=== PATIENT | male | born 1955 | race African-American/Black ===

== ENCOUNTER 2017-02-03 02:05 | Inpatient (IN) | payer MEDICAID ==
--- NOTE | 2017-02-03 02:19 | ER Document Report ---
ED General - General Chief Complaint: General Weakness Stated Complaint: GENEREAL WEAKNESS Time Seen by Provider: 02/03/17 02:09 Notes: Patient is a 61-year-old male presents with complaint of diarrhea and slurred speech. He says his symptoms been ongoing for several days. He said on Wednesday his friend came back from [place] and they drink some [place] and run. Since then he has been having issues with diarrhea. He started having slurring of speech. He denies any weakness or numbness in any of his extremities. He does have history of high blood pressure and does take high blood pressure medications. He denies any pain. He denies headache. No abdominal pain. No chest pain. He denies fevers. Past Medical History - Social History Smoking Status: Unknown if Ever Smoked Frequency of alcohol use: None Drug Abuse: None Family History: Reviewed & Not Pertinent Review of Systems - Review of Systems Notes: My Normal Review Basic REVIEW OF SYSTEMS: CONSTITUTIONAL : Denies fever, chills, or sweats. Denies recent illness. EENT: Denies eye, ear, throat, or mouth pain or symptoms. Denies nasal or sinus congestion. CARDIOVASCULAR: Denies chest pain. RESPIRATORY: Denies cough, cold, or chest congestion. Denies shortness of breath, difficulty breathing, or wheezing. GASTROINTESTINAL: Denies abdominal pain. Diarrhea. Denies constipation. Last BM: MUSCULOSKELETAL: Denies neck or back pain or joint pain or swelling. SKIN: Denies rash or skin lesions. NEUROLOGICAL: Denies altered mental status or loss of consciousness. Denies headache. Denies weakness or paralysis or loss of use of either side. Slurred speech. Denies sensory or motor loss. ALL OTHER SYSTEMS REVIEWED AND NEGATIVE. Physical Exam - Vital signs Vitals: Resp BP 34 H 157/116 H 02/03/17 02:12 02/03/17 02:12 - Notes Notes: General Appearance: Well nourished, alert, cooperative, no acute distress, no obvious discomfort. Vitals: reviewed, See vital signs table. Head: no swelling or tenderness to the head Eyes: PERRL, EOMI, Conjuctiva clear Mouth: No decreasd moisture Throat: No tonsillar inflammation, No airway obstruction Neck: Supple, no neck tenderness Lungs: No wheezing, No rales, No rhonci, No accessory muscle use, good air exchange bilaterally. Heart: Normal rate, Regular rythm, Abdomen: Normal BS, soft, No rigidity, No abdominal tenderness, No guarding, no rebound, no abdominal masses, Extremities: strength 5/5 in all extremities, good pulses in all extremities, no swelling or tenderness in the extremities, no edema. Skin: warm, dry, appropriate color, no rash Neuro: speech is slurred, oriented x 3, normal affect, responds appropriately to questions. Cranial nerves II through XII are intact with exception of slurred speech. Patient has good strength in all 4 extremities. Distal sensation intact. Gait not tested. Course - Re-evaluation Re-evalutation: 02/03/17 05:25 I attempted lumbar punctures patient initially had some slurring of speech. Lumbar puncture was unsuccessful in 2 attempts. After a fluid bolus patient is now talking normally. He is he has any questions appropriately and his speech is not slurred. Less concerned with meningitis or encephalitis this time being the patient's speech is completely normalized. We are still awaiting his urinalysis. He is been able to urinate. I suspect that he is very dehydrated. Patient will require admission. It is unclear if the patient does have some some form of infection or if this is all metabolic. 02/03/17 05:35 I did speak with Dr. Renee who agrees to admit the patient. At this time the exact cause of his condition is unclear. He has improved greatly since being here after receiving IV fluids. His heart rate has improved. His slurred speech has resolved. I initially did attempt a lumbar puncture because of the slurred speech and being unclear if this was infection. Being the patient's neurologic status is completely back to normal think it is unlikely that he has encephalitis or meningitis. At this time I feel the patient stable for admission. We are still awaiting a urinalysis. We will continue give the patient some IV fluids. I suspect he is very dehydrated and that is why is given a urine. Patient continues to deny any pain. Dictation of this chart was performed using voice recognition software; therefore, there may be some unintended grammatical errors. - Vital Signs Vital signs: Temp Pulse Resp BP Pulse Ox 27 H 156/105 H 93 02/03/17 05:20 02/03/17 05:20 02/03/17 05:20 - Laboratory Result Diagrams: 02/03/17 02:12 02/03/17 03:00 Laboratory results interpreted by me: 02/03/17 02/03/17 02/03/17 02:12 03:00 03:00 WBC 14.4 H RDW 14.4 H Seg Neutrophils % 87.3 H Lymphocytes % 7.3 L Absolute Neutrophils 12.5 H Sodium 134.3 L Potassium 3.2 L Carbon Dioxide 14 L BUN 48 H Creatinine 2.94 H Est GFR ( Amer) 27 L Est GFR (Non-Af Amer) 22 L Glucose 137 H Direct Bilirubin 0.6 H AST 143 H ALT 84 H Creatine Kinase 2208 H CK-MB (CK-2) 8.81 H - EKG Interpretation by Me Additional EKG results interpreted by me: 02/03/17 02:23 EKG is reviewed and interpreted by me. EKG shows sinus tachycardia with a rate of [address] segment elevation or depression. No ischemic T-wave inversions. NC interval, QRS duration, QTc intervals are within normal range. No old EKG available for comparison. Discharge - Discharge Clinical Impression: Metabolic acidosis, Slurred speech, Dehydration Leukocytosis Qualifiers: Leukocytosis type: unspecified Qualified Code(s): D72.829 - Elevated white blood cell count, unspecified Condition: Stable Disposition: ADMITTED INPATIENT Admitting Provider: Nicholas Unit Admitted: IMCU Referrals: MERRILL RENEE MD [Primary Care Provider] - Follow up as needed
[2017-02-03 02:42] LABS: ABSOLUTE BASOPHILS # (AUTO) 0.1 10^3/uL (0.0-0.2); ABSOLUTE LYMPHOCYTES (AUTO) 1.1 10^3/uL (0.5-4.7); ABSOLUTE MONOCYTES (AUTO) 0.7 10^3/uL (0.1-1.4); ABSOLUTE NEUT (AUTO) 12.5 10^3/uL (1.7-8.2); BASOPHILS % (AUTO) 0.5 % (0-2); HEMATOCRIT 46.9 % (37.9-51.0); HEMOGLOBIN 16.1 g/dL (13.5-17.0); HGB HCT DIFFERENCE 1.4; LYMPHOCYTES % (AUTO) 7.3 % (13-45); MEAN CORPUSCULAR HEMOGLOBIN 33.1 pg (27.0-33.4); MEAN CORPUSCULAR HGB CONC 34.4 g/dL (32.0-36.0); MEAN CORPUSCULAR VOLUME 96 fl (80-97); MONOCYTES % (AUTO) 4.9 % (3-13); RED BLOOD COUNT 4.88 10^6/uL (4.35-5.55); RED CELL DISTRIBUTION WIDTH 14.4 % (11.5-14.0); SEGMENTED NEUTROPHILS % (AUTO) 87.3 % (42-78); WHITE BLOOD COUNT 14.4 10^3/uL (4.0-10.5)
--- NOTE | 2017-02-03 03:08 | RADIOLOGY REPORT (SQ) ---
EXAM DESCRIPTION: CT HEAD WITHOUT COMPLETED DATE/TIME: 02/03/2017 2:31 am REASON FOR STUDY: confusion COMPARISON: None. TECHNIQUE: Axial images acquired through the brain without intravenous contrast. Images reviewed wi th bone, brain and subdural windows. Images stored on PACS. All CT scanners at this facility use dose modulation, iterative reconstruction, and/or weight based d osing when appropriate to reduce radiation dose to as low as reasonably achievable (ALARA). [facility]: Dose Right [facility]: CareDose [facility]: Dose Right [facility]: Teradose 4D [facility]: Smart Particle RADIATION DOSE: Up-to-date CT equipment and radiation dose reduction techniques were employed. CTDIv ol: 55.3 mGy. DLP: 996 mGy-cm. mGy. LIMITATIONS: None. FINDINGS: VENTRICLES: Normal size and contour. CEREBRUM: No mass effect. No hemorrhage. No midline shift. Normal matamoros/white matter differentiatio n. No evidence for acute territorial infarction. CEREBELLUM: No mass effect. No hemorrhage. No alteration of density. No evidence for acute infarct ion. EXTRAAXIAL SPACES: No fluid collections. ORBITS AND GLOBE: Symmetrical contour of the globes. CALVARIUM: No depressed skull fracture. PARANASAL SINUSES: No air-fluid level. SOFT TISSUES: No hematoma. IMPRESSION: No acute intracranial hemorrhage or acute territorial infarct. COMMENT: Quality ID # 436: Final reports with documentation of one or more dose reduction techniques (e.g., Automated exposure control, adjustment of the mA and/or kV according to patient size, use of iterative reconstruction technique) TECHNICAL DOCUMENTATION: JOB ID: [id number]- All Rights Reserved
--- NOTE | 2017-02-03 03:19 | RADIOLOGY REPORT (SQ) ---
EXAM DESCRIPTION: CHEST SINGLE VIEW COMPLETED DATE/TIME: 02/03/2017 2:35 am REASON FOR STUDY: confusion COMPARISON: None. EXAM PARAMETERS: NUMBER OF VIEWS: One view. TECHNIQUE: Single frontal radiographic view of the chest acquired. RADIATION DOSE: NA LIMITATIONS: None. FINDINGS: LUNGS AND PLEURA: Ground-glass opacity in the left upper lobe. No pleural effusion or pne umothorax. MEDIASTINUM AND HILAR STRUCTURES: No masses. Contour normal. HEART AND VASCULAR STRUCTURES: Heart normal in size. Normal vasculature. BONES: No acute findings. HARDWARE: None in the chest. IMPRESSION: Ground-glass opacity in the left upper lobe, may represent pneumonia. Radiographic foll owup recommended to ensure complete resolution and exclude a different etiology. TECHNICAL DOCUMENTATION: JOB ID: [id number]
[2017-02-03 03:28] LABS: ALANINE AMINOTRANSFERASE 84 U/L (21-72); ALBUMIN 3.6 g/dL (3.5-5.0); ALKALINE PHOSPHATASE 53 U/L (38-126); ANION GAP 17 (5-19); ASPARTATE AMINO TRANSFERASE 143 U/L (17-59); BILIRUBIN,DIRECT 0.6 mg/dL (0.0-0.4); BILIRUBIN,TOTAL 0.6 mg/dL (0.2-1.3); BLOOD UREA NITROGEN 48 mg/dL (7-20); CALCIUM 8.9 mg/dL (8.4-10.2); CARBON DIOXIDE 14 mmol/L (22-30); CHLORIDE 103 mmol/L (98-107); CREATININE RESULT 2.94 mg/dL (0.52-1.25); GLUCOSE 137 mg/dL (75-110); POTASSIUM 3.2 mmol/L (3.6-5.0); SODIUM 134.3 mmol/L (137-145); TOTAL PROTEIN 6.7 g/dL (6.3-8.2)
[2017-02-03 03:36] LABS: ALCOHOL < 10 mg/dL (NONE DETECTED); CREATINE KINASE 2208 U/L (55-170)
[2017-02-03 03:40] LABS: CREATINE KINASE MB 8.81 ng/mL (<4.55)
[2017-02-03 03:49] LABS: TROPONIN I 0.039 ng/mL
[2017-02-03] MEDS ORDERED: NORMAL SALINE 1000 ML 1,000 ML IV ONE ×2 (03:59→04:22)
[2017-02-03] MEDS ORDERED: CEFTRIAXONE INJ 1000 MG VIAL IV ONE (04:21)
[2017-02-03] MEDS ORDERED: LIDOCAINE 1% INJ-PF (10 MG/ML) 30 ML SDV INJ ONE (04:22)
--- NOTE | 2017-02-03 07:52 | EKG REPORT ---
SEVERITY:- ABNORMAL ECG - SINUS TACHYCARDIA LEFT AXIS DEVIATION OLD INFERIOR [facility] : Confirmed by: Jacobo Macias MD 03-Feb-2017 07:52:15
[2017-02-03 08:32] LABS: ARTERIAL BLOOD BASE EXCESS -7.3 mmol/L; ARTERIAL BLOOD O2 SATURATION 97.1 % (94-98)
--- NOTE | 2017-02-03 09:08 | RADIOLOGY REPORT (SQ) ---
EXAM DESCRIPTION: CHEST PA/LAT COMPLETED DATE/TIME: 02/03/2017 8:41 am REASON FOR STUDY: acute kidney injury COMPARISON: AP chest 02/03/2017 EXAM PARAMETERS: NUMBER OF VIEWS: two views TECHNIQUE: Digital Frontal and Lateral radiographic views of the chest acquired. RADIATION DOSE: NA LIMITATIONS: none FINDINGS: LUNGS AND PLEURA: Persistent airspace disease in the left upper lobe worrisome for pneumon ia. Remainder of the lungs are well inflated and clear. No pleural effusion. No pneumothorax. MEDIASTINUM AND HILAR STRUCTURES: No masses or contour abnormalities. HEART AND VASCULAR STRUCTURES: Heart normal size. No evidence for failure. BONES: No acute findings. HARDWARE: None in the chest. OTHER: No other significant finding. IMPRESSION: Persistent airspace disease left upper lobe. TECHNICAL DOCUMENTATION: JOB ID: [id number] [employer]- All Rights Reserved
--- NOTE | 2017-02-03 09:13 | RADIOLOGY REPORT (SQ) ---
EXAM DESCRIPTION: U/S RETROPERITON (RENAL/AORTA) COMPLETED DATE/TIME: 02/03/2017 8:57 am REASON FOR STUDY: acute kidney injury COMPARISON: None. TECHNIQUE: Dynamic and static grayscale images acquired of the kidneys and bladder and recorded on P ACS. Additional selected color Doppler and spectral images recorded. LIMITATIONS: None. FINDINGS: RIGHT KIDNEY: 9.5 cm in length with normal cortical thickness but mild increased cortical echogenicity. No solid or suspicious masses. No hydronephrosis. No calcifications. LEFT KIDNEY: 9.7 cm in length with normal cortical thickness with mild increased cortical echogenici ty. No solid or suspicious masses. No hydronephrosis. No calcifications. BLADDER: No masses. Distended with urine. There is debris in the dependent portion of the bladder OTHER FINDINGS: No other significant finding. IMPRESSION: Mild increased renal parenchymal echogenicity from medical renal disease. No hydronephr osis, cysts, stones, or masses. TECHNICAL DOCUMENTATION: JOB ID: [id number] [employer]- All Rights Reserved
[2017-02-03 10:09] LABS: ABSOLUTE LYMPHOCYTES (AUTO) 1.3 10^3/uL (0.5-4.7); ABSOLUTE MONOCYTES (AUTO) 0.7 10^3/uL (0.1-1.4); ABSOLUTE NEUT (AUTO) 9.5 10^3/uL (1.7-8.2); BASOPHILS % (AUTO) 0.3 % (0-2); HEMATOCRIT 47.1 % (37.9-51.0); HEMOGLOBIN 16.1 g/dL (13.5-17.0); HGB HCT DIFFERENCE 1.2; LYMPHOCYTES % (AUTO) 11.6 % (13-45); MEAN CORPUSCULAR HEMOGLOBIN 33.1 pg (27.0-33.4); MEAN CORPUSCULAR HGB CONC 34.2 g/dL (32.0-36.0); MEAN CORPUSCULAR VOLUME 97 fl (80-97); MONOCYTES % (AUTO) 6.2 % (3-13); RED BLOOD COUNT 4.86 10^6/uL (4.35-5.55); RED CELL DISTRIBUTION WIDTH 14.7 % (11.5-14.0); SEGMENTED NEUTROPHILS % (AUTO) 81.9 % (42-78); WHITE BLOOD COUNT 11.6 10^3/uL (4.0-10.5)
[2017-02-03 10:18] LABS: PROTHROMBIN TIME 14.4 SEC (11.4-15.4)
[2017-02-03 10:19] LABS: PARTIAL THROMBOPLASTIN TIME 36.9 SEC (23.5-35.8)
[2017-02-03 10:38] LABS: ALANINE AMINOTRANSFERASE 103 U/L (21-72); ALBUMIN 3.6 g/dL (3.5-5.0); ALKALINE PHOSPHATASE 56 U/L (38-126); AMYLASE 81 U/L (30-110); ANION GAP 17 (5-19); ASPARTATE AMINO TRANSFERASE 187 U/L (17-59); BILIRUBIN,DIRECT 0.5 mg/dL (0.0-0.4); BILIRUBIN,TOTAL 0.5 mg/dL (0.2-1.3); BLOOD UREA NITROGEN 47 mg/dL (7-20); CARBON DIOXIDE 16 mmol/L (22-30); CHLORIDE 103 mmol/L (98-107); CREATININE RESULT 2.91 mg/dL (0.52-1.25); GLUCOSE 125 mg/dL (75-110); LIPASE 230.9 U/L (23-300); MAGNESIUM 2.5 mg/dL (1.6-2.3); POTASSIUM 3.2 mmol/L (3.6-5.0); SODIUM 136.3 mmol/L (137-145); TOTAL PROTEIN 6.8 g/dL (6.3-8.2)
[2017-02-03 10:51] LABS: TROPONIN I 0.046 ng/mL
[2017-02-03 11:09] LABS: THYROID STIMULATING HORMONE 1.21 uIU/mL (0.47-4.68)
[2017-02-03] MEDS ORDERED: ACETAMINOPHEN 325 MG TABLET ONE (12:21)
[2017-02-03] MEDS: HEPARIN SOD (PORCINE) 5,000 UNIT/ML 1 ML SYRINGE SUBCUT SCH ×2 (13:50→21:37)
[2017-02-03] MEDS: METRONIDAZOLE 500 MG/NS RTU 100 ML IV SCH ×2 (13:50→21:41)
[2017-02-03] MEDS ORDERED: LEVOFLOXACIN 500 MG/D5W RTU 500 MG/100 ML RTUPB IV ONE (14:00)
[2017-02-03 14:33] LABS: CREATINE KINASE MB 15.7 ng/mL (<4.55); TROPONIN I 0.046 ng/mL
[2017-02-03] MEDS ORDERED: CEFEPIME HCL 1.5 GM in DEXTROSE 5%-WATER 50 ML IV ONE (15:00)
--- NOTE | 2017-02-03 15:05 | RADIOLOGY REPORT (SQ) ---
EXAM DESCRIPTION: CT CHEST WITHOUT COMPLETED DATE/TIME: 02/03/2017 2:54 pm REASON FOR STUDY: PNEUMONIA COMPARISON: Chest films 02/03/2017 TECHNIQUE: CT scan performed of the chest without intravenous contrast. Images reviewed with lung, soft tissue and bone windows. Reconstructed coronal and sagittal MPR images reviewed. All images st ored on PACS. All CT scanners at this facility use dose modulation, iterative reconstruction, and/or weight based d osing when appropriate to reduce radiation dose to as low as reasonably achievable (ALARA). [facility]: Dose Right [facility]: CareDose [facility]: Dose Right [facility]: Teradose 4D [facility]: Smart [employer] RADIATION DOSE: Up-to-date CT equipment and radiation dose reduction techniques were employed. CTDIv ol: 9.4 mGy. DLP: 344 mGy-cm. mGy. LIMITATIONS: No technical limitations. FINDINGS: LUNGS AND PLEURA: There is dense consolidation in the left upper lobe worrisome for acute pneumonia. There is minimal atelectasis in both posterior costophrenic sulci. No significant pleural effusion. No pneumothorax. HILAR AND MEDIASTINAL STRUCTURES: No identified masses or abnormal nodes. No obvious aneurysm. HEART AND VASCULAR STRUCTURES: No aneurysm. No pericardial effusion. 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 Very heavy coronary artery calcifications. UPPER ABDOMEN: No significant findings. Limited exam. THYROID AND OTHER SOFT TISSUES: No masses. No adenopathy. BONES: No significant finding. HARDWARE: None in the chest. OTHER: No other significant findings. IMPRESSION: Left upper lobe pneumonia. TECHNICAL DOCUMENTATION: JOB ID: [id number] Quality ID # [id number]: Final reports with documentation of one or more dose reduction techniques (e.g., Au tomated exposure control, adjustment of the mA and/or kV according to patient size, use of iterative reconstruction technique) 2010 [employer]- All Rights Reserved
[2017-02-03] MEDS ORDERED: POTASSIUM CHLORIDE 10 MEQ TABLET.SA PO ONE (15:30)
[2017-02-03 16:47] LABS: AMORPHOUS SEDIMENT,URINE TRACE /HPF; APPEARANCE,URINE CLOUDY; BILIRUBIN,URINE NEGATIVE (NEGATIVE); GLUCOSE, URINE NEGATIVE (NEGATIVE); KETONES,URINE NEGATIVE (NEGATIVE); LEUKOCYTE ESTERASE,URINE NEGATIVE (NEGATIVE); NITRITE,URINE NEGATIVE (NEGATIVE); PROTEIN,URINE 100 mg/dL (NEGATIVE); URINE SPECIFIC GRAVITY 1.013; UROBILINOGEN,URINE NEGATIVE mg/dL (<2.0)
[2017-02-03 16:55] LABS: URINE BARBITURATES SCREEN NEGATIVE; URINE METHADONE SCREEN NEGATIVE; URINE OPIATES LOW NEGATIVE; URINE PHENCYCLIDINE SCREEN NEGATIVE
--- NOTE | 2017-02-03 16:56 | PDOC H&P ---
History of Present Illness Admission Date/PCP: 02/03/17 07:48 MERRILL RENEE MD History of Present Illness: BUTCH BIRD is a 61 year old male, he has a history of hypertension he came to the emergency room last night for evaluation of generalized weakness he apparently had alcohol, rum on Wednesday with a friend that came back from [place]. Since he had the alcohol he has been having symptoms of diarrhea and recently his speech was slurred. There is no focal weakness. He was evaluated in the emergency room, lumbar puncture was attempted without success. A CAT scan of the head was done in the emergency room, it was negative for any acute pathology the initial blood work that was done in the emergency room showed WBC 14.4, BUN 48, serum creatinine 2.94, CPK 2208, AST 143, ALT 84 EKG showed sinus tachycardia with the rate of 1 22 bpm. He was also acidotic. When I saw patient on the floor, he was awake, the speech was slurred to some degree.. CT chest was done without contrast, it showed a dense consolidation in the left upper lobe worrisome for acute pneumonia, because of the acute kidney injury kidney ultrasound was done it showed mild increased renal parenchyma echogenicity for medical renal disease there was no hydronephrosis no cyst no masses or stones. Patient stated that after he took the alcohol he felt intoxicated very quickly. Past Medical History Cardiac Medical History: Reports: Hypertension Psychiatric Medical History: Reports: Depression Social History Smoking Status: Current Some Day Smoker Cigarettes Packs Per Day: 10 Frequency of Alcohol Use: Occasional Hx Recreational Drug Use: No Hx Prescription Drug Abuse: No - Advance Directive Resuscitation Status: Full Code Family History Family History: Reviewed & Not Pertinent Parental Family History Reviewed: Yes Children Family History Reviewed: Yes Sibling(s) Family History Reviewed.: Yes Medication/Allergy Home Medications: Amlodipine Besylate [Norvasc 10 mg Tablet] 10 mg PO DAILY 02/03/17 Hydrochlorothiazide [Hydrodiuril 12.5 mg Capsule] 12.5 mg PO DAILY 02/03/17 Metoprolol Succinate [Toprol Xl 25 mg Tab.sr] 25 mg PO Q12 02/03/17 Allergies/Adverse Reactions: lisinopril Allergy (Verified 02/03/17 08:12) Angioedema Review of Systems Constitutional: PRESENT: fever(s) Eyes: ABSENT: visual disturbances Ears: ABSENT: hearing changes Cardiovascular: ABSENT: as per HPI, chest pain, dyspnea on exertion, edema, orthropnea, palpitations, other Respiratory: PRESENT: cough, dyspnea Gastrointestinal: PRESENT: diarrhea Genitourinary: ABSENT: as per HPI, difficulty urinating, dysuria, hematuria, nocturia, other Musculoskeletal: ABSENT: joint swelling Integumentary: ABSENT: rash, wounds Neurological: PRESENT: abnormal speech Psychiatric: ABSENT: anxiety, depression, homidical ideation, suicidal ideation Endocrine: ABSENT: cold intolerance, heat intolerance, menstrual abnormalities, polydipsia, polyuria Hematologic/Lymphatic: ABSENT: easy bleeding, easy bruising, lymphadenopathy Physical Exam Vital Signs: Temp Pulse Resp BP Pulse Ox 98.2 F 86 16 143/92 H 99 02/03/17 15:10 02/03/17 15:10 02/03/17 15:10 02/03/17 15:10 02/03/17 15:10 Intake & Output 02/02/17 02/03/17 02/04/17 06:59 06:59 06:59 Intake Total 710 Balance 710 Weight 87.9 kg General appearance: PRESENT: no acute distress, well-developed, well-nourished Head exam: PRESENT: atraumatic, normocephalic Eye exam: PRESENT: conjunctiva pink, EOMI, PERRLA Ear exam: PRESENT: normal external ear exam Mouth exam: PRESENT: dry mucosa Neck exam: PRESENT: full ROM Respiratory exam: PRESENT: rales Cardiovascular exam: PRESENT: RRR, +S1, +S2 Pulses: PRESENT: normal dorsalis pedis pul, +2 pedal pulses bilateral Vascular exam: PRESENT: normal capillary refill GI/Abdominal exam: PRESENT: distended, normal bowel sounds, soft Rectal exam: PRESENT: deferred Neurological exam: PRESENT: alert, CN II-XII grossly intact Skin exam: PRESENT: dry, intact, warm Results Laboratory Results: 02/03/17 09:48 02/03/17 09:48 02/03/17 02/03/17 02/03/17 08:20 09:48 09:48 WBC 11.6 H RBC 4.86 Hgb 16.1 Hct 47.1 MCV 97 MCH 33.1 MCHC 34.2 RDW 14.7 H Plt Count 195 Seg Neutrophils % 81.9 H Lymphocytes % 11.6 L Monocytes % 6.2 Eosinophils % 0.0 Basophils % 0.3 Absolute Neutrophils 9.5 H Absolute Lymphocytes 1.3 Absolute Monocytes 0.7 Absolute Eosinophils 0.0 Absolute Basophils 0.0 Carbonic Acid 0.67 L HCO3/H2CO3 Ratio 21:1 ABG pH 7.43 ABG pCO2 22.4 L ABG pO2 87.6 ABG HCO3 14.6 L ABG O2 Saturation 97.1 ABG Base Excess -7.3 FiO2 21 Sodium Potassium Chloride Carbon Dioxide Anion Gap BUN Creatinine Est GFR ( Amer) Est GFR (Non-Af Amer) Glucose Lactic Acid 1.8 Calcium Phosphorus Magnesium Total Bilirubin AST ALT Alkaline Phosphatase Ammonia Total Protein Albumin Amylase Lipase TSH Free T4 02/03/17 02/03/17 02/03/17 09:48 09:48 09:48 WBC RBC Hgb Hct MCV MCH MCHC RDW Plt Count Seg Neutrophils % Lymphocytes % Monocytes % Eosinophils % Basophils % Absolute Neutrophils Absolute Lymphocytes Absolute Monocytes Absolute Eosinophils Absolute Basophils Carbonic Acid HCO3/H2CO3 Ratio ABG pH ABG pCO2 ABG pO2 ABG HCO3 ABG O2 Saturation ABG Base Excess FiO2 Sodium 136.3 L Potassium 3.2 L Chloride 103 Carbon Dioxide 16 L Anion Gap 17 BUN 47 H Creatinine 2.91 H Est GFR ( Amer) 27 L Est GFR (Non-Af Amer) 22 L Glucose 125 H Lactic Acid Calcium 9.0 Phosphorus 4.0 Magnesium 2.5 H Total Bilirubin 0.5 AST 187 H ALT 103 H Alkaline Phosphatase 56 Ammonia < 8.7 L Total Protein 6.8 Albumin 3.6 Amylase 81 Lipase 230.9 TSH 1.21 Free T4 1.25 02/03/17 02/03/17 02/03/17 09:48 09:48 09:48 Creatine Kinase 2837 H CK-MB (CK-2) 16.00 H Troponin I 0.046 NT-Pro-B Natriuret Pep 184 02/03/17 02/03/17 13:52 13:52 Creatine Kinase 2747 H CK-MB (CK-2) 15.70 H Troponin I 0.046 NT-Pro-B Natriuret Pep Impressions: Chest CT 02/03/17 00:00 IMPRESSION: Left upper lobe pneumonia. Renal Ultrasound 02/03/17 00:00 IMPRESSION: Mild increased renal parenchymal echogenicity from medical renal disease. No hydronephrosis, cysts, stones, or masses. Head CT 02/03/17 02:14 IMPRESSION: No acute intracranial hemorrhage or acute territorial infarct. Chest X-Ray 02/03/17 07:51 IMPRESSION: Persistent airspace disease left upper lobe. Assessment & Plan - Diagnosis (1) Aspiration pneumonia of left upper lobe Qualifiers: Aspiration pneumonia type: unspecified Qualified Code(s): J69.0 - Pneumonitis due to inhalation of food and vomit Is this a current diagnosis for this admission?: Yes (2) Left upper lobe pneumonia Qualifiers: Pneumonia type: aspiration pneumonia Aspiration pneumonia type: unspecified Qualified Code(s): J69.0 - Pneumonitis due to inhalation of food and vomit Plan: Patient presented with left upper lobe pneumonia probably due to aspiration after he was intoxicated with alcohol, he will empirically be treated with IV antibiotic to cover community-acquired organisms including gram-negative pathogens and gram-positive organisms. (3) Acute kidney injury Is this a current diagnosis for this admission?: Yes Plan: The urinalysis was positive for protein, blood on dipstick, microscopic showed red blood cell cast, suggesting acute glomerulonephritis. The kidney ultrasound that was done suggest medical renal disease the acute glomerulonephritis is probably infection related. (4) Rhabdomyolysis Qualifiers: Rhabdomyolysis type: non-traumatic Qualified Code(s): M62.82 - Rhabdomyolysis Is this a current diagnosis for this admission?: Yes Plan: The CPK is elevated, there is associated acute kidney injury, urine myoglobin is ordered. He be treated with IV fluid isotonic saline at 120 cc/h (5) Slurred speech Is this a current diagnosis for this admission?: Yes Plan: This slow speech could be due to a metabolic encephalopathy, CT scan of the head was negative for any acute pathology, MRI of the head is ordered.
--- NOTE | 2017-02-03 17:50 | RADIOLOGY REPORT (SQ) ---
EXAM DESCRIPTION: MRI HEAD WITHOUT COMPLETED DATE/TIME: 02/03/2017 5:36 pm REASON FOR STUDY: slurred speech,suspect stroke COMPARISON: CT brain 02/03/2017 TECHNIQUE: Multiplanar imaging includes non-contrasted T1, T2, FLAIR, and diffusion with ADC map seq uences. Images stored on PACS. LIMITATIONS: Motion artifact FINDINGS: ANATOMY: No anomalies. Normal vascular flow voids. Pituitary fossa normal. CSF SPACES: Normal in size and contour. No hemorrhage. CEREBRUM: Sulci and gyri normal in size and contour. Minimal spotty increased bifrontal and bipariet al white matter signal on FLAIR imaging from small vessel ischemic change. 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 No evidence of hemorrhage, mass, or extraaxial fluid collection. POSTERIOR FOSSA: No signal alteration. No hemorrhage. No edema, masses or mass effect. Internal antionette tory canals, cerebello-pontine angles, mastoids normal. DIFFUSION IMAGING: Negative for acute or sub-acute infarction. ORBITS: No masses. Globes normal. PARANASAL SINUSES: No fluid levels. Mucosa normal. OTHER: No other significant finding. IMPRESSION: Minimal chronic white matter disease. 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 No acute find ings. EVIDENCE OF ACUTE STROKE: NO. TECHNICAL DOCUMENTATION: JOB ID: [id number] [employer]- All Rights Reserved
[2017-02-03 21:21] LABS: CREATINE KINASE MB 14.5 ng/mL (<4.55); TROPONIN I 0.032 ng/mL
[2017-02-03] MEDS: CEFEPIME HCL 1.5 GM in DEXTROSE 5%-WATER 50 ML IV SCH (22:44)
[2017-02-03] MEDS: NORMAL SALINE 1000 ML 1,000 ML IV PRN (22:46)
[2017-02-04] MEDS: ACETAMINOPHEN 325 MG TABLET PO PRN ×2 (00:12→14:32)
[2017-02-04] MEDS: METRONIDAZOLE 500 MG/NS RTU 100 ML IV SCH ×3 (05:48→21:21)
[2017-02-04] MEDS: HEPARIN SOD (PORCINE) 5,000 UNIT/ML 1 ML SYRINGE SUBCUT SCH ×3 (05:48→21:24)
[2017-02-04 06:42] LABS: ABSOLUTE MONOCYTES (AUTO) 0.6 10^3/uL (0.1-1.4); ABSOLUTE NEUT (AUTO) 6.6 10^3/uL (1.7-8.2); BASOPHILS % (AUTO) 0.4 % (0-2); EOSINOPHILS % (AUTO) 0.1 % (0-6); HEMATOCRIT 40.6 % (37.9-51.0); HGB HCT DIFFERENCE 1.1; LYMPHOCYTES % (AUTO) 12.1 % (13-45); MEAN CORPUSCULAR HGB CONC 34.1 g/dL (32.0-36.0); MEAN CORPUSCULAR VOLUME 97 fl (80-97); MONOCYTES % (AUTO) 7.1 % (3-13); RED CELL DISTRIBUTION WIDTH 14.8 % (11.5-14.0); SEGMENTED NEUTROPHILS % (AUTO) 80.3 % (42-78); WHITE BLOOD COUNT 8.2 10^3/uL (4.0-10.5)
[2017-02-04 06:43] LABS: HEMOGLOBIN 13.9 g/dL (13.5-17.0)
[2017-02-04 07:06] LABS: ALANINE AMINOTRANSFERASE 112 U/L (21-72); ALKALINE PHOSPHATASE 53 U/L (38-126); ANION GAP 12 (5-19); ASPARTATE AMINO TRANSFERASE 173 U/L (17-59); BILIRUBIN,DIRECT 0.5 mg/dL (0.0-0.4); BILIRUBIN,TOTAL 0.6 mg/dL (0.2-1.3); BLOOD UREA NITROGEN 32 mg/dL (7-20); CALCIUM 8.8 mg/dL (8.4-10.2); CARBON DIOXIDE 14 mmol/L (22-30); CHLORIDE 109 mmol/L (98-107); CHOLESTEROL 119.71 mg/dL (0-200); CREATININE RESULT 1.85 mg/dL (0.52-1.25); Direct HDL 14 mg/dL (>40); GLUCOSE 101 mg/dL (75-110); POTASSIUM 3.2 mmol/L (3.6-5.0); SODIUM 135.4 mmol/L (137-145); TRIGLYCERIDES 243 mg/dL (<150)
[2017-02-04 07:18] LABS: DIRECT LDL 40 mg/dL (<100)
[2017-02-04 07:26] LABS: VLDL CHOLESTEROL 48.6 mg/dL (10-31)
[2017-02-04] MEDS: LEVOFLOXACIN 250 MG/D5W RTU 250 MG/50 ML RTUPB IV SCH (09:20)
[2017-02-04] MEDS: CEFEPIME HCL 1.5 GM in DEXTROSE 5%-WATER 50 ML IV SCH ×2 (10:28→22:04)
[2017-02-04] MEDS: NORMAL SALINE 1000 ML 1,000 ML IV PRN (10:29)
[2017-02-04] MEDS ORDERED: POTASSIUM CHLORIDE 10 MEQ TABLET.SA PO ONE (19:30)
--- NOTE | 2017-02-04 21:03 | PDOC PROGRESS REPORT ---
Subjective Progress Note for:: 02/04/17 Subjective:: Patient was admitted yesterday when he presented with severe pneumonia, acute kidney injury with sepsis. The blood culture is growing gram positive cocci in clusters. The urine drug screen was positive for cocaine and marijuana. I discussed the urine drug screen results with the patient today, he seems to be ignorant of the fact that he does cocaine. Physical Exam Vital Signs: Temp Pulse Resp BP Pulse Ox 98.8 F 67 19 134/85 H 100 02/04/17 15:25 02/04/17 19:00 02/04/17 15:25 02/04/17 15:25 02/04/17 15:25 Intake & Output 02/03/17 02/04/17 02/05/17 06:59 06:59 06:59 Intake Total 2910 2190 Output Total 1600 2295 Balance 1310 -105 Weight 89.4 kg General appearance: PRESENT: mild distress Eye exam: PRESENT: PERRLA Respiratory exam: PRESENT: clear to auscultation shiv Cardiovascular exam: PRESENT: +S1, +S2 Extremities exam: PRESENT: other - The feet is very crusty dry with severe onychomycosis of the nails of the feet Neurological exam: PRESENT: alert Results Laboratory Results: 02/04/17 05:34 02/04/17 05:34 02/04/17 02/04/17 05:34 05:34 WBC 8.2 RBC 4.20 L Hgb 13.9 D Hct 40.6 MCV 97 MCH 33.0 MCHC 34.1 RDW 14.8 H Plt Count 151 Seg Neutrophils % 80.3 H Lymphocytes % 12.1 L Monocytes % 7.1 Eosinophils % 0.1 Basophils % 0.4 Absolute Neutrophils 6.6 Absolute Lymphocytes 1.0 Absolute Monocytes 0.6 Absolute Eosinophils 0.0 Absolute Basophils 0.0 Sodium 135.4 L Potassium 3.2 L Chloride 109 H Carbon Dioxide 14 L Anion Gap 12 BUN 32 H Creatinine 1.85 H Est GFR ( Amer) 45 L Est GFR (Non-Af Amer) 37 L Glucose 101 Calcium 8.8 Total Bilirubin 0.6 AST 173 H ALT 112 H Alkaline Phosphatase 53 Total Protein 6.0 L Albumin 3.0 L Triglycerides 243 H Cholesterol 119.71 LDL Cholesterol Direct 40 VLDL Cholesterol 48.6 H HDL Cholesterol 14 L 02/03/17 02/03/17 02/03/17 09:48 09:48 09:48 Creatine Kinase 2837 H CK-MB (CK-2) 16.00 H Troponin I 0.046 NT-Pro-B Natriuret Pep 184 02/03/17 02/03/17 02/03/17 13:52 13:52 20:46 Creatine Kinase 2747 H 2757 H CK-MB (CK-2) 15.70 H Troponin I 0.046 NT-Pro-B Natriuret Pep 02/03/17 20:46 Creatine Kinase CK-MB (CK-2) 14.50 H Troponin I 0.032 NT-Pro-B Natriuret Pep Impressions: Chest CT 02/03/17 00:00 IMPRESSION: Left upper lobe pneumonia. Head MRI 02/03/17 00:00 IMPRESSION: Minimal chronic white matter disease. 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 No acute findings. EVIDENCE OF ACUTE STROKE: NO. Renal Ultrasound 02/03/17 00:00 IMPRESSION: Mild increased renal parenchymal echogenicity from medical renal disease. No hydronephrosis, cysts, stones, or masses. Head CT 02/03/17 02:14 IMPRESSION: No acute intracranial hemorrhage or acute territorial infarct. Chest X-Ray 02/03/17 07:51 IMPRESSION: Persistent airspace disease left upper lobe. Assessment & Plan - Diagnosis (1) Aspiration pneumonia of left upper lobe Qualifiers: Aspiration pneumonia type: unspecified Qualified Code(s): J69.0 - Pneumonitis due to inhalation of food and vomit Is this a current diagnosis for this admission?: Yes (2) Left upper lobe pneumonia Qualifiers: Pneumonia type: aspiration pneumonia Aspiration pneumonia type: unspecified Qualified Code(s): J69.0 - Pneumonitis due to inhalation of food and vomit (3) Acute kidney injury Is this a current diagnosis for this admission?: Yes (4) Rhabdomyolysis Qualifiers: Rhabdomyolysis type: non-traumatic Qualified Code(s): M62.82 - Rhabdomyolysis Is this a current diagnosis for this admission?: Yes (5) Slurred speech Is this a current diagnosis for this admission?: Yes - Plan Summary Plan Summary: He will continue present antibiotic coverage including cefepime, Levaquin, vancomycin will be added to drug regimen arterial Doppler of the lower extremities will be ordered, the kidney function is improving with hydration patient condition remains critical, is a full code
[2017-02-04] MEDS ORDERED: VANCOMYCIN HCL 0 MG in DEXTROSE 5%-WATER 250 ML IV NR (21:15)
[2017-02-04 22:10] LABS: ALANINE AMINOTRANSFERASE 97 U/L (21-72); ALBUMIN 2.7 g/dL (3.5-5.0); ALKALINE PHOSPHATASE 49 U/L (38-126); ANION GAP 9 (5-19); ASPARTATE AMINO TRANSFERASE 127 U/L (17-59); BILIRUBIN,DIRECT 0.4 mg/dL (0.0-0.4); BILIRUBIN,TOTAL 0.5 mg/dL (0.2-1.3); BLOOD UREA NITROGEN 21 mg/dL (7-20); CALCIUM 8.7 mg/dL (8.4-10.2); CARBON DIOXIDE 16 mmol/L (22-30); CHLORIDE 110 mmol/L (98-107); CREATININE RESULT 1.36 mg/dL (0.52-1.25); GLUCOSE 105 mg/dL (75-110); POTASSIUM 3.1 mmol/L (3.6-5.0); SODIUM 135.1 mmol/L (137-145); TOTAL PROTEIN 5.6 g/dL (6.3-8.2)
[2017-02-04] MEDS: VANCOMYCIN HCL 750 MG in DEXTROSE 5%-WATER 250 ML IV SCH (22:52)
[2017-02-05] MEDS: METRONIDAZOLE 500 MG/NS RTU 100 ML IV SCH ×3 (05:03→21:57)
[2017-02-05] MEDS: NORMAL SALINE 1000 ML 1,000 ML IV PRN (05:05)
[2017-02-05] MEDS: HEPARIN SOD (PORCINE) 5,000 UNIT/ML 1 ML SYRINGE SUBCUT SCH ×3 (05:05→22:48)
[2017-02-05 06:09] LABS: ABSOLUTE BASOPHILS # (AUTO) 0.1 10^3/uL (0.0-0.2); ABSOLUTE EOSINOPHILS # (AUTO) 0.1 10^3/uL (0.0-0.6); ABSOLUTE MONOCYTES (AUTO) 0.6 10^3/uL (0.1-1.4); ABSOLUTE NEUT (AUTO) 4.9 10^3/uL (1.7-8.2); EOSINOPHILS % (AUTO) 1.4 % (0-6); HEMATOCRIT 36.8 % (37.9-51.0); HEMOGLOBIN 13.2 g/dL (13.5-17.0); HGB HCT DIFFERENCE 2.8; LYMPHOCYTES % (AUTO) 15.5 % (13-45); MEAN CORPUSCULAR HEMOGLOBIN 33.8 pg (27.0-33.4); MEAN CORPUSCULAR HGB CONC 35.8 g/dL (32.0-36.0); MEAN CORPUSCULAR VOLUME 94 fl (80-97); MONOCYTES % (AUTO) 9.2 % (3-13); RED CELL DISTRIBUTION WIDTH 15.1 % (11.5-14.0); SEGMENTED NEUTROPHILS % (AUTO) 72.9 % (42-78); WHITE BLOOD COUNT 6.6 10^3/uL (4.0-10.5)
[2017-02-05 06:31] LABS: ALANINE AMINOTRANSFERASE 89 U/L (21-72); ALBUMIN 2.6 g/dL (3.5-5.0); ALKALINE PHOSPHATASE 48 U/L (38-126); ANION GAP 10 (5-19); ASPARTATE AMINO TRANSFERASE 102 U/L (17-59); BILIRUBIN,DIRECT 0.4 mg/dL (0.0-0.4); BILIRUBIN,TOTAL 0.5 mg/dL (0.2-1.3); BLOOD UREA NITROGEN 18 mg/dL (7-20); CALCIUM 8.6 mg/dL (8.4-10.2); CARBON DIOXIDE 16 mmol/L (22-30); CHLORIDE 109 mmol/L (98-107); CREATININE RESULT 1.33 mg/dL (0.52-1.25); GLUCOSE 101 mg/dL (75-110); POTASSIUM 3.2 mmol/L (3.6-5.0); SODIUM 134.9 mmol/L (137-145); TOTAL PROTEIN 5.4 g/dL (6.3-8.2)
[2017-02-05] MEDS: POTASSI CL 20 MEQ/50 ML RIDER 20 MEQ/50 ML RTUPB IV SCH ×3 (08:58→14:41)
[2017-02-05] MEDS: CEFEPIME HCL 1.5 GM in DEXTROSE 5%-WATER 50 ML IV SCH ×2 (12:10→22:43)
[2017-02-05] MEDS: LEVOFLOXACIN 250 MG/D5W RTU 250 MG/50 ML RTUPB IV SCH (13:13)
--- NOTE | 2017-02-05 13:15 | EKG REPORT ---
SEVERITY:- ABNORMAL ECG - TACHYCARDIA ? JUNCTIONAL. PROBABLE INFERIOR INFARCT, AGE INDETERMINATE PROLONGED QT INTERVAL : Confirmed by: Jacobo Macias MD 05-Feb-2017 13:14:59
[2017-02-05] MEDS: VANCOMYCIN HCL 750 MG in DEXTROSE 5%-WATER 250 ML IV SCH ×2 (14:40→22:42)
[2017-02-05 19:07] LABS: ABSOLUTE EOSINOPHILS # (AUTO) 0.2 10^3/uL (0.0-0.6); ABSOLUTE LYMPHOCYTES (AUTO) 1.2 10^3/uL (0.5-4.7); ABSOLUTE MONOCYTES (AUTO) 0.7 10^3/uL (0.1-1.4); ABSOLUTE NEUT (AUTO) 4.5 10^3/uL (1.7-8.2); BASOPHILS % (AUTO) 0.7 % (0-2); EOSINOPHILS % (AUTO) 2.3 % (0-6); HEMATOCRIT 37.4 % (37.9-51.0); HEMOGLOBIN 13.3 g/dL (13.5-17.0); HGB HCT DIFFERENCE 2.5; LYMPHOCYTES % (AUTO) 18.7 % (13-45); MEAN CORPUSCULAR HEMOGLOBIN 33.6 pg (27.0-33.4); MEAN CORPUSCULAR HGB CONC 35.6 g/dL (32.0-36.0); MEAN CORPUSCULAR VOLUME 94 fl (80-97); MONOCYTES % (AUTO) 10.2 % (3-13); RED BLOOD COUNT 3.97 10^6/uL (4.35-5.55); RED CELL DISTRIBUTION WIDTH 14.9 % (11.5-14.0); SEGMENTED NEUTROPHILS % (AUTO) 68.1 % (42-78); WHITE BLOOD COUNT 6.6 10^3/uL (4.0-10.5)
[2017-02-05 19:26] LABS: ALANINE AMINOTRANSFERASE 72 U/L (21-72); ALBUMIN 2.5 g/dL (3.5-5.0); ALKALINE PHOSPHATASE 45 U/L (38-126); ANION GAP 9 (5-19); ASPARTATE AMINO TRANSFERASE 73 U/L (17-59); BILIRUBIN,DIRECT 0.3 mg/dL (0.0-0.4); BILIRUBIN,TOTAL 0.4 mg/dL (0.2-1.3); BLOOD UREA NITROGEN 15 mg/dL (7-20); CALCIUM 8.2 mg/dL (8.4-10.2); CARBON DIOXIDE 17 mmol/L (22-30); CHLORIDE 109 mmol/L (98-107); CREATININE RESULT 1.15 mg/dL (0.52-1.25); GLUCOSE 106 mg/dL (75-110); POTASSIUM 3.3 mmol/L (3.6-5.0); SODIUM 135.1 mmol/L (137-145); TOTAL PROTEIN 5.1 g/dL (6.3-8.2)
--- NOTE | 2017-02-05 19:55 | PDOC PROGRESS REPORT ---
Subjective Progress Note for:: 02/05/17 Subjective:: Patient was seen by the bedside, he was admitted because of sepsis syndrome due to pneumonia, the urine drug screen was positive for cocaine and marijuana. He developed hypokalemia from today's lab work most likely due to transcellular shift of potassium and increase sodium delivery to the distal nephrons the kidney function is improved and now have normal serum creatinine. Physical Exam Vital Signs: Temp Pulse Resp BP Pulse Ox 98.1 F 69 18 148/94 H 100 02/05/17 17:17 02/05/17 17:17 02/05/17 17:17 02/05/17 17:17 02/05/17 17:17 Intake & Output 02/04/17 02/05/17 02/06/17 06:59 06:59 06:59 Intake Total 2910 4580 2531 Output Total 1600 3095 1300 Balance 1310 1485 1231 Weight 89.4 kg 89.5 kg Results Laboratory Results: 02/05/17 18:40 02/05/17 18:40 02/04/17 02/05/17 02/05/17 21:45 05:29 05:29 WBC 6.6 RBC 3.90 L Hgb 13.2 L Hct 36.8 L MCV 94 MCH 33.8 H MCHC 35.8 RDW 15.1 H Plt Count 169 Seg Neutrophils % 72.9 Lymphocytes % 15.5 Monocytes % 9.2 Eosinophils % 1.4 Basophils % 1.0 Absolute Neutrophils 4.9 Absolute Lymphocytes 1.0 Absolute Monocytes 0.6 Absolute Eosinophils 0.1 Absolute Basophils 0.1 Sodium 135.1 L 134.9 L Potassium 3.1 L 3.2 L Chloride 110 H 109 H Carbon Dioxide 16 L 16 L Anion Gap 9 10 BUN 21 H 18 Creatinine 1.36 H 1.33 H Est GFR ( Amer) > 60 > 60 Est GFR (Non-Af Amer) 53 L 55 L Glucose 105 101 Calcium 8.7 8.6 Total Bilirubin 0.5 0.5 AST 127 H 102 H ALT 97 H 89 H Alkaline Phosphatase 49 48 Total Protein 5.6 L 5.4 L Albumin 2.7 L 2.6 L 02/05/17 02/05/17 18:40 18:40 WBC 6.6 RBC 3.97 L Hgb 13.3 L Hct 37.4 L MCV 94 MCH 33.6 H MCHC 35.6 RDW 14.9 H Plt Count 165 Seg Neutrophils % 68.1 Lymphocytes % 18.7 Monocytes % 10.2 Eosinophils % 2.3 Basophils % 0.7 Absolute Neutrophils 4.5 Absolute Lymphocytes 1.2 Absolute Monocytes 0.7 Absolute Eosinophils 0.2 Absolute Basophils 0.0 Sodium 135.1 L Potassium 3.3 L Chloride 109 H Carbon Dioxide 17 L Anion Gap 9 BUN 15 Creatinine 1.15 Est GFR ( Amer) > 60 Est GFR (Non-Af Amer) > 60 Glucose 106 Calcium 8.2 L Total Bilirubin 0.4 AST 73 H ALT 72 Alkaline Phosphatase 45 Total Protein 5.1 L Albumin 2.5 L 02/03/17 02/03/17 02/03/17 09:48 09:48 09:48 Creatine Kinase 2837 H CK-MB (CK-2) 16.00 H Troponin I 0.046 NT-Pro-B Natriuret Pep 184 02/03/17 02/03/17 02/03/17 13:52 13:52 20:46 Creatine Kinase 2747 H 2757 H CK-MB (CK-2) 15.70 H Troponin I 0.046 NT-Pro-B Natriuret Pep 02/03/17 20:46 Creatine Kinase CK-MB (CK-2) 14.50 H Troponin I 0.032 NT-Pro-B Natriuret Pep Impressions: Chest CT 02/03/17 00:00 IMPRESSION: Left upper lobe pneumonia. Head MRI 02/03/17 00:00 IMPRESSION: Minimal chronic white matter disease. 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 No acute findings. EVIDENCE OF ACUTE STROKE: NO. Renal Ultrasound 02/03/17 00:00 IMPRESSION: Mild increased renal parenchymal echogenicity from medical renal disease. No hydronephrosis, cysts, stones, or masses. Head CT 02/03/17 02:14 IMPRESSION: No acute intracranial hemorrhage or acute territorial infarct. Chest X-Ray 02/03/17 07:51 IMPRESSION: Persistent airspace disease left upper lobe. Assessment & Plan - Diagnosis (1) Aspiration pneumonia of left upper lobe Qualifiers: Aspiration pneumonia type: unspecified Qualified Code(s): J69.0 - Pneumonitis due to inhalation of food and vomit Is this a current diagnosis for this admission?: Yes (2) Left upper lobe pneumonia Qualifiers: Pneumonia type: aspiration pneumonia Aspiration pneumonia type: unspecified Qualified Code(s): J69.0 - Pneumonitis due to inhalation of food and vomit (3) Acute kidney injury Is this a current diagnosis for this admission?: Yes (4) Rhabdomyolysis Qualifiers: Rhabdomyolysis type: non-traumatic Qualified Code(s): M62.82 - Rhabdomyolysis Is this a current diagnosis for this admission?: Yes (5) Slurred speech Is this a current diagnosis for this admission?: Yes (6) Polysubstance abuse Is this a current diagnosis for this admission?: Yes (7) Metabolic encephalopathy Is this a current diagnosis for this admission?: Yes (8) Hypokalemia Is this a current diagnosis for this admission?: Yes (9) Sepsis Qualifiers: Sepsis type: sepsis due to unspecified organism Qualified Code(s): A41.9 - Sepsis, unspecified organism Is this a current diagnosis for this admission?: Yes - Plan Summary Plan Summary: Potassium replacement with potassium chloride riders intravenously, he was empirically started on vancomycin yesterday because the blood culture is growing gram-positive cocci in clusters. Patient is showing signs of improvement ,the metabolic encephalopathy is also improving the speech is getting clear he had episode of sinus bradycardia today
[2017-02-05 20:59] LABS: CREATINE KINASE MB 3.38 ng/mL (<4.55)
[2017-02-05 21:00] LABS: TROPONIN I < 0.012 ng/mL
[2017-02-05] MEDS: METOPROLOL SUCCINATE 25 MG TAB.SR.24H PO SCH (22:44)
[2017-02-06 04:27] LABS: ABSOLUTE BASOPHILS # (AUTO) 0.1 10^3/uL (0.0-0.2); ABSOLUTE EOSINOPHILS # (AUTO) 0.2 10^3/uL (0.0-0.6); ABSOLUTE LYMPHOCYTES (AUTO) 1.5 10^3/uL (0.5-4.7); ABSOLUTE MONOCYTES (AUTO) 0.7 10^3/uL (0.1-1.4); ABSOLUTE NEUT (AUTO) 3.8 10^3/uL (1.7-8.2); BASOPHILS % (AUTO) 0.9 % (0-2); EOSINOPHILS % (AUTO) 3.4 % (0-6); HEMATOCRIT 37.9 % (37.9-51.0); HEMOGLOBIN 13.2 g/dL (13.5-17.0); HGB HCT DIFFERENCE 1.7; LYMPHOCYTES % (AUTO) 23.6 % (13-45); MEAN CORPUSCULAR HGB CONC 34.9 g/dL (32.0-36.0); MEAN CORPUSCULAR VOLUME 95 fl (80-97); MONOCYTES % (AUTO) 11.7 % (3-13); RED BLOOD COUNT 4.01 10^6/uL (4.35-5.55); RED CELL DISTRIBUTION WIDTH 14.7 % (11.5-14.0); SEGMENTED NEUTROPHILS % (AUTO) 60.4 % (42-78); WHITE BLOOD COUNT 6.4 10^3/uL (4.0-10.5)
[2017-02-06 04:52] LABS: ALANINE AMINOTRANSFERASE 75 U/L (21-72); ALBUMIN 2.4 g/dL (3.5-5.0); ALKALINE PHOSPHATASE 44 U/L (38-126); ANION GAP 9 (5-19); ASPARTATE AMINO TRANSFERASE 76 U/L (17-59); BILIRUBIN,DIRECT 0.3 mg/dL (0.0-0.4); BILIRUBIN,TOTAL 0.5 mg/dL (0.2-1.3); BLOOD UREA NITROGEN 12 mg/dL (7-20); CALCIUM 8.1 mg/dL (8.4-10.2); CARBON DIOXIDE 17 mmol/L (22-30); CHLORIDE 109 mmol/L (98-107); CREATINE KINASE 420 U/L (55-170); CREATININE RESULT 1.02 mg/dL (0.52-1.25); GLUCOSE 106 mg/dL (75-110); POTASSIUM 3.1 mmol/L (3.6-5.0); SODIUM 134.9 mmol/L (137-145)
[2017-02-06 05:04] LABS: CREATINE KINASE MB 2.99 ng/mL (<4.55)
[2017-02-06 05:09] LABS: TROPONIN I < 0.012 ng/mL
[2017-02-06] MEDS: HEPARIN SOD (PORCINE) 5,000 UNIT/ML 1 ML SYRINGE SUBCUT SCH ×3 (06:21→21:17)
[2017-02-06] MEDS: POTASSI CL 40 MEQ/D5-1/2NS 1L 40 MEQ/1,000 ML RTUINJ IV PRN ×2 (06:22→18:48)
[2017-02-06] MEDS: METOPROLOL SUCCINATE 25 MG TAB.SR.24H PO SCH ×2 (11:46→21:17)
[2017-02-06] MEDS: VANCOMYCIN HCL 750 MG in DEXTROSE 5%-WATER 250 ML IV SCH (11:47)
[2017-02-06] MEDS: LEVOFLOXACIN 250 MG/D5W RTU 250 MG/50 ML RTUPB IV SCH (11:48)
[2017-02-06] MEDS: CEFEPIME HCL 1.5 GM in DEXTROSE 5%-WATER 50 ML IV SCH ×2 (11:57→21:17)
[2017-02-06 12:17] LABS: CREATINE KINASE MB 2.08 ng/mL (<4.55)
[2017-02-06 12:19] LABS: TROPONIN I < 0.012 ng/mL
[2017-02-06] MEDS ORDERED: BISACODYL 5 MG TABEC PO ONE (12:30)
[2017-02-06] MEDS ORDERED: POTASSIUM CHLORIDE 10 MEQ TABLET.SA PO ONE (13:00)
[2017-02-06] MEDS: VANCOMYCIN HCL 1,500 MG in DEXTROSE 5%-WATER 250 ML IV SCH (13:56)
--- NOTE | 2017-02-06 15:12 | PDOC PROGRESS REPORT ---
Subjective Progress Note for:: 02/06/17 Subjective:: He has no new complaints there is no chest pain or shortness of breath. Physical Exam Vital Signs: Temp Pulse Resp BP Pulse Ox 97.9 F 64 16 144/95 H 100 02/06/17 11:44 02/06/17 11:44 02/06/17 11:44 02/06/17 11:44 02/06/17 11:44 Intake & Output 02/05/17 02/06/17 02/07/17 06:59 06:59 06:59 Intake Total 4580 4956 0 Output Total 3095 1700 600 Balance 1485 3256 -600 Weight 89.5 kg 90 kg General appearance: PRESENT: no acute distress Eye exam: PRESENT: PERRLA Respiratory exam: PRESENT: clear to auscultation shiv Cardiovascular exam: PRESENT: +S1, +S2 GI/Abdominal exam: PRESENT: soft Neurological exam: PRESENT: alert, CN II-XII grossly intact Results Laboratory Results: 02/06/17 04:17 02/06/17 04:17 02/05/17 02/05/17 02/06/17 18:40 18:40 04:17 WBC 6.6 RBC 3.97 L Hgb 13.3 L Hct 37.4 L MCV 94 MCH 33.6 H MCHC 35.6 RDW 14.9 H Plt Count 165 Seg Neutrophils % 68.1 Lymphocytes % 18.7 Monocytes % 10.2 Eosinophils % 2.3 Basophils % 0.7 Absolute Neutrophils 4.5 Absolute Lymphocytes 1.2 Absolute Monocytes 0.7 Absolute Eosinophils 0.2 Absolute Basophils 0.0 Sodium 135.1 L 134.9 L Potassium 3.3 L 3.1 L Chloride 109 H 109 H Carbon Dioxide 17 L 17 L Anion Gap 9 9 BUN 15 12 Creatinine 1.15 1.02 Est GFR ( Amer) > 60 > 60 Est GFR (Non-Af Amer) > 60 > 60 Glucose 106 106 Calcium 8.2 L 8.1 L Total Bilirubin 0.4 0.5 AST 73 H 76 H ALT 72 75 H Alkaline Phosphatase 45 44 Total Protein 5.1 L 5.0 L Albumin 2.5 L 2.4 L 02/06/17 04:17 WBC 6.4 RBC 4.01 L Hgb 13.2 L Hct 37.9 MCV 95 MCH 33.0 MCHC 34.9 RDW 14.7 H Plt Count 180 Seg Neutrophils % 60.4 Lymphocytes % 23.6 Monocytes % 11.7 Eosinophils % 3.4 Basophils % 0.9 Absolute Neutrophils 3.8 Absolute Lymphocytes 1.5 Absolute Monocytes 0.7 Absolute Eosinophils 0.2 Absolute Basophils 0.1 Sodium Potassium Chloride Carbon Dioxide Anion Gap BUN Creatinine Est GFR ( Amer) Est GFR (Non-Af Amer) Glucose Calcium Total Bilirubin AST ALT Alkaline Phosphatase Total Protein Albumin 02/03/17 02/03/17 02/03/17 09:48 09:48 09:48 Creatine Kinase 2837 H CK-MB (CK-2) 16.00 H Troponin I 0.046 NT-Pro-B Natriuret Pep 184 02/03/17 02/03/17 02/03/17 13:52 13:52 20:46 Creatine Kinase 2747 H 2757 H CK-MB (CK-2) 15.70 H Troponin I 0.046 NT-Pro-B Natriuret Pep 02/03/17 02/05/17 02/05/17 20:46 20:23 20:23 Creatine Kinase 501 H CK-MB (CK-2) 14.50 H 3.38 Troponin I 0.032 < 0.012 NT-Pro-B Natriuret Pep 02/06/17 02/06/17 02/06/17 04:17 04:17 11:40 Creatine Kinase 420 H 320 H CK-MB (CK-2) 2.99 Troponin I < 0.012 NT-Pro-B Natriuret Pep 02/06/17 11:40 Creatine Kinase CK-MB (CK-2) 2.08 Troponin I < 0.012 NT-Pro-B Natriuret Pep Impressions: Chest CT 02/03/17 00:00 IMPRESSION: Left upper lobe pneumonia. Head MRI 02/03/17 00:00 IMPRESSION: Minimal chronic white matter disease. 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 No acute findings. EVIDENCE OF ACUTE STROKE: NO. Renal Ultrasound 02/03/17 00:00 IMPRESSION: Mild increased renal parenchymal echogenicity from medical renal disease. No hydronephrosis, cysts, stones, or masses. Head CT 02/03/17 02:14 IMPRESSION: No acute intracranial hemorrhage or acute territorial infarct. Chest X-Ray 02/03/17 07:51 IMPRESSION: Persistent airspace disease left upper lobe. Assessment & Plan - Diagnosis (1) Aspiration pneumonia of left upper lobe Qualifiers: Aspiration pneumonia type: unspecified Qualified Code(s): J69.0 - Pneumonitis due to inhalation of food and vomit Is this a current diagnosis for this admission?: Yes (2) Left upper lobe pneumonia Qualifiers: Pneumonia type: aspiration pneumonia Aspiration pneumonia type: unspecified Qualified Code(s): J69.0 - Pneumonitis due to inhalation of food and vomit (3) Acute kidney injury Is this a current diagnosis for this admission?: Yes (4) Rhabdomyolysis Qualifiers: Rhabdomyolysis type: non-traumatic Qualified Code(s): M62.82 - Rhabdomyolysis Is this a current diagnosis for this admission?: Yes (5) Slurred speech Is this a current diagnosis for this admission?: Yes (6) Polysubstance abuse Is this a current diagnosis for this admission?: Yes (7) Metabolic encephalopathy Is this a current diagnosis for this admission?: Yes (8) Hypokalemia Is this a current diagnosis for this admission?: Yes Plan: Change IV fluid to 5% dextrose normal saline with potassium 40 M EQ (9) Sepsis Qualifiers: Sepsis type: sepsis due to unspecified organism Qualified Code(s): A41.9 - Sepsis, unspecified organism Is this a current diagnosis for this admission?: Yes
[2017-02-07] MEDS: VANCOMYCIN HCL 1,500 MG in DEXTROSE 5%-WATER 250 ML IV SCH (00:46)
[2017-02-07] MEDS: HEPARIN SOD (PORCINE) 5,000 UNIT/ML 1 ML SYRINGE SUBCUT SCH ×3 (05:16→21:16)
[2017-02-07 07:14] LABS: ABSOLUTE EOSINOPHILS # (AUTO) 0.2 10^3/uL (0.0-0.6); ABSOLUTE LYMPHOCYTES (AUTO) 1.5 10^3/uL (0.5-4.7); ABSOLUTE MONOCYTES (AUTO) 0.7 10^3/uL (0.1-1.4); ABSOLUTE NEUT (AUTO) 3.6 10^3/uL (1.7-8.2); BASOPHILS % (AUTO) 0.7 % (0-2); HEMATOCRIT 37.6 % (37.9-51.0); HEMOGLOBIN 13.6 g/dL (13.5-17.0); HGB HCT DIFFERENCE 3.2; LYMPHOCYTES % (AUTO) 24.8 % (13-45); MEAN CORPUSCULAR HGB CONC 36.3 g/dL (32.0-36.0); MEAN CORPUSCULAR VOLUME 94 fl (80-97); MONOCYTES % (AUTO) 11.6 % (3-13); RED BLOOD COUNT 4.01 10^6/uL (4.35-5.55); RED CELL DISTRIBUTION WIDTH 15.1 % (11.5-14.0); SEGMENTED NEUTROPHILS % (AUTO) 59.9 % (42-78)
[2017-02-07 07:24] LABS: ALANINE AMINOTRANSFERASE 94 U/L (21-72); ALBUMIN 2.6 g/dL (3.5-5.0); ALKALINE PHOSPHATASE 48 U/L (38-126); ANION GAP 8 (5-19); ASPARTATE AMINO TRANSFERASE 126 U/L (17-59); BILIRUBIN,DIRECT 0.3 mg/dL (0.0-0.4); BILIRUBIN,TOTAL 0.6 mg/dL (0.2-1.3); BLOOD UREA NITROGEN 8 mg/dL (7-20); CALCIUM 8.2 mg/dL (8.4-10.2); CARBON DIOXIDE 22 mmol/L (22-30); CHLORIDE 105 mmol/L (98-107); GLUCOSE 119 mg/dL (75-110); POTASSIUM 3.5 mmol/L (3.6-5.0); SODIUM 134.9 mmol/L (137-145); TOTAL PROTEIN 5.1 g/dL (6.3-8.2)
[2017-02-07] MEDS: POTASSI CL 40 MEQ/D5-1/2NS 1L 40 MEQ/1,000 ML RTUINJ IV PRN ×2 (11:08→23:55)
[2017-02-07] MEDS: METOPROLOL SUCCINATE 25 MG TAB.SR.24H PO SCH ×2 (11:08→21:16)
[2017-02-07] MEDS: CEFEPIME HCL 1.5 GM in DEXTROSE 5%-WATER 50 ML IV SCH ×2 (11:08→21:16)
[2017-02-07] MEDS: LEVOFLOXACIN 250 MG/D5W RTU 250 MG/50 ML RTUPB IV SCH (12:06)
--- NOTE | 2017-02-07 15:15 | PDOC PROGRESS REPORT ---
Subjective Progress Note for:: 02/07/17 Subjective:: The blood culture grew Staphylococcus epi most likely contamination, the vancomycin will be discontinued. Patient continues to improve slowly but surely Physical Exam Vital Signs: Temp Pulse Resp BP Pulse Ox 98.4 F 62 18 158/99 H 100 02/07/17 12:19 02/07/17 12:19 02/07/17 12:19 02/07/17 12:19 02/07/17 12:19 Intake & Output 02/06/17 02/07/17 02/08/17 06:59 06:59 06:59 Intake Total 4956 4187 0 Output Total 1700 1650 400 Balance 3256 2537 -400 Weight 90 kg 90 kg General appearance: PRESENT: mild distress Head exam: PRESENT: atraumatic, normocephalic Eye exam: PRESENT: conjunctiva pink, EOMI, PERRLA Neck exam: PRESENT: full ROM Respiratory exam: PRESENT: rales Cardiovascular exam: PRESENT: RRR, +S1, +S2 Vascular exam: PRESENT: normal capillary refill GI/Abdominal exam: PRESENT: normal bowel sounds, soft Rectal exam: PRESENT: deferred Neurological exam: PRESENT: alert Skin exam: PRESENT: dry, intact, warm Results Laboratory Results: 02/07/17 06:54 02/07/17 06:54 02/07/17 02/07/17 06:54 06:54 WBC 6.0 RBC 4.01 L Hgb 13.6 Hct 37.6 L MCV 94 MCH 34.0 H MCHC 36.3 H RDW 15.1 H Plt Count 148 L Seg Neutrophils % 59.9 Lymphocytes % 24.8 Monocytes % 11.6 Eosinophils % 3.0 Basophils % 0.7 Absolute Neutrophils 3.6 Absolute Lymphocytes 1.5 Absolute Monocytes 0.7 Absolute Eosinophils 0.2 Absolute Basophils 0.0 Sodium 134.9 L Potassium 3.5 L Chloride 105 Carbon Dioxide 22 Anion Gap 8 BUN 8 Creatinine 0.90 Est GFR ( Amer) > 60 Est GFR (Non-Af Amer) > 60 Glucose 119 H Calcium 8.2 L Total Bilirubin 0.6 AST 126 H ALT 94 H Alkaline Phosphatase 48 Total Protein 5.1 L Albumin 2.6 L 02/03/17 02/03/17 02/03/17 09:48 09:48 09:48 Creatine Kinase 2837 H CK-MB (CK-2) 16.00 H Troponin I 0.046 NT-Pro-B Natriuret Pep 184 02/03/17 02/03/17 02/03/17 13:52 13:52 20:46 Creatine Kinase 2747 H 2757 H CK-MB (CK-2) 15.70 H Troponin I 0.046 NT-Pro-B Natriuret Pep 02/03/17 02/05/17 02/05/17 20:46 20:23 20:23 Creatine Kinase 501 H CK-MB (CK-2) 14.50 H 3.38 Troponin I 0.032 < 0.012 NT-Pro-B Natriuret Pep 02/06/17 02/06/17 02/06/17 04:17 04:17 11:40 Creatine Kinase 420 H 320 H CK-MB (CK-2) 2.99 Troponin I < 0.012 NT-Pro-B Natriuret Pep 02/06/17 11:40 Creatine Kinase CK-MB (CK-2) 2.08 Troponin I < 0.012 NT-Pro-B Natriuret Pep Impressions: Chest CT 02/03/17 00:00 IMPRESSION: Left upper lobe pneumonia. Head MRI 02/03/17 00:00 IMPRESSION: Minimal chronic white matter disease. 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 No acute findings. EVIDENCE OF ACUTE STROKE: NO. Renal Ultrasound 02/03/17 00:00 IMPRESSION: Mild increased renal parenchymal echogenicity from medical renal disease. No hydronephrosis, cysts, stones, or masses. Head CT 02/03/17 02:14 IMPRESSION: No acute intracranial hemorrhage or acute territorial infarct. Chest X-Ray 02/03/17 07:51 IMPRESSION: Persistent airspace disease left upper lobe. Assessment & Plan - Diagnosis (1) Aspiration pneumonia of left upper lobe Qualifiers: Aspiration pneumonia type: unspecified Qualified Code(s): J69.0 - Pneumonitis due to inhalation of food and vomit Is this a current diagnosis for this admission?: Yes Plan: Patient will continue IV antibiotic, the blood culture grew Staphylococcus epidermidis suggesting that it is contamination, vancomycin will be discontinued (2) Left upper lobe pneumonia Qualifiers: Pneumonia type: aspiration pneumonia Aspiration pneumonia type: unspecified Qualified Code(s): J69.0 - Pneumonitis due to inhalation of food and vomit Is this a current diagnosis for this admission?: Yes (3) Acute kidney injury Is this a current diagnosis for this admission?: Yes Plan: The acute kidney injury is due to multiple etiology including rhabdomyolysis, ATN, cocaine related. The kidney function is normalized (4) Rhabdomyolysis Qualifiers: Rhabdomyolysis type: non-traumatic Qualified Code(s): M62.82 - Rhabdomyolysis Is this a current diagnosis for this admission?: Yes Plan: The urine showed severely elevated myoglobin suggesting that he had rhabdomyolysis probably from cocaine induced (5) Slurred speech Is this a current diagnosis for this admission?: Yes (6) Polysubstance abuse Is this a current diagnosis for this admission?: Yes (7) Metabolic encephalopathy Is this a current diagnosis for this admission?: Yes (8) Hypokalemia Is this a current diagnosis for this admission?: Yes Plan: Patient presently on normal saline with 5% dextrose and 40 M EQ potassium chloride (9) Sepsis Qualifiers: Sepsis type: sepsis due to unspecified organism Qualified Code(s): A41.9 - Sepsis, unspecified organism Is this a current diagnosis for this admission?: Yes
[2017-02-08] MEDS ORDERED: AMLODIPINE BESYLATE 5 MG TABLET PO ONE (00:30)
[2017-02-08] MEDS: HEPARIN SOD (PORCINE) 5,000 UNIT/ML 1 ML SYRINGE SUBCUT SCH ×3 (05:28→21:50)
[2017-02-08] MEDS: LEVOFLOXACIN 250 MG/D5W RTU 250 MG/50 ML RTUPB IV SCH (09:36)
[2017-02-08] MEDS: AMLODIPINE BESYLATE 5 MG TABLET PO SCH (09:36)
[2017-02-08] MEDS: CEFEPIME HCL 1.5 GM in DEXTROSE 5%-WATER 50 ML IV SCH ×2 (09:36→21:50)
[2017-02-08 09:37] LABS: ABSOLUTE EOSINOPHILS # (AUTO) 0.2 10^3/uL (0.0-0.6); ABSOLUTE MONOCYTES (AUTO) 0.6 10^3/uL (0.1-1.4); ABSOLUTE NEUT (AUTO) 5.7 10^3/uL (1.7-8.2); BASOPHILS % (AUTO) 0.6 % (0-2); EOSINOPHILS % (AUTO) 2.5 % (0-6); HEMATOCRIT 37.9 % (37.9-51.0); HEMOGLOBIN 13.3 g/dL (13.5-17.0); LYMPHOCYTES % (AUTO) 23.4 % (13-45); MEAN CORPUSCULAR HEMOGLOBIN 33.1 pg (27.0-33.4); MEAN CORPUSCULAR VOLUME 95 fl (80-97); MONOCYTES % (AUTO) 7.3 % (3-13); RED BLOOD COUNT 4.01 10^6/uL (4.35-5.55); RED CELL DISTRIBUTION WIDTH 14.6 % (11.5-14.0); SEGMENTED NEUTROPHILS % (AUTO) 66.2 % (42-78); WHITE BLOOD COUNT 8.5 10^3/uL (4.0-10.5)
[2017-02-08] MEDS: METOPROLOL SUCCINATE 25 MG TAB.SR.24H PO SCH ×2 (09:39→21:50)
[2017-02-08 09:51] LABS: ALANINE AMINOTRANSFERASE 106 U/L (21-72); ALBUMIN 2.7 g/dL (3.5-5.0); ALKALINE PHOSPHATASE 56 U/L (38-126); ANION GAP 9 (5-19); ASPARTATE AMINO TRANSFERASE 116 U/L (17-59); BILIRUBIN,DIRECT 0.3 mg/dL (0.0-0.4); BILIRUBIN,TOTAL 0.6 mg/dL (0.2-1.3); BLOOD UREA NITROGEN 7 mg/dL (7-20); CALCIUM 8.3 mg/dL (8.4-10.2); CARBON DIOXIDE 24 mmol/L (22-30); CHLORIDE 103 mmol/L (98-107); GLUCOSE 123 mg/dL (75-110); POTASSIUM 3.3 mmol/L (3.6-5.0); SODIUM 135.5 mmol/L (137-145); TOTAL PROTEIN 5.2 g/dL (6.3-8.2)
[2017-02-08] MEDS ORDERED: LEVOFLOXACIN 250 MG TABLET PO ONE (14:00)
[2017-02-08] MEDS: POTASSI CL 40 MEQ/D5-1/2NS 1L 40 MEQ/1,000 ML RTUINJ IV PRN (14:47)
[2017-02-08] MEDS ORDERED: POTASSIUM CHLORIDE 10 MEQ TABLET.SA PO ONE (20:19)
--- NOTE | 2017-02-08 20:27 | PDOC PROGRESS REPORT ---
Subjective Progress Note for:: 02/08/17 Subjective:: Patient was seen by the bedside, he complained of hiccough Physical Exam Vital Signs: Temp Pulse Resp BP Pulse Ox 97.7 F 76 20 139/100 H 100 02/08/17 19:56 02/08/17 19:56 02/08/17 19:56 02/08/17 19:56 02/08/17 19:56 Intake & Output 02/07/17 02/08/17 02/09/17 06:59 06:59 06:59 Intake Total 4187 2274 2382 Output Total 1650 1200 1300 Balance 2537 1074 1082 Weight 90 kg 90 kg General appearance: PRESENT: no acute distress Eye exam: PRESENT: PERRLA Respiratory exam: PRESENT: clear to auscultation shiv Cardiovascular exam: PRESENT: +S1, +S2 GI/Abdominal exam: PRESENT: soft Results Laboratory Results: 02/08/17 09:05 02/08/17 09:05 02/08/17 02/08/17 09:05 09:05 WBC 8.5 RBC 4.01 L Hgb 13.3 L Hct 37.9 MCV 95 MCH 33.1 MCHC 35.0 RDW 14.6 H Plt Count 249 Seg Neutrophils % 66.2 Lymphocytes % 23.4 Monocytes % 7.3 Eosinophils % 2.5 Basophils % 0.6 Absolute Neutrophils 5.7 Absolute Lymphocytes 2.0 Absolute Monocytes 0.6 Absolute Eosinophils 0.2 Absolute Basophils 0.0 Sodium 135.5 L Potassium 3.3 L Chloride 103 Carbon Dioxide 24 Anion Gap 9 BUN 7 Creatinine 0.90 Est GFR ( Amer) > 60 Est GFR (Non-Af Amer) > 60 Glucose 123 H Calcium 8.3 L Total Bilirubin 0.6 AST 116 H ALT 106 H Alkaline Phosphatase 56 Total Protein 5.2 L Albumin 2.7 L 02/03/17 02/03/17 02/03/17 09:48 09:48 09:48 Creatine Kinase 2837 H CK-MB (CK-2) 16.00 H Troponin I 0.046 NT-Pro-B Natriuret Pep 184 02/03/17 02/03/17 02/03/17 13:52 13:52 20:46 Creatine Kinase 2747 H 2757 H CK-MB (CK-2) 15.70 H Troponin I 0.046 NT-Pro-B Natriuret Pep 02/03/17 02/05/17 02/05/17 20:46 20:23 20:23 Creatine Kinase 501 H CK-MB (CK-2) 14.50 H 3.38 Troponin I 0.032 < 0.012 NT-Pro-B Natriuret Pep 02/06/17 02/06/17 02/06/17 04:17 04:17 11:40 Creatine Kinase 420 H 320 H CK-MB (CK-2) 2.99 Troponin I < 0.012 NT-Pro-B Natriuret Pep 02/06/17 11:40 Creatine Kinase CK-MB (CK-2) 2.08 Troponin I < 0.012 NT-Pro-B Natriuret Pep Impressions: Chest CT 02/03/17 00:00 IMPRESSION: Left upper lobe pneumonia. Head MRI 02/03/17 00:00 IMPRESSION: Minimal chronic white matter disease. 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 No acute findings. EVIDENCE OF ACUTE STROKE: NO. Renal Ultrasound 02/03/17 00:00 IMPRESSION: Mild increased renal parenchymal echogenicity from medical renal disease. No hydronephrosis, cysts, stones, or masses. Head CT 02/03/17 02:14 IMPRESSION: No acute intracranial hemorrhage or acute territorial infarct. Chest X-Ray 02/03/17 07:51 IMPRESSION: Persistent airspace disease left upper lobe. Assessment & Plan - Diagnosis (1) Aspiration pneumonia of left upper lobe Qualifiers: Aspiration pneumonia type: unspecified Qualified Code(s): J69.0 - Pneumonitis due to inhalation of food and vomit Is this a current diagnosis for this admission?: Yes (2) Left upper lobe pneumonia Qualifiers: Pneumonia type: aspiration pneumonia Aspiration pneumonia type: unspecified Qualified Code(s): J69.0 - Pneumonitis due to inhalation of food and vomit Is this a current diagnosis for this admission?: Yes (3) Acute kidney injury Is this a current diagnosis for this admission?: Yes (4) Rhabdomyolysis Qualifiers: Rhabdomyolysis type: non-traumatic Qualified Code(s): M62.82 - Rhabdomyolysis Is this a current diagnosis for this admission?: Yes (5) Slurred speech Is this a current diagnosis for this admission?: Yes (6) Polysubstance abuse Is this a current diagnosis for this admission?: Yes (7) Metabolic encephalopathy Is this a current diagnosis for this admission?: Yes (8) Hypokalemia Is this a current diagnosis for this admission?: Yes (9) Sepsis Qualifiers: Sepsis type: sepsis due to unspecified organism Qualified Code(s): A41.9 - Sepsis, unspecified organism Is this a current diagnosis for this admission?: Yes Plan: Continue treatment on present regimen
[2017-02-09] MEDS ORDERED: ONDANSETRON HCL INJ/PF 4 MG/2 ML SDV IV PRN (01:06)
[2017-02-09] MEDS: POTASSI CL 40 MEQ/D5-1/2NS 1L 40 MEQ/1,000 ML RTUINJ IV PRN ×2 (03:29→14:41)
[2017-02-09] MEDS: HEPARIN SOD (PORCINE) 5,000 UNIT/ML 1 ML SYRINGE SUBCUT SCH ×3 (05:30→23:12)
[2017-02-09] MEDS: CEFEPIME HCL 1.5 GM in DEXTROSE 5%-WATER 50 ML IV SCH ×2 (10:02→23:10)
[2017-02-09] MEDS: LEVOFLOXACIN 500 MG TABLET PO SCH (10:03)
[2017-02-09] MEDS: METOPROLOL SUCCINATE 25 MG TAB.SR.24H PO SCH ×2 (10:03→23:11)
[2017-02-09] MEDS: AMLODIPINE BESYLATE 5 MG TABLET PO SCH (10:03)
[2017-02-09 18:24] LABS: ABSOLUTE BASOPHILS # (AUTO) 0.1 10^3/uL (0.0-0.2); ABSOLUTE EOSINOPHILS # (AUTO) 0.2 10^3/uL (0.0-0.6); ABSOLUTE LYMPHOCYTES (AUTO) 2.1 10^3/uL (0.5-4.7); ABSOLUTE MONOCYTES (AUTO) 0.8 10^3/uL (0.1-1.4); ABSOLUTE NEUT (AUTO) 7.3 10^3/uL (1.7-8.2); BASOPHILS % (AUTO) 0.5 % (0-2); EOSINOPHILS % (AUTO) 1.9 % (0-6); HEMATOCRIT 37.7 % (37.9-51.0); HGB HCT DIFFERENCE 1.3; LYMPHOCYTES % (AUTO) 19.7 % (13-45); MEAN CORPUSCULAR HEMOGLOBIN 32.9 pg (27.0-33.4); MEAN CORPUSCULAR HGB CONC 34.4 g/dL (32.0-36.0); MEAN CORPUSCULAR VOLUME 96 fl (80-97); MONOCYTES % (AUTO) 7.7 % (3-13); RED BLOOD COUNT 3.94 10^6/uL (4.35-5.55); RED CELL DISTRIBUTION WIDTH 15.2 % (11.5-14.0); SEGMENTED NEUTROPHILS % (AUTO) 70.2 % (42-78); WHITE BLOOD COUNT 10.4 10^3/uL (4.0-10.5)
[2017-02-09 18:45] LABS: ALANINE AMINOTRANSFERASE 82 U/L (21-72); ALBUMIN 2.7 g/dL (3.5-5.0); ALKALINE PHOSPHATASE 59 U/L (38-126); ANION GAP 6 (5-19); ASPARTATE AMINO TRANSFERASE 56 U/L (17-59); BILIRUBIN,DIRECT 0.3 mg/dL (0.0-0.4); BILIRUBIN,TOTAL 0.5 mg/dL (0.2-1.3); BLOOD UREA NITROGEN 7 mg/dL (7-20); CALCIUM 8.7 mg/dL (8.4-10.2); CARBON DIOXIDE 26 mmol/L (22-30); CHLORIDE 103 mmol/L (98-107); CREATININE RESULT 0.95 mg/dL (0.52-1.25); GLUCOSE 116 mg/dL (75-110); POTASSIUM 3.9 mmol/L (3.6-5.0); SODIUM 135.3 mmol/L (137-145); TOTAL PROTEIN 5.2 g/dL (6.3-8.2)
[2017-02-10] MEDS: POTASSI CL 40 MEQ/D5-1/2NS 1L 40 MEQ/1,000 ML RTUINJ IV PRN ×3 (01:14→23:04)
[2017-02-10] MEDS: HEPARIN SOD (PORCINE) 5,000 UNIT/ML 1 ML SYRINGE SUBCUT SCH ×3 (05:33→21:10)
[2017-02-10] MEDS: CEFEPIME HCL 1.5 GM in DEXTROSE 5%-WATER 50 ML IV SCH (11:35)
[2017-02-10] MEDS: LEVOFLOXACIN 500 MG TABLET PO SCH (11:35)
[2017-02-10] MEDS: AMLODIPINE BESYLATE 5 MG TABLET PO SCH (11:36)
[2017-02-10] MEDS: METOPROLOL SUCCINATE 25 MG TAB.SR.24H PO SCH ×2 (11:36→21:05)
--- NOTE | 2017-02-10 14:14 | PDOC PROGRESS REPORT ---
Subjective Progress Note for:: 02/09/17 Subjective:: Patient was seen by the bedside, he was admitted for the management of acute kidney injury, severe pneumonia. He seems to be responding to treatment is more awake today compared to when he was admitted. There is no new complaint today, he would need physical therapy Physical Exam Vital Signs: Temp Pulse Resp BP Pulse Ox 97.8 F 76 19 147/93 H 100 02/10/17 11:32 02/10/17 11:32 02/10/17 11:32 02/10/17 11:32 02/10/17 11:32 Intake & Output 02/09/17 02/10/17 02/11/17 06:59 06:59 06:59 Intake Total 3772 3090 50 Output Total 2000 3000 1200 Balance 1772 90 -1150 Weight 89 kg 90 kg General appearance: PRESENT: no acute distress Eye exam: PRESENT: PERRLA Respiratory exam: PRESENT: clear to auscultation shiv Cardiovascular exam: PRESENT: +S1, +S2 GI/Abdominal exam: PRESENT: soft Neurological exam: PRESENT: alert Results Laboratory Results: 02/09/17 18:00 02/09/17 18:00 02/09/17 02/09/17 18:00 18:00 WBC 10.4 RBC 3.94 L Hgb 13.0 L Hct 37.7 L MCV 96 MCH 32.9 MCHC 34.4 RDW 15.2 H Plt Count 281 Seg Neutrophils % 70.2 Lymphocytes % 19.7 Monocytes % 7.7 Eosinophils % 1.9 Basophils % 0.5 Absolute Neutrophils 7.3 Absolute Lymphocytes 2.1 Absolute Monocytes 0.8 Absolute Eosinophils 0.2 Absolute Basophils 0.1 Sodium 135.3 L Potassium 3.9 Chloride 103 Carbon Dioxide 26 Anion Gap 6 BUN 7 Creatinine 0.95 Est GFR ( Amer) > 60 Est GFR (Non-Af Amer) > 60 Glucose 116 H Calcium 8.7 Total Bilirubin 0.5 AST 56 ALT 82 H Alkaline Phosphatase 59 Total Protein 5.2 L Albumin 2.7 L 02/03/17 02/03/17 02/03/17 09:48 09:48 09:48 Creatine Kinase 2837 H CK-MB (CK-2) 16.00 H Troponin I 0.046 NT-Pro-B Natriuret Pep 184 02/03/17 02/03/17 02/03/17 13:52 13:52 20:46 Creatine Kinase 2747 H 2757 H CK-MB (CK-2) 15.70 H Troponin I 0.046 NT-Pro-B Natriuret Pep 02/03/17 02/05/17 02/05/17 20:46 20:23 20:23 Creatine Kinase 501 H CK-MB (CK-2) 14.50 H 3.38 Troponin I 0.032 < 0.012 NT-Pro-B Natriuret Pep 02/06/17 02/06/17 02/06/17 04:17 04:17 11:40 Creatine Kinase 420 H 320 H CK-MB (CK-2) 2.99 Troponin I < 0.012 NT-Pro-B Natriuret Pep 02/06/17 11:40 Creatine Kinase CK-MB (CK-2) 2.08 Troponin I < 0.012 NT-Pro-B Natriuret Pep Impressions: Chest CT 02/03/17 00:00 IMPRESSION: Left upper lobe pneumonia. Head MRI 02/03/17 00:00 IMPRESSION: Minimal chronic white matter disease. 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 No acute findings. EVIDENCE OF ACUTE STROKE: NO. Renal Ultrasound 02/03/17 00:00 IMPRESSION: Mild increased renal parenchymal echogenicity from medical renal disease. No hydronephrosis, cysts, stones, or masses. Head CT 02/03/17 02:14 IMPRESSION: No acute intracranial hemorrhage or acute territorial infarct. Chest X-Ray 02/03/17 07:51 IMPRESSION: Persistent airspace disease left upper lobe. Assessment & Plan - Diagnosis (1) Aspiration pneumonia of left upper lobe Qualifiers: Aspiration pneumonia type: unspecified Qualified Code(s): J69.0 - Pneumonitis due to inhalation of food and vomit Is this a current diagnosis for this admission?: Yes (2) Left upper lobe pneumonia Qualifiers: Pneumonia type: aspiration pneumonia Aspiration pneumonia type: unspecified Qualified Code(s): J69.0 - Pneumonitis due to inhalation of food and vomit Is this a current diagnosis for this admission?: Yes (3) Acute kidney injury Is this a current diagnosis for this admission?: Yes (4) Rhabdomyolysis Qualifiers: Rhabdomyolysis type: non-traumatic Qualified Code(s): M62.82 - Rhabdomyolysis Is this a current diagnosis for this admission?: Yes (5) Slurred speech Is this a current diagnosis for this admission?: Yes (6) Polysubstance abuse Is this a current diagnosis for this admission?: Yes (7) Metabolic encephalopathy Is this a current diagnosis for this admission?: Yes (8) Hypokalemia Is this a current diagnosis for this admission?: Yes (9) Sepsis Qualifiers: Sepsis type: sepsis due to unspecified organism Qualified Code(s): A41.9 - Sepsis, unspecified organism Is this a current diagnosis for this admission?: Yes Plan: Continue treatment on present regimen
--- NOTE | 2017-02-10 18:16 | RADIOLOGY REPORT (SQ) ---
EXAM DESCRIPTION: CHEST SINGLE VIEW COMPLETED DATE/TIME: 02/10/2017 6:04 pm REASON FOR STUDY: PNEUMONIA COMPARISON: 02/03/2017 EXAM PARAMETERS: NUMBER OF VIEWS: One view. TECHNIQUE: Single frontal radiographic view of the chest acquired. RADIATION DOSE: NA LIMITATIONS: None. FINDINGS: LUNGS AND PLEURA: There is persistent left upper lobe infiltrates slightly worse than note d on prior chest film. Lung bailon are otherwise clear. MEDIASTINUM AND HILAR STRUCTURES: No masses. Contour normal. HEART AND VASCULAR STRUCTURES: Heart normal in size. Normal vasculature. BONES: No acute findings. HARDWARE: None in the chest. OTHER: No other significant finding. IMPRESSION: There is been slight increase in left upper lobe infiltrate since prior chest film. TECHNICAL DOCUMENTATION: JOB ID: [id number]
[2017-02-10 18:43] LABS: ABSOLUTE BASOPHILS # (AUTO) 0.1 10^3/uL (0.0-0.2); ABSOLUTE EOSINOPHILS # (AUTO) 0.1 10^3/uL (0.0-0.6); ABSOLUTE LYMPHOCYTES (AUTO) 2.5 10^3/uL (0.5-4.7); ABSOLUTE MONOCYTES (AUTO) 0.8 10^3/uL (0.1-1.4); ABSOLUTE NEUT (AUTO) 8.6 10^3/uL (1.7-8.2); BASOPHILS % (AUTO) 0.5 % (0-2); EOSINOPHILS % (AUTO) 1.1 % (0-6); HEMATOCRIT 36.6 % (37.9-51.0); HEMOGLOBIN 12.8 g/dL (13.5-17.0); HGB HCT DIFFERENCE 1.8; LYMPHOCYTES % (AUTO) 20.7 % (13-45); MEAN CORPUSCULAR HEMOGLOBIN 32.9 pg (27.0-33.4); MEAN CORPUSCULAR HGB CONC 35.1 g/dL (32.0-36.0); MEAN CORPUSCULAR VOLUME 94 fl (80-97); MONOCYTES % (AUTO) 6.4 % (3-13); RED CELL DISTRIBUTION WIDTH 15.3 % (11.5-14.0); SEGMENTED NEUTROPHILS % (AUTO) 71.3 % (42-78); WHITE BLOOD COUNT 12.1 10^3/uL (4.0-10.5)
[2017-02-10 19:02] LABS: ALANINE AMINOTRANSFERASE 72 U/L (21-72); ALKALINE PHOSPHATASE 61 U/L (38-126); ANION GAP 9 (5-19); ASPARTATE AMINO TRANSFERASE 41 U/L (17-59); BILIRUBIN,DIRECT 0.3 mg/dL (0.0-0.4); BILIRUBIN,TOTAL 0.4 mg/dL (0.2-1.3); BLOOD UREA NITROGEN 7 mg/dL (7-20); CARBON DIOXIDE 22 mmol/L (22-30); CHLORIDE 104 mmol/L (98-107); CREATININE RESULT 0.91 mg/dL (0.52-1.25); GLUCOSE 124 mg/dL (75-110); POTASSIUM 4.1 mmol/L (3.6-5.0); SODIUM 134.7 mmol/L (137-145); TOTAL PROTEIN 5.7 g/dL (6.3-8.2)
--- NOTE | 2017-02-10 19:22 | PDOC PROGRESS REPORT ---
Subjective Progress Note for:: 02/10/17 Subjective:: Patient was seen by the bedside clinically patient is improving, the chest x- ray that was done today suggest increase in the right lower lobe infiltrate, the hemogram showed increased WBC of 12,000. Patient with continue IV antibiotic, the urinary catheter will be discontinued so he can ambulate and get out of bed to chair Physical Exam Vital Signs: Temp Pulse Resp BP Pulse Ox 97.5 F 81 19 130/78 H 98 02/10/17 15:20 02/10/17 15:20 02/10/17 15:20 02/10/17 15:20 02/10/17 15:20 Intake & Output 02/09/17 02/10/17 02/11/17 06:59 06:59 06:59 Intake Total 3772 3090 2262 Output Total 2000 3000 1600 Balance 1772 90 662 Weight 89 kg 90 kg General appearance: PRESENT: no acute distress, well-developed, well-nourished Head exam: PRESENT: atraumatic, normocephalic Eye exam: PRESENT: PERRLA Mouth exam: PRESENT: moist Neck exam: PRESENT: full ROM Respiratory exam: PRESENT: clear to auscultation shiv Cardiovascular exam: PRESENT: RRR, +S1, +S2 GI/Abdominal exam: PRESENT: normal bowel sounds, soft Rectal exam: PRESENT: deferred Neurological exam: PRESENT: alert, awake, oriented to person, oriented to place , oriented to time, oriented to situation, CN II-XII grossly intact Psychiatric exam: PRESENT: appropriate affect, normal mood Skin exam: PRESENT: dry, intact, warm. ABSENT: cyanosis, rash Results Laboratory Results: 02/10/17 18:35 02/10/17 18:35 02/10/17 02/10/17 18:35 18:35 WBC 12.1 H RBC 3.90 L Hgb 12.8 L Hct 36.6 L MCV 94 MCH 32.9 MCHC 35.1 RDW 15.3 H Plt Count 338 Seg Neutrophils % 71.3 Lymphocytes % 20.7 Monocytes % 6.4 Eosinophils % 1.1 Basophils % 0.5 Absolute Neutrophils 8.6 H Absolute Lymphocytes 2.5 Absolute Monocytes 0.8 Absolute Eosinophils 0.1 Absolute Basophils 0.1 Sodium 134.7 L Potassium 4.1 Chloride 104 Carbon Dioxide 22 Anion Gap 9 BUN 7 Creatinine 0.91 Est GFR ( Amer) > 60 Est GFR (Non-Af Amer) > 60 Glucose 124 H Calcium 9.0 Total Bilirubin 0.4 AST 41 ALT 72 Alkaline Phosphatase 61 Total Protein 5.7 L Albumin 3.0 L 02/03/17 02/03/17 02/03/17 09:48 09:48 09:48 Creatine Kinase 2837 H CK-MB (CK-2) 16.00 H Troponin I 0.046 NT-Pro-B Natriuret Pep 184 02/03/17 02/03/17 02/03/17 13:52 13:52 20:46 Creatine Kinase 2747 H 2757 H CK-MB (CK-2) 15.70 H Troponin I 0.046 NT-Pro-B Natriuret Pep 02/03/17 02/05/17 02/05/17 20:46 20:23 20:23 Creatine Kinase 501 H CK-MB (CK-2) 14.50 H 3.38 Troponin I 0.032 < 0.012 NT-Pro-B Natriuret Pep 02/06/17 02/06/17 02/06/17 04:17 04:17 11:40 Creatine Kinase 420 H 320 H CK-MB (CK-2) 2.99 Troponin I < 0.012 NT-Pro-B Natriuret Pep 02/06/17 11:40 Creatine Kinase CK-MB (CK-2) 2.08 Troponin I < 0.012 NT-Pro-B Natriuret Pep Impressions: Chest CT 02/03/17 00:00 IMPRESSION: Left upper lobe pneumonia. Head MRI 02/03/17 00:00 IMPRESSION: Minimal chronic white matter disease. 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 No acute findings. EVIDENCE OF ACUTE STROKE: NO. Renal Ultrasound 02/03/17 00:00 IMPRESSION: Mild increased renal parenchymal echogenicity from medical renal disease. No hydronephrosis, cysts, stones, or masses. Head CT 02/03/17 02:14 IMPRESSION: No acute intracranial hemorrhage or acute territorial infarct. Chest X-Ray 02/10/17 00:00 IMPRESSION: There is been slight increase in left upper lobe infiltrate since prior chest film. Assessment & Plan - Diagnosis (1) Aspiration pneumonia of left upper lobe Qualifiers: Aspiration pneumonia type: unspecified Qualified Code(s): J69.0 - Pneumonitis due to inhalation of food and vomit Is this a current diagnosis for this admission?: Yes (2) Left upper lobe pneumonia Qualifiers: Pneumonia type: aspiration pneumonia Aspiration pneumonia type: unspecified Qualified Code(s): J69.0 - Pneumonitis due to inhalation of food and vomit Is this a current diagnosis for this admission?: Yes (3) Acute kidney injury Is this a current diagnosis for this admission?: Yes (4) Rhabdomyolysis Qualifiers: Rhabdomyolysis type: non-traumatic Qualified Code(s): M62.82 - Rhabdomyolysis Is this a current diagnosis for this admission?: Yes (5) Slurred speech Is this a current diagnosis for this admission?: Yes (6) Polysubstance abuse Is this a current diagnosis for this admission?: Yes (7) Metabolic encephalopathy Is this a current diagnosis for this admission?: Yes (8) Hypokalemia Is this a current diagnosis for this admission?: Yes (9) Sepsis Qualifiers: Sepsis type: sepsis due to unspecified organism Qualified Code(s): A41.9 - Sepsis, unspecified organism Is this a current diagnosis for this admission?: Yes - Plan Summary Plan Summary: Continue IV antibiotic
[2017-02-10] MEDS: CEFEPIME 2 GM/D5W RTU 2 GM/50 ML RTUPB IV SCH (21:42)
[2017-02-10] MEDS ORDERED: CEFEPIME HCL 1.5 GM in DEXTROSE 5%-WATER 50 ML IV SCH (22:00)
[2017-02-11] MEDS: HEPARIN SOD (PORCINE) 5,000 UNIT/ML 1 ML SYRINGE SUBCUT SCH ×3 (05:59→22:31)
[2017-02-11] MEDS: METOPROLOL SUCCINATE 25 MG TAB.SR.24H PO SCH ×2 (09:05→22:29)
[2017-02-11] MEDS: AMLODIPINE BESYLATE 5 MG TABLET PO SCH (09:07)
[2017-02-11] MEDS: LEVOFLOXACIN 500 MG TABLET PO SCH (09:07)
[2017-02-11] MEDS: CEFEPIME 2 GM/D5W RTU 2 GM/50 ML RTUPB IV SCH ×2 (09:07→22:31)
[2017-02-11] MEDS: POTASSI CL 40 MEQ/D5-1/2NS 1L 40 MEQ/1,000 ML RTUINJ IV PRN ×2 (09:07→19:28)
--- NOTE | 2017-02-11 20:26 | PDOC PROGRESS REPORT ---
Subjective Progress Note for:: 02/11/17 Subjective:: Patient was seen by the bedside, he continues to improve clinically, chest x- ray showed increasing infiltrate Physical Exam Vital Signs: Temp Pulse Resp BP Pulse Ox 97.8 F 87 20 137/97 H 96 02/11/17 19:34 02/11/17 19:34 02/11/17 19:34 02/11/17 19:34 02/11/17 19:34 Intake & Output 02/10/17 02/11/17 02/12/17 06:59 06:59 06:59 Intake Total 3090 4012 1477 Output Total 3000 3400 2277 Balance 90 612 -800 Weight 90 kg 90 kg General appearance: PRESENT: no acute distress Eye exam: PRESENT: PERRLA Respiratory exam: PRESENT: clear to auscultation shiv Cardiovascular exam: PRESENT: +S1, +S2 GI/Abdominal exam: PRESENT: soft Neurological exam: PRESENT: alert Results Laboratory Results: 02/10/17 18:35 02/10/17 18:35 02/03/17 02/03/17 02/03/17 09:48 09:48 09:48 Creatine Kinase 2837 H CK-MB (CK-2) 16.00 H Troponin I 0.046 NT-Pro-B Natriuret Pep 184 02/03/17 02/03/17 02/03/17 13:52 13:52 20:46 Creatine Kinase 2747 H 2757 H CK-MB (CK-2) 15.70 H Troponin I 0.046 NT-Pro-B Natriuret Pep 02/03/17 02/05/17 02/05/17 20:46 20:23 20:23 Creatine Kinase 501 H CK-MB (CK-2) 14.50 H 3.38 Troponin I 0.032 < 0.012 NT-Pro-B Natriuret Pep 02/06/17 02/06/17 02/06/17 04:17 04:17 11:40 Creatine Kinase 420 H 320 H CK-MB (CK-2) 2.99 Troponin I < 0.012 NT-Pro-B Natriuret Pep 02/06/17 11:40 Creatine Kinase CK-MB (CK-2) 2.08 Troponin I < 0.012 NT-Pro-B Natriuret Pep Impressions: Chest CT 02/03/17 00:00 IMPRESSION: Left upper lobe pneumonia. Head MRI 02/03/17 00:00 IMPRESSION: Minimal chronic white matter disease. 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 No acute findings. EVIDENCE OF ACUTE STROKE: NO. Renal Ultrasound 02/03/17 00:00 IMPRESSION: Mild increased renal parenchymal echogenicity from medical renal disease. No hydronephrosis, cysts, stones, or masses. Head CT 02/03/17 02:14 IMPRESSION: No acute intracranial hemorrhage or acute territorial infarct. Chest X-Ray 02/10/17 00:00 IMPRESSION: There is been slight increase in left upper lobe infiltrate since prior chest film. Assessment & Plan - Diagnosis (1) Aspiration pneumonia of left upper lobe Qualifiers: Aspiration pneumonia type: unspecified Qualified Code(s): J69.0 - Pneumonitis due to inhalation of food and vomit Is this a current diagnosis for this admission?: Yes (2) Left upper lobe pneumonia Qualifiers: Pneumonia type: aspiration pneumonia Aspiration pneumonia type: unspecified Qualified Code(s): J69.0 - Pneumonitis due to inhalation of food and vomit Is this a current diagnosis for this admission?: Yes (3) Acute kidney injury Is this a current diagnosis for this admission?: Yes (4) Rhabdomyolysis Qualifiers: Rhabdomyolysis type: non-traumatic Qualified Code(s): M62.82 - Rhabdomyolysis Is this a current diagnosis for this admission?: Yes (5) Slurred speech Is this a current diagnosis for this admission?: Yes (6) Polysubstance abuse Is this a current diagnosis for this admission?: Yes (7) Metabolic encephalopathy Is this a current diagnosis for this admission?: Yes (8) Hypokalemia Is this a current diagnosis for this admission?: Yes (9) Sepsis Qualifiers: Sepsis type: sepsis due to unspecified organism Qualified Code(s): A41.9 - Sepsis, unspecified organism Is this a current diagnosis for this admission?: Yes
[2017-02-12] MEDS: HEPARIN SOD (PORCINE) 5,000 UNIT/ML 1 ML SYRINGE SUBCUT SCH ×2 (06:29→14:26)
[2017-02-12 09:31] LABS: ABSOLUTE BASOPHILS # (AUTO) 0.1 10^3/uL (0.0-0.2); ABSOLUTE EOSINOPHILS # (AUTO) 0.2 10^3/uL (0.0-0.6); ABSOLUTE LYMPHOCYTES (AUTO) 2.5 10^3/uL (0.5-4.7); ABSOLUTE MONOCYTES (AUTO) 0.5 10^3/uL (0.1-1.4); ABSOLUTE NEUT (AUTO) 6.4 10^3/uL (1.7-8.2); BASOPHILS % (AUTO) 0.9 % (0-2); EOSINOPHILS % (AUTO) 1.8 % (0-6); HEMATOCRIT 38.4 % (37.9-51.0); HEMOGLOBIN 13.4 g/dL (13.5-17.0); HGB HCT DIFFERENCE 1.8; LYMPHOCYTES % (AUTO) 26.2 % (13-45); MEAN CORPUSCULAR HEMOGLOBIN 33.2 pg (27.0-33.4); MEAN CORPUSCULAR HGB CONC 34.9 g/dL (32.0-36.0); MEAN CORPUSCULAR VOLUME 95 fl (80-97); MONOCYTES % (AUTO) 4.8 % (3-13); RED BLOOD COUNT 4.03 10^6/uL (4.35-5.55); SEGMENTED NEUTROPHILS % (AUTO) 66.3 % (42-78); WHITE BLOOD COUNT 9.6 10^3/uL (4.0-10.5)
[2017-02-12 09:49] LABS: BLOOD UREA NITROGEN 5 mg/dL (7-20); CARBON DIOXIDE 21 mmol/L (22-30); CHLORIDE 103 mmol/L (98-107); CREATININE RESULT 0.98 mg/dL (0.52-1.25); GLUCOSE 129 mg/dL (75-110)
[2017-02-12 09:50] LABS: CALCIUM 9.8 mg/dL (8.4-10.2); POTASSIUM 4.7 mmol/L (3.6-5.0)
[2017-02-12 09:51] LABS: ANION GAP 12 (5-19); SODIUM 136.4 mmol/L (137-145)
--- NOTE | 2017-02-12 09:56 | XCELERA REPORT ---
[address] [address] Lower Extremity Arterial Evaluation Name: BUTCH BIRD Age: 61 yrs Gender: Male : 1955 Patient Status: Inpatient Patient Location: [address] [place] [address] Study Date: 02/05/2017 10:39 AM Procedure: A color flow and duplex scan of the lower extremity arteries was performed bilaterally with velocity and waveform anaylsis. Ankle brachial indicies performed. Reason For Study: PAD Ordering Physician: MERRILL RENEE Performed By: Alicia Grant Measurements and Calculations Right Left TEACHER ASSOCIATE PSV 110.8 98.1 cm/sec Prox PFA PSV -114.7 -55.0 cm/sec Prox SFA PSV -72.2 -57.6 cm/sec Mid SFA PSV -120.7 -128.5 cm/sec Dist SFA PSV -40.9 -74.0 cm/sec Prox Pop A PSV 68.8 61.2 cm/sec Dist ROSALIE PSV 93.2 57.8 cm/sec Dist SOFTBALL COACH PSV 59.4 77.7 cm/sec Dist Andriy A PSV 41.2 39.9 cm/sec Arnie Pedis PSV 77.7 62.4 cm/sec Right Side Arterial Evaluation Normal velocity and triphasic waveforms noted from the Common Femoral artery to the infrageniculate vessels. 0 % stenosis noted . Ankle Brachial index is 1.21. Left Side Arterial Evaluation Normal velocity and triphasic waveforms noted from the Common Femoral artery to the infrageniculate vessels. 0 % stenosis noted . Ankle Brachial index is 1.20. Interpretation Summary No hemodynamically significant lesions noted in the bilateral lower extremity arteries, on duplex imaging, at rest. : MERRILL RENEE > Nilesh Ricci
[2017-02-12] MEDS: METOPROLOL SUCCINATE 25 MG TAB.SR.24H PO SCH (10:10)
[2017-02-12] MEDS: CEFEPIME 2 GM/D5W RTU 2 GM/50 ML RTUPB IV SCH (10:10)
[2017-02-12] MEDS: POTASSI CL 40 MEQ/D5-1/2NS 1L 40 MEQ/1,000 ML RTUINJ IV PRN (10:11)
[2017-02-12] MEDS: LEVOFLOXACIN 500 MG TABLET PO SCH (10:11)
[2017-02-12] MEDS: AMLODIPINE BESYLATE 5 MG TABLET PO SCH (10:11)
[2017-02-12 18:09] VITALS: BP 130/78
--- NOTE | 2017-02-12 18:38 | PDOC DISCHARGE SUMMARY ---
General - Admit/Disc Date/PCP Admission Date/Primary Care Provider: 02/03/17 07:48 MERRILL RENEE MD Discharge Date: 02/12/17 - Discharge Diagnosis (1) Aspiration pneumonia of left upper lobe Is this a current diagnosis for this admission?: Yes (2) Left upper lobe pneumonia Is this a current diagnosis for this admission?: Yes (3) Acute kidney injury Is this a current diagnosis for this admission?: Yes (4) Rhabdomyolysis Is this a current diagnosis for this admission?: Yes (5) Slurred speech Is this a current diagnosis for this admission?: Yes (6) Polysubstance abuse Is this a current diagnosis for this admission?: Yes (7) Metabolic encephalopathy Is this a current diagnosis for this admission?: Yes (8) Hypokalemia Is this a current diagnosis for this admission?: Yes (9) Sepsis Is this a current diagnosis for this admission?: Yes - Additional Information Resuscitation Status: Full Code Discharge Diet: Regular Discharge Activity: Activity As Tolerated, Balance Activity w/Rest Home Medications: Amlodipine Besylate [Norvasc 10 mg Tablet] 10 mg PO DAILY 02/03/17 Hydrochlorothiazide [Hydrodiuril 12.5 mg Capsule] 12.5 mg PO DAILY 02/03/17 Metoprolol Succinate [Toprol Xl 25 mg Tab.sr] 25 mg PO Q12 02/03/17 Levofloxacin [Levaquin 500 mg Tablet] 500 mg PO DAILY #10 tablet 02/12/17 History of Present Illness History of Present Illness: BUTCH BIRD is a 61 year old male, he has a history of hypertension he came to the emergency room last night for evaluation of generalized weakness he apparently had alcohol, rum on Wednesday with a friend that came back from [place]. Since he had the alcohol he has been having symptoms of diarrhea and recently his speech was slurred. There is no focal weakness. He was evaluated in the emergency room, lumbar puncture was attempted without success. A CAT scan of the head was done in the emergency room, it was negative for any acute pathology the initial blood work that was done in the emergency room showed WBC 14.4, BUN 48, serum creatinine 2.94, CPK 2208, AST 143, ALT 84 EKG showed sinus tachycardia with the rate of 1 22 bpm. He was also acidotic. When I saw patient on the floor, he was awake, the speech was slurred to some degree.. CT chest was done without contrast, it showed a dense consolidation in the left upper lobe worrisome for acute pneumonia, because of the acute kidney injury kidney ultrasound was done it showed mild increased renal parenchyma echogenicity for medical renal disease there was no hydronephrosis no cyst no masses or stones. Patient stated that after he took the alcohol he felt intoxicated very quickly. Hospital Course Hospital Course: Patient was admitted when he presented with sepsis due to left upper lobe pneumonia suspected to be aspiration type pneumonia. He also had acute kidney injury due to rhabdomyolysis, the serum CPK was elevated, the urine myoglobin was positive and elevated. He has sepsis syndrome with altered mental status, elevated liver enzymes and acute kidney injury. He also had electrolyte derangement with hypokalemia. Patient speech was slurred, CVA was suspected MRI brain was done it was negative for any acute infarction. The urine was positive for marijuana and cocaine suggesting polysubstance abuse. He was treated with IV antibiotic empirically Levaquin and cefepime, no specific pathogen was isolated from the sputum or from the blood. Patient responds very well to treatment, he improved clinically significantly, when was admitted yet altered mental status. He denied using cocaine but he admitted to being in a green party were cocaine and marijuana was available he admitted to using marijuana. Physical Exam Vital Signs: Temp Pulse Resp BP Pulse Ox 98.0 F 91 15 130/78 H 97 02/12/17 18:05 02/12/17 18:05 02/12/17 18:05 02/12/17 18:05 02/12/17 18:05 Intake & Output 02/11/17 02/12/17 02/13/17 06:59 06:59 06:59 Intake Total 4012 3121 714 Output Total 3400 3352 600 Balance 612 -231 114 Weight 90 kg 89.9 kg General appearance: PRESENT: no acute distress, well-developed, well-nourished Head exam: PRESENT: atraumatic, normocephalic Eye exam: PRESENT: conjunctiva pink, EOMI, PERRLA Ear exam: PRESENT: normal external ear exam Mouth exam: PRESENT: moist, tongue midline Neck exam: PRESENT: full ROM Respiratory exam: PRESENT: clear to auscultation shiv Cardiovascular exam: PRESENT: RRR, +S1, +S2 Pulses: PRESENT: normal dorsalis pedis pul, +2 pedal pulses bilateral Vascular exam: PRESENT: normal capillary refill GI/Abdominal exam: PRESENT: normal bowel sounds, soft Rectal exam: PRESENT: deferred Neurological exam: PRESENT: alert, awake, oriented to person, oriented to place , oriented to time, oriented to situation, CN II-XII grossly intact Psychiatric exam: PRESENT: appropriate affect, normal mood Skin exam: PRESENT: dry, intact, warm Results Laboratory Results: 02/12/17 09:06 02/12/17 09:06 02/12/17 02/12/17 09:06 09:06 WBC 9.6 RBC 4.03 L Hgb 13.4 L Hct 38.4 MCV 95 MCH 33.2 MCHC 34.9 RDW 15.0 H Plt Count 367 Seg Neutrophils % 66.3 Lymphocytes % 26.2 Monocytes % 4.8 Eosinophils % 1.8 Basophils % 0.9 Absolute Neutrophils 6.4 Absolute Lymphocytes 2.5 Absolute Monocytes 0.5 Absolute Eosinophils 0.2 Absolute Basophils 0.1 Sodium 136.4 L Potassium 4.7 Chloride 103 Carbon Dioxide 21 L Anion Gap 12 BUN 5 L Creatinine 0.98 Est GFR ( Amer) > 60 Est GFR (Non-Af Amer) > 60 Glucose 129 H Calcium 9.8 02/03/17 02/03/17 02/03/17 09:48 09:48 09:48 Creatine Kinase 2837 H CK-MB (CK-2) 16.00 H Troponin I 0.046 NT-Pro-B Natriuret Pep 184 02/03/17 02/03/17 02/03/17 13:52 13:52 20:46 Creatine Kinase 2747 H 2757 H CK-MB (CK-2) 15.70 H Troponin I 0.046 NT-Pro-B Natriuret Pep 02/03/17 02/05/17 02/05/17 20:46 20:23 20:23 Creatine Kinase 501 H CK-MB (CK-2) 14.50 H 3.38 Troponin I 0.032 < 0.012 NT-Pro-B Natriuret Pep 02/06/17 02/06/17 02/06/17 04:17 04:17 11:40 Creatine Kinase 420 H 320 H CK-MB (CK-2) 2.99 Troponin I < 0.012 NT-Pro-B Natriuret Pep 02/06/17 11:40 Creatine Kinase CK-MB (CK-2) 2.08 Troponin I < 0.012 NT-Pro-B Natriuret Pep Impressions: Chest CT 02/03/17 00:00 IMPRESSION: Left upper lobe pneumonia. Head MRI 02/03/17 00:00 IMPRESSION: Minimal chronic white matter disease. 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 No acute findings. EVIDENCE OF ACUTE STROKE: NO. Renal Ultrasound 02/03/17 00:00 IMPRESSION: Mild increased renal parenchymal echogenicity from medical renal disease. No hydronephrosis, cysts, stones, or masses. Head CT 02/03/17 02:14 IMPRESSION: No acute intracranial hemorrhage or acute territorial infarct. Chest X-Ray 02/10/17 00:00 IMPRESSION: There is been slight increase in left upper lobe infiltrate since prior chest film.
== END 2017-02-12 19:23 | disposition home health service (06) | DRG 871 ==
LOC: ER 02:05 → UNDOADMIN 05:46 → EH 05:46 → 3S 07:40 → EH 07:40 → 3S 07:48
PROVIDERS: ADMIT Internal Medicine; ATTEND Internal Medicine
DX: A41.9 Sepsis, unspecified organism (principal); J69.0 Pneumonitis due to inhalation of food and vomit; G93.41 Metabolic encephalopathy; N17.0 Acute kidney failure with tubular necrosis; E87.2 Acidosis; M62.82 Rhabdomyolysis; E86.0 Dehydration; E87.6 Hypokalemia; I10 Essential (primary) hypertension; R47.81 Slurred speech; F17.210 Nicotine dependence, cigarettes, uncomplicated; F12.90 Cannabis use, unspecified, uncomplicated; F14.90 Cocaine use, unspecified, uncomplicated; B35.1 Tinea unguium
CPT/HCPCS: 36415; 36600; 70450; 70551; 71010; 71020; 71250; 76770; 80048; 80053; 80061; 80202; 80307; 81001; 82140; 82150; 82550; 82553; 82803; 83036; 83605; 83690; 83735; 83874; 83880; 84100; 84439; 84443; 84484; 85025; 85610; 85730; 87040; 87077; 87186; 87493; 93005; 93010; 93925; 99285; J0692; J1644; J1956; J2405; J3370; J3480; J3490; J7030; J7060

== ENCOUNTER 2019-01-14 18:56 | Inpatient (IN) | payer MEDICAID ==
--- NOTE | 2019-01-14 19:21 | ER Document Report ---
ED Medical Screen (RME) - General Chief Complaint: Head Injury with LOC Stated Complaint: FALL Time Seen by Provider: 01/14/19 19:15 Primary Care Provider: MERRILL RENEE MD [Primary Care Provider] - Follow up as needed Mode of Arrival: Ambulatory Information source: Patient Notes: Patient is a 63-year-old male presents emergency department with chief complaint of syncope and head injury. Patient reports yesterday he had a syncopal episode, fell straight backwards and struck the back of his head onto concrete. He states that he has had an episode of syncope in the past, states that that time it was because of dehydration. He is reporting persistent headache and bilateral arm tingling since the head injury occurred. Exam: Patient alert, answering all questions appropriately. Vital signs were reviewed, no distress noted. No palpable nodules or injury to scalp. I have greeted and performed a rapid initial assessment of this patient. A comprehensive ED assessment and evaluation of the patient, analysis of test results and completion of the medical decision making process will be conducted by additional ED providers. I have specifically instructed the patient or family members with the patient to immediately return to any nursing staff should anything change in the patient's condition or with their chief complaint. This medical record was dictated with voice recognizing software. There may be grammatical, syntax errors that are unintended. TRAVEL OUTSIDE OF THE [place] IN LAST 30 DAYS: No - Related Data Allergies/Adverse Reactions: lisinopril Allergy (Verified 01/14/19 18:57) Angioedema Past Medical History - Social History Frequency of alcohol use: Heavy Drug Abuse: Marijuana - Past Medical History Cardiac Medical History: Reports: Hx Hypertension Denies: Hx Coronary Artery Disease, Hx Heart Attack Pulmonary Medical History: Denies: Hx Asthma, Hx Bronchitis, Hx COPD, Hx Pneumonia Neurological Medical History: Denies: Hx Cerebrovascular Accident, Hx Seizures Renal/ Medical History: Denies: Hx Peritoneal Dialysis GI Medical History: Musculoskeltal Medical History: Reports Hx Arthritis, Reports Hx Musculoskeletal Deformity, Reports Hx Musculoskeletal Trauma Psychiatric Medical History: Reports: Hx Depression Infectious Medical History: Past Surgical History: Reports: Hx Orthopedic Surgery - right knee replacement/neck - Immunizations Hx Diphtheria, Pertussis, Tetanus Vaccination: Yes Physical Exam - Vital signs Vitals: Temp Pulse Resp BP Pulse Ox 98.4 F 83 18 121/93 H 99 01/14/19 19:01 08/17/19 19:01 01/14/19 19:01 01/14/19 19:01 01/14/19 19:01 Course - Vital Signs Vital signs: Temp Pulse Resp BP Pulse Ox 98.4 F 83 18 121/93 H 99 01/14/19 19:01 01/14/19 19:01 01/14/19 19:01 01/14/19 19:01 01/14/19 19:01 Doctor's Discharge - Discharge Referrals: MERRILL RENEE MD [Primary Care Provider] - Follow up as needed
[2019-01-14] MEDS ORDERED: NORMAL SALINE 1000 ML 1,000 ML IV ONE (19:49)
--- NOTE | 2019-01-14 20:12 | RADIOLOGY REPORT (SQ) ---
EXAM DESCRIPTION: CT HEAD WITHOUT IV CONTRAST COMPLETED DATE/TME: 01/14/2019 19:19 CLINICAL HISTORY: 63 years, Male, syncope, fall, head injury Compared to MR head dated 02/03/2017. CT head dated 02/03/2017. This exam was performed according to our departmental dose-optimization program which includes automated exposure control, adjustment of the mA and/or kVp according to patient size and/or use of iterative reconstruction technique where applicable. FINDINGS: No acute intracranial hemorrhage. Right posterior temporal hypodense region consistent with subacute infarction. Ventricles and subarachnoid spaces are preserved. No extra-axial fluid collections. Visualized paranasal sinuses and the mastoid air cells are clear. The skull is intact. IMPRESSION: No acute intracranial hemorrhage. Right posterior temporal region of subacute infarction, new from prior study of 02/03/2017. This is consistent with right MCA territory infarction.
--- NOTE | 2019-01-14 20:13 | RADIOLOGY REPORT (SQ) ---
EXAM DESCRIPTION: CT CERVICAL SPINE WITHOUT IV CONTRAST COMPLETED DATE/TME: 01/14/2019 19:19 CLINICAL HISTORY: 63 years, Male, syncope, fall, head injury This exam was performed according to our departmental dose-optimization program which includes automated exposure control, adjustment of the mA and/or kVp according to patient size and/or use of iterative reconstruction technique where applicable. FINDINGS: Vertebral body heights are intact. Moderate multilevel degenerative changes from C3 through C7. No significant prevertebral soft tissue swelling. Moderate degenerative changes at C1-2. Odontoid process is intact. IMPRESSION: No fracture or subluxation. Moderate degenerative changes.
[2019-01-14 20:23] LABS: ABSOLUTE BASOPHILS # (AUTO) 0.1 10^3/uL (0.0-0.2); ABSOLUTE EOSINOPHILS # (AUTO) 0.1 10^3/uL (0.0-0.6); ABSOLUTE NEUT (AUTO) 5.3 10^3/uL (1.7-8.2); BASOPHILS % (AUTO) 0.9 % (0-2); EOSINOPHILS % (AUTO) 1.4 % (0-6); HEMATOCRIT 43.5 % (37.9-51.0); HEMOGLOBIN 15.1 g/dL (13.5-17.0); LYMPHOCYTES % (AUTO) 31.9 % (13-45); MEAN CORPUSCULAR HEMOGLOBIN 32.8 pg (27.0-33.4); MEAN CORPUSCULAR HGB CONC 34.6 g/dL (32.0-36.0); MEAN CORPUSCULAR VOLUME 95 fl (80-97); MONOCYTES % (AUTO) 10.2 % (3-13); PLATELET COUNT 231 10^3/uL (150-450); RED BLOOD COUNT 4.59 10^6/uL (4.35-5.55); SEGMENTED NEUTROPHILS % (AUTO) 55.6 % (42-78); TOTAL CELLS COUNTED % (AUTO) 100 %; WHITE BLOOD COUNT 9.5 10^3/uL (4.0-10.5)
--- NOTE | 2019-01-14 20:35 | ER Document Report ---
ED General - General Chief Complaint: Head Injury with LOC Stated Complaint: FALL Time Seen by Provider: 01/14/19 19:15 Mode of Arrival: Ambulatory Information source: Patient, [facility] Records Notes: 63-year-old male with hypertension presents with complaint of headache, left arm numbness and syncope. Patient states that while walking up the stairs he tripped over a garden hose causing him to fall backwards onto the concrete hitting his head and causing him to lose consciousness. Patient states that he awoke on the ground and was able to ambulate back up the stairs. He was urged by his family members to be seen in the emergency department. Patient also reports that several days ago his brother told him that he was slurring his speech but denies any previous history of CVA. Patient also denies any preceding dizziness, chest pain or shortness of breath prior to his fall. TRAVEL OUTSIDE OF THE [place] IN LAST 30 DAYS: No - HPI Onset: Yesterday Onset/Duration: Gradual, Persistent, Worse Quality of pain: Achy, Throbbing Severity: Moderate Pain Level: 2 Associated symptoms: Headache, Nausea, Other - Left arm numbness. denies: Chest pain, Productive cough, Shortness of breath Exacerbated by: Denies Relieved by: Denies Similar symptoms previously: No Recently seen / treated by doctor: Yes - Related Data Allergies/Adverse Reactions: lisinopril Allergy (Verified 01/14/19 18:57) Angioedema Past Medical History - General Information source: Patient - Social History Smoking Status: Current Every Day Smoker Cigarette use (# per day): Yes - 15 Smoking Education Provided: Yes - Smoking cessation counseling was provided for 4 minutes at the bedside Frequency of alcohol use: Heavy Drug Abuse: Marijuana Lives with: Family Family History: Malignancy, Reviewed & Not Pertinent Patient has suicidal ideation: No Patient has homicidal ideation: No - Past Medical History Cardiac Medical History: Reports: Hx Hypertension Denies: Hx Coronary Artery Disease, Hx Heart Attack Pulmonary Medical History: Denies: Hx Asthma, Hx Bronchitis, Hx COPD, Hx Pneumonia Neurological Medical History: Denies: Hx Cerebrovascular Accident, Hx Seizures Renal/ Medical History: Denies: Hx Peritoneal Dialysis GI Medical History: Musculoskeletal Medical History: Reports Hx Arthritis, Reports Hx Musculoskeletal Deformity, Reports Hx Musculoskeletal Trauma Psychiatric Medical History: Reports: Hx Depression Infectious Medical History: Past Surgical History: Reports: Hx Orthopedic Surgery - right knee replacement/neck - Immunizations Hx Diphtheria, Pertussis, Tetanus Vaccination: Yes Review of Systems - Review of Systems Notes: REVIEW OF SYSTEMS: CONSTITUTIONAL : Denies fever, chills, or sweats. Denies recent illness. Denies weight loss, recent hospitalizations. EENT: Denies visual changes, eye pain. Denies sore throat, oral lesions, difficulty swallowing. CARDIOVASCULAR: Denies chest pain. Denies palpitations. Denies lower extremity edema. RESPIRATORY: Denies cough. Denies shortness of breath, wheezing. GASTROINTESTINAL: Denies abdominal pain or distention. Denies vomiting, or diarrhea. Denies blood in vomitus, stools, or per rectum. Denies black, tarry stools. Denies constipation. GENITOURINARY: Denies difficulty urinating, painful urination, frequency, blood in urine, testicular pain or penile discharge. MUSCULOSKELETAL: Denies back or neck pain or stiffness. Denies joint pain or swelling. SKIN: Denies rash, lesions or sores. HEMATOLOGIC : Denies easy bruising or bleeding. LYMPHATIC: Denies swollen glands. NEUROLOGICAL: Denies confusion or altered mental status. Denies loss of consciousness. Denies dizziness or lightheadedness. Denies weakness or paralysis. Denies problems difficulty with ambulatio.. Denies sensory loss, or tingling. Denies seizures. PSYCHIATRIC: Denies anxiety or stress. Denies depression, suicidal ideation, or Physical Exam - Vital signs Vitals: Temp Pulse Resp BP Pulse Ox 98.4 F 83 18 121/93 H 99 01/14/19 19:01 01/14/19 19:01 01/14/19 19:01 01/14/19 19:01 01/14/19 19:01 - Notes Notes: PHYSICAL EXAMINATION: GENERAL: Well-appearing, well-nourished and in no acute distress. HEAD: Atraumatic, normocephalic. EYES: Pupils equal round and reactive to light, extraocular movements intact, sclera anicteric, conjunctiva are normal. ENT: Nares patent, oropharynx clear without exudates. Moist mucous membranes. NECK: Normal range of motion, supple without lymphadenopathy LUNGS: Breath sounds clear to auscultation bilaterally and equal. No wheezes rales or rhonchi. HEART: Regular rate and rhythm without murmurs ABDOMEN: Soft, nontender, nondistended abdomen. No guarding, no rebound. No masses appreciated. Musculoskeletal: Normal range of motion, no pitting or edema. No cyanosis. NEUROLOGICAL: Mental status; alert and oriented x3. Cranial nerves II through XII intact. Sensation intact to sharp/dull differentiation in all extremities. Motor; normal tone. No abnormal movements appreciated. No pronator drift. Strength tested and 5/5 in bilateral wrist flexion/extension, elbow flexion/extension, shoulder abduction, straight leg raise, knee flexion/extension, ankle dorsiflexion/plantar flexion. Patient ambulates with a steady gait. Coordination; no ataxia. Finger to nose and heel to trujillo testing intact bilaterally. Reflexes; brachial radialis, biceps, and patellar reflexes within normal limits and symmetric bilaterally. Babinski with downgoing toes bilaterally. PSYCH: Normal mood, normal affect. SKIN: Warm, Dry, normal turgor, no rashes or lesions noted. Course - Re-evaluation Re-evalutation: 01/14/19 21:33 Laboratory 01/14/19 01/14/19 01/14/19 20:10 20:10 20:10 WBC 9.5 RBC 4.59 Hgb 15.1 Hct 43.5 MCV 95 MCH 32.8 MCHC 34.6 RDW 14.0 Plt Count 231 Seg Neutrophils % 55.6 Lymphocytes % 31.9 Monocytes % 10.2 Eosinophils % 1.4 Basophils % 0.9 Absolute Neutrophils 5.3 Absolute Lymphocytes 3.0 Absolute Monocytes 1.0 Absolute Eosinophils 0.1 Absolute Basophils 0.1 PT INR APTT Sodium 137.6 Potassium 4.1 Chloride 101 Carbon Dioxide 25 Anion Gap 12 BUN 20 Creatinine 1.34 H Est GFR ( Amer) > 60 Est GFR (Non-Af Amer) 54 L Glucose 103 Calcium 10.0 Total Bilirubin 0.6 Direct Bilirubin 0.4 Neonat Total Bilirubin Not Reportable Neonat Direct Bilirubin Not Reportable Neonat Indirect Bili Not Reportable AST 44 ALT 41 Alkaline Phosphatase 70 Creatine Kinase 557 H CK-MB (CK-2) Troponin I < 0.012 Total Protein 7.8 Albumin 4.7 01/14/19 01/14/19 20:10 20:10 WBC RBC Hgb Hct MCV MCH MCHC RDW Plt Count Seg Neutrophils % Lymphocytes % Monocytes % Eosinophils % Basophils % Absolute Neutrophils Absolute Lymphocytes Absolute Monocytes Absolute Eosinophils Absolute Basophils PT 12.8 INR 0.96 APTT 28.1 Sodium Potassium Chloride Carbon Dioxide Anion Gap BUN Creatinine Est GFR ( Amer) Est GFR (Non-Af Amer) Glucose Calcium Total Bilirubin Direct Bilirubin Neonat Total Bilirubin Neonat Direct Bilirubin Neonat Indirect Bili AST ALT Alkaline Phosphatase Creatine Kinase CK-MB (CK-2) 2.18 Troponin I Total Protein Albumin Cervical Spine CT 01/14/19 19:19 IMPRESSION: No fracture or subluxation. Moderate degenerative changes. Head CT 01/14/19 19:19 IMPRESSION: No acute intracranial hemorrhage. Right posterior temporal region of subacute infarction, new from prior study of 02/03/2017. This is consistent with right MCA territory infarction. Chest X-Ray 01/14/19 20:34 IMPRESSION: No acute cardiopulmonary disease. Temp Pulse Resp BP Pulse Ox 98.4 F 63 17 134/98 H 100 01/14/19 19:01 01/14/19 20:51 01/14/19 20:51 01/14/19 20:51 01/14/19 20:51 01/15/19 02:54 63-year-old male presents with concern for a syncopal episode that occurred yesterday and a persistent headache and left hand paresthesias. Vital signs reviewed upon arrival and within normal limits. Patient does not appear toxic or dehydrated. He he is in no acute distress. NIH was performed and 2 for mild left-sided facial droop and decreased sensation in the left upper extremity. CT of the head was obtained and showed a subacute infarction of the right MCA territory. I did speak to Dr. Peterson the patient's primary care physician who has agreed to admit the patient to the [facility]. 01/15/19 02:55 Family presents at the bedside and brother reports that the patient was unable to do simple tasks last week which he thought was abnormal for the patient and he also reports that the patient had slurred speech and complained of left arm weakness. 01/15/19 02:56 - Vital Signs Vital signs: Temp Pulse Resp BP Pulse Ox 98.8 F 72 20 136/95 H 99 01/15/19 00:53 01/15/19 00:53 01/15/19 00:53 01/15/19 00:53 01/15/19 00:53 - Laboratory Result Diagrams: 01/14/19 20:10 01/14/19 20:10 Laboratory results interpreted by me: 01/14/19 20:10 Creatinine 1.34 H Est GFR (Non-Af Amer) 54 L Creatine Kinase 557 H - Diagnostic Test Radiology reviewed: Image reviewed, Reports reviewed - EKG Interpretation by Me EKG shows normal: Sinus rhythm Rate: Normal [place]/QRS: Left axis deviation When compared to previous EKG there are: Changes noted Discharge - Discharge Clinical Impression: Subacute MCA stroke, Syncope and collapse, CHRIS (acute kidney injury), Slurred speech, Headache Headache Qualifiers: Headache type: unspecified Headache chronicity pattern: unspecified pattern Intractability: not intractable Qualified Code(s): R51 - Headache Hypertension Qualifiers: Hypertension type: unspecified Qualified Code(s): I10 - Essential (primary) hypertension Condition: Good Disposition: ADMITTED INPATIENT Admitting Provider: Nicholas Unit Admitted: [facility] ED NIH Stroke Scale - NIH Stroke Scale *: 1. NIH scale should be completed with appropriate accompanying assessment tools. *: 2. The NIH should reflect what the patient is capable of doing and should not be coached by the clinician. 1a. Level of Consciousness: 0=Alert;keenly responsive -: 1=Drowsy -: 2=Obtunded -: 3=Coma/unresponsive or reflex to noxious stimuli. 1a. Responses: 0 1b. Orientation Questions: a. What month is it? -: b. How old are you? -: 0=Answers both questions correctly. -: 1=Answers one question correctly or patient is intubated or has orotracheal trauma. -: 2=Answers neither question correctly. 1b. Responses: 0 1c. Response to commands: a. Open and close eyes? -: b. [employer] Food Sales Assistant and release hand? -: Credit is given despite weakness. Demonstration of task is permitted. Substitute command if hands cannot be used. -: 0=Performs both tasks correctly -: 1=Performs one task correctly -: 2=Performs neither task correctly 1c. Responses: 0 2. Gaze: Establish eye contact and instruct patient to "Follow my finger" -: 0=Normal -: 1=Partial gaze palsy. Gaze is abnormal in one or both eyes, but where forced deviation or total gaze paresis is not present. -: 2=Forced deviation or total gaze paresis. 2. Responses: 0 3. Visual Glass: Sees fingers in all four quadrants. -: 0=No visual loss. -: 1=Partial hemianopsia. -: 2=Complete hemianopsia. -: 3=Bilateral hemianopsia (including Cortical blindness) 3. Responses: 0 4. Facial Movement: Instruct patient to: -: a. Show me your teeth -: b. Raise your eyebrows -: c. Close your eyes -: d. Smile -: 0=Normal symmetrical movement -: 1=Minor paralysis (flattened nasolabial fold, asymmetry on smiling). -: 2=Partial paralysis (total or near total paralysis of lower face). -: 3=Complete paralysis of upper and lower face 4. Responses: 1 5. Motor functions (left arm): Alternate sides and extend each arm with palms down (90 degrees if sitting or 45 degrees for supine). -: 0=No drift;limb holds for full 10 seconds. -: 1=Drift; limb holds but drifts down before full 10 seconds, but does not hit bed. -: 2=Some effort against gravity; limb cannot get to or maintain position. -: 3=No effort against gravity; limb falls. -: 4=No movement. -: UN=Amputation, joint fusion, explain in comments. 5. Responses (left arm): 0 5. Motor Functions (right arm): Alternate sides and extend each arm with palms down (90 degrees if sitting or 45 degrees for supine). -: 0=No drift;limb holds for full 10 seconds. -: 1=Drift; limb holds but drifts down before full 10 seconds, but does not hit bed. -: 2=Some effort against gravity; limb cannot get to or maintain position. -: 3=No effort against gravity; limb falls. -: 4=No movement. -: UN=Amputation, joint fusion, explain in comments. 5. Responses (right arm): 0 6. Motor Functions (left leg): With patient lying supine, alternate sides and extend each leg (30 degrees always while supine). -: 0=No drift, leg holds position for full 5 seconds -: 1=Drift; leg falls before full 5 seconds but does not hit bed. -: 2=Some effort against gravity, leg falls to bed but some effort against gravity. -: 3=No effort against gravity, leg falls to bed immediately. -: 4=No movement. -: UN=Amputation, joint fusion; explain in comments. 6. Responses (left leg): 0 6. Motor Functions (right leg): With patient lying supine, alternate sides and extend each leg (30 degrees always while supine). -: 0=No drift, leg holds position for full 5 seconds -: 1=Drift; leg falls before full 5 seconds but does not hit bed. -: 2=Some effort against gravity, leg falls to bed but some effort against gravity. -: 3=No effort against gravity, leg falls to bed immediately. -: 4=No movement. -: UN=Amputation, joint fusion; explain in comments. 6. Responses (right leg): 0 7. Limb Ataxia: With eyes open instruct patient to: -: a. "Touch your finger to your nose". -: b. "Touch your heel to your trujillo" -: 0=Absent -: 1=Present in one limb. -: 2=Present in two limbs. -: UN=Amputation or joint fusion; explain in comments. 7. Responses: 0 8. Sensory: Test sensation using pinprick or noxious stimuli. Test as many body parts as possible. -: 0=Normal;no sensory loss -: 1=Mile to moderate sensory loss (patient feels pin prick but is less sharp on affected side). -: 2=Severe or total sensory loss. 8. Responses: 1 9. Best Language: Instruct patient to: -: a. "Describe what you see in this picture." -: b. "Name the items in this picture." -: c. "Read these sentences." -: 0=No aphasia, normal -: 1=Mild to moderate aphasia. -: 2=Severe aphasia -: 3=[place]ute, global aphasia, no usable speech or auditory comprehension. 9. Responses: 0 10. Articulation, Dysarthia: Instruct patient to: -: "Read these words" or "Repeat these words" -: 0=Normal -: 1=Mild to moderate; patient may slur some words but can be understood without difficulty. -: 2=Severe; patients speech so slurred as to be unintelligible in the absence of dysphasia. -: UN=Intubated or other physical barrier, explain in comments. 10. Responses: 0 11. Extinction or inattention: 0=No abnormality -: 1= Visual, tactile, auditory, spatial, or personal inattention or extinction to bilateral simulation in one or the sensory modalities. -: 2=Profound jenni-inattention or jenni-inattention to more than one modality; does not recognize own hand. 11. Responses: 0 Total Score: 2
[2019-01-14] MEDS ORDERED: DIPHENHYDRAMINE HCL 50 MG/ML VIAL IV ONE (20:40)
[2019-01-14] MEDS ORDERED: METOCLOPRAMIDE HCL INJ/PF 10 MG/2 ML SDV IV ONE (20:40)
[2019-01-14 20:46] LABS: ALBUMIN 4.7 g/dL (3.5-5.0); ALKALINE PHOSPHATASE 70 U/L (38-126); ANION GAP 12 (5-19); ASPARTATE AMINO TRANSFERASE 44 U/L (17-59); BILIRUBIN,DIRECT 0.4 mg/dL (0.0-0.4); BILIRUBIN,TOTAL 0.6 mg/dL (0.2-1.3); BLOOD UREA NITROGEN 20 mg/dL (7-20); CARBON DIOXIDE 25 mmol/L (22-30); CHLORIDE 101 mmol/L (98-107); CREATINE KINASE 557 U/L (55-170); GLUCOSE 103 mg/dL (75-110); POTASSIUM 4.1 mmol/L (3.6-5.0); TOTAL PROTEIN 7.8 g/dL (6.3-8.2)
[2019-01-14 20:50] LABS: INTERNATIONAL RATION (INR) 0.96
[2019-01-14 20:51] LABS: PARTIAL THROMBOPLASTIN TIME 28.1 SEC (23.5-35.8)
[2019-01-14 20:56] LABS: PROTHROMBIN TIME 12.8 SEC (11.4-15.4)
--- NOTE | 2019-01-14 21:04 | RADIOLOGY REPORT (SQ) ---
XR CHEST 1 VIEW CLINICAL STATEMENT: stroke COMPARISON: 02/10/2017 FINDINGS: Heart is mildly enlarged.. There is no focal lung consolidation or pleural effusion. No evidence of pulmonary edema or pneumothorax. IMPRESSION: No acute cardiopulmonary disease.
[2019-01-14] MEDS ORDERED: DEXTROSE 40% GEL 15 GM TUBE PO PRN ×2 (21:57)
[2019-01-14] MEDS ORDERED: DEXTROSE 50%-WATER 25 GM/50 ML DISP.SYRIN IV PRN ×2 (21:57)
[2019-01-14] MEDS ORDERED: GLUCAGON,HUMAN RECOMB 1 MG INJ SUBCUT PRN (21:57)
[2019-01-14] MEDS ORDERED: ASPIRIN 81 MG TABLET, ENT COATED PO ONE (23:00)
[2019-01-14] MEDS ORDERED: ENOXAPARIN SODIUM INJ 40 MG/0.4 ML DISP.SYRIN SUBCUT ONE (23:15)
[2019-01-14] MEDS: ATORVASTATIN CALCIUM 80 MG TABLET PO SCH (23:31)
[2019-01-15 00:18] LABS: ARTERIAL BLOOD BASE EXCESS -2.6 mmol/L; ARTERIAL BLOOD H2CO3 0.98 mmol/L (1.05-1.35); ARTERIAL BLOOD HCO3 20.8 mmol/L (20-24); ARTERIAL BLOOD O2 SATURATION 96.4 % (94-98); ARTERIAL BLOOD PCO2 32.6 mmHg (35-45); ARTERIAL BLOOD PH 7.42 (7.35-7.45); ARTERIAL BLOOD PO2 81.7 mmHg (80-100); ARTERIAL BLOOD TOTAL CO2 21.8 mmol/L (23-27)
[2019-01-15 00:19] LABS: APPEARANCE,URINE CLEAR; BILIRUBIN,URINE NEGATIVE (NEGATIVE); COLOR,URINE YELLOW; GLUCOSE, URINE NEGATIVE (NEGATIVE); KETONES,URINE NEGATIVE (NEGATIVE); LEUKOCYTE ESTERASE,URINE NEGATIVE (NEGATIVE); NITRITE,URINE NEGATIVE (NEGATIVE); PROTEIN,URINE NEGATIVE (NEGATIVE); URINE SPECIFIC GRAVITY 1.009; UROBILINOGEN,URINE NEGATIVE mg/dL (<2.0)
[2019-01-15 00:25] LABS: ARTERIAL BLOOD FIO2 ROOM AIR
[2019-01-15 02:54] LABS: CHOLESTEROL 150.66 mg/dL (0-200); TRIGLYCERIDES 83 mg/dL (<150)
[2019-01-15 03:05] LABS: CREATINE KINASE MB 2.15 ng/mL (<4.55); DIRECT LDL 97 mg/dL (<100); TROPONIN I < 0.012 ng/mL
[2019-01-15 09:08] LABS: CREATINE KINASE MB 1.74 ng/mL (<4.55); TROPONIN I < 0.012 ng/mL
[2019-01-15] MEDS: ASPIRIN 81 MG TABLET, ENT COATED PO SCH (10:10)
[2019-01-15] MEDS: ENOXAPARIN SODIUM INJ 40 MG/0.4 ML DISP.SYRIN SUBCUT SCH (10:10)
--- NOTE | 2019-01-15 11:28 | PDOC H&P ---
History of Present Illness Admission Date/PCP: 01/14/19 21:47 MERRILL RENEE MD History of Present Illness: BUTCH BIRD is a 63 year old male, he came to the emergency room for evaluation of headache left arm numbness and a fall patient stated that while walking up the stairs he tripped over a garden hose causing him to fall backward onto the concrete floor hitting his head and causing him to lose consciousness, he stated that he woke from the floor and was able to ambulate he was subsequently ordered by family members to go to the emergency room for evaluation of his symptoms. He stated that several days before he felt his brother noticed that his speech was slurred. In the emergency room he underwent multiple imaging including the head, CT head without contrast was obtained, it demonstrated right posterior temporal hypodense lesion consistent with subacute infarction the ventricles and the subarachnoid spaces well-preserved no extra-axial fluid collections this CAT scan finding is consistent with right posterior temporal lobe subacute infarction consistent with right MCA territory infarct. Clinically there is no focal deficit, there is no weakness though he has left hemisensory loss, patient is admitted to be managed for stroke Past Medical History Cardiac Medical History: Reports: Hypertension GI Medical History: Musculoskeltal Medical History: Reports: Arthritis Psychiatric Medical History: Reports: Depression Hematology: Past Surgical History Past Surgical History: Reports: Orthopedic Surgery - right knee replacement/neck Social History Lives with: Family Smoking Status: Current Every Day Smoker Frequency of Alcohol Use: Social Hx Recreational Drug Use: Yes Drugs: Marijuana Hx Prescription Drug Abuse: No Family History Family History: Malignancy, Reviewed & Not Pertinent Parental Family History Reviewed: Yes Children Family History Reviewed: Yes Sibling(s) Family History Reviewed.: Yes Medication/Allergy Home Medications: Metoprolol Succinate [Toprol Xl] 25 mg PO BID 05/18/13 Metoprolol Succinate [Toprol Xl 25 mg Tab.sr] 25 mg PO DAILY #10 tab.sr.24h 10/06/14 Hydrocodone/Acetaminophen [[place] 5-325 mg Tablet] 1 tab PO Q6H PRN #8 tablet 08/20/15 Methocarbamol [Robaxin 500 mg Tablet] 500 mg PO TIDP PRN #10 tablet 08/20/15 Amlodipine Besylate [Norvasc 10 mg Tablet] 10 mg PO DAILY 02/03/17 Hydrochlorothiazide [Hydrodiuril 12.5 mg Tablet] 12.5 mg PO DAILY 02/03/17 Metoprolol Succinate [Toprol Xl 25 mg Tab.sr] 25 mg PO Q12 02/03/17 Levofloxacin [Levaquin 500 mg Tablet] 500 mg PO DAILY #10 tablet 02/12/17 Allergies/Adverse Reactions: lisinopril Allergy (Verified 01/14/19 18:57) Angioedema Review of Systems Constitutional: PRESENT: headache(s). ABSENT: chills, fever(s), weight gain, weight loss Eyes: ABSENT: visual disturbances Ears: ABSENT: hearing changes Cardiovascular: ABSENT: chest pain, dyspnea on exertion, edema, orthropnea, palpitations Respiratory: ABSENT: cough, hemoptysis Gastrointestinal: ABSENT: abdominal pain, constipation, diarrhea, hematemesis, hematochezia, nausea, vomiting Genitourinary: ABSENT: dysuria, hematuria Musculoskeletal: ABSENT: joint swelling Integumentary: ABSENT: rash, wounds Neurological: PRESENT: numbness, paresthesias, syncope Psychiatric: ABSENT: anxiety, depression, homidical ideation, suicidal ideation Endocrine: ABSENT: cold intolerance, heat intolerance, menstrual abnormalities, polydipsia, polyuria Hematologic/Lymphatic: ABSENT: easy bleeding, easy bruising, lymphadenopathy Physical Exam Vital Signs: Temp Pulse Resp BP Pulse Ox 98.2 F 71 15 115/79 100 01/15/19 07:49 01/15/19 08:00 01/15/19 08:00 01/15/19 08:00 01/15/19 08:00 Intake & Output 01/14/19 01/15/19 01/16/19 06:59 06:59 06:59 Intake Total 1000 Output Total 0 Balance 1000 Weight 92.5 kg General appearance: PRESENT: no acute distress, well-developed, well-nourished Head exam: PRESENT: atraumatic, normocephalic Eye exam: PRESENT: conjunctiva pink, EOMI, PERRLA Ear exam: PRESENT: normal external ear exam Mouth exam: PRESENT: moist, tongue midline Neck exam: PRESENT: full ROM Respiratory exam: PRESENT: clear to auscultation shiv Cardiovascular exam: PRESENT: RRR, +S1, +S2 Pulses: PRESENT: normal dorsalis pedis pul, +2 pedal pulses bilateral Vascular exam: PRESENT: normal capillary refill GI/Abdominal exam: PRESENT: normal bowel sounds, soft Rectal exam: PRESENT: deferred Neurological exam: PRESENT: alert, CN II-XII grossly intact Psychiatric exam: PRESENT: appropriate affect, normal mood Skin exam: PRESENT: dry, intact, warm Results Laboratory Results: 01/14/19 20:10 01/14/19 20:10 01/14/19 01/14/19 01/14/19 20:10 20:10 23:57 WBC 9.5 RBC 4.59 Hgb 15.1 Hct 43.5 MCV 95 MCH 32.8 MCHC 34.6 RDW 14.0 Plt Count 231 Seg Neutrophils % 55.6 Lymphocytes % 31.9 Monocytes % 10.2 Eosinophils % 1.4 Basophils % 0.9 Absolute Neutrophils 5.3 Absolute Lymphocytes 3.0 Absolute Monocytes 1.0 Absolute Eosinophils 0.1 Absolute Basophils 0.1 Carbonic Acid 0.98 L HCO3/H2CO3 Ratio 21:1 ABG pH 7.42 ABG pCO2 32.6 L ABG pO2 81.7 ABG HCO3 20.8 ABG O2 Saturation 96.4 ABG Base Excess -2.6 FiO2 ROOM AIR Sodium 137.6 Potassium 4.1 Chloride 101 Carbon Dioxide 25 Anion Gap 12 BUN 20 Creatinine 1.34 H Est GFR ( Amer) > 60 Est GFR (Non-Af Amer) 54 L Glucose 103 Calcium 10.0 Total Bilirubin 0.6 AST 44 Alkaline Phosphatase 70 Total Protein 7.8 Albumin 4.7 Triglycerides Cholesterol LDL Cholesterol Direct VLDL Cholesterol HDL Cholesterol Urine Color Urine Appearance Urine pH Ur Specific Riley Urine Protein Urine Glucose (UA) Urine Ketones Urine Blood Urine Nitrite Ur Leukocyte Esterase Urine WBC (Auto) Urine RBC (Auto) 01/14/19 01/15/19 23:57 02:25 WBC RBC Hgb Hct MCV MCH MCHC RDW Plt Count Seg Neutrophils % Lymphocytes % Monocytes % Eosinophils % Basophils % Absolute Neutrophils Absolute Lymphocytes Absolute Monocytes Absolute Eosinophils Absolute Basophils Carbonic Acid HCO3/H2CO3 Ratio ABG pH ABG pCO2 ABG pO2 ABG HCO3 ABG O2 Saturation ABG Base Excess FiO2 Sodium Potassium Chloride Carbon Dioxide Anion Gap BUN Creatinine Est GFR ( Amer) Est GFR (Non-Af Amer) Glucose Calcium Total Bilirubin AST Alkaline Phosphatase Total Protein Albumin Triglycerides 83 Cholesterol 150.66 LDL Cholesterol Direct 97 VLDL Cholesterol 17.0 HDL Cholesterol 39 L Urine Color YELLOW Urine Appearance CLEAR Urine pH 5.0 Ur Specific Riley 1.009 Urine Protein NEGATIVE Urine Glucose (UA) NEGATIVE Urine Ketones NEGATIVE Urine Blood NEGATIVE Urine Nitrite NEGATIVE Ur Leukocyte Esterase NEGATIVE Urine WBC (Auto) 0 Urine RBC (Auto) 1 01/14/19 01/14/19 01/14/19 20:10 20:10 20:10 Creatine Kinase 557 H CK-MB (CK-2) 2.18 Troponin I < 0.012 01/15/19 01/15/19 01/15/19 02:25 02:25 08:06 Creatine Kinase 453 H 440 H CK-MB (CK-2) 2.15 Troponin I < 0.012 01/15/19 08:06 Creatine Kinase CK-MB (CK-2) 1.74 Troponin I < 0.012 Impressions: Cervical Spine CT 01/14/19 19:19 IMPRESSION: No fracture or subluxation. Moderate degenerative changes. Head CT 01/14/19 19:19 IMPRESSION: No acute intracranial hemorrhage. Right posterior temporal region of subacute infarction, new from prior study of 02/03/2017. This is consistent with right MCA territory infarction. Chest X-Ray 01/14/19 20:34 IMPRESSION: No acute cardiopulmonary disease. Assessment & Plan - Diagnosis (1) Right temporal lobe infarction Is this a current diagnosis for this admission?: Yes Plan: Patient is admitted to be managed for stroke, MRI brain is ordered, carotid Dopplers ordered start treatment according to the stroke protocol antiplatelet with aspirin, statin therapy with atorvastatin, 2D echo ordered (2) Syncope Qualifiers: Syncope type: unspecified Qualified Code(s): R55 - Syncope and collapse Is this a current diagnosis for this admission?: Yes
--- NOTE | 2019-01-15 11:30 | EKG REPORT ---
SEVERITY:- ABNORMAL ECG - SINUS RHYTHM LEFT AXIS DEVIATION : Confirmed by: Chandni Boone 15-Jan-2019 11:30:03
--- NOTE | 2019-01-15 11:30 | EKG REPORT ---
SEVERITY:- BORDERLINE ECG - SINUS RHYTHM LEFT AXIS DEVIATION : Confirmed by: Chandni Boone 15-Jan-2019 11:30:27
[2019-01-15] MEDS ORDERED: (PENDING PHARMACY ID) (Multivitamin/Iron/Folic Acid [Centrum Adults Tablet] 1 EACH) PO SCH (11:45)
--- NOTE | 2019-01-15 11:57 | RADIOLOGY REPORT (SQ) ---
EXAM DESCRIPTION: MRI HEAD WITHOUT COMPLETED DATE/TIME: 01/15/2019 11:32 am REASON FOR STUDY: CVA COMPARISON: CT 01/14/2019 TECHNIQUE: Multiplanar imaging includes non-contrasted T1, T2, FLAIR, and diffusion with ADC map seq uences. Images stored on PACS. LIMITATIONS: None. FINDINGS: ANATOMY: No anomalies. Normal vascular flow voids. Pituitary fossa normal. CSF SPACES: Normal size ventricles and CSF spaces. CEREBRUM: There is a large area of signal alteration in the right posterior parietal lobe similar to that seen on CT. Signal on T2 and FLAIR, low signal on T1, no hemorrhage. Underlying microvascular ischemia. POSTERIOR FOSSA: No signal alteration. No hemorrhage. No edema, masses or mass effect. Internal antionette tory canals, cerebello-pontine angles, mastoids normal. DIFFUSION IMAGING: Restricted diffusion in the right posterior parietal lobe. ORBITS: No masses. Globes normal. PARANASAL SINUSES: No fluid levels. Mucosa normal. OTHER: No other significant finding. IMPRESSION: Large area of acute infarction right posterior parietal lobe. No hemorrhage. No mass e ffect. EVIDENCE OF ACUTE STROKE: YES. RIGHT MCA. COMMENT: The findings were sent to the Radiology Results Communication Center at 11:50 on 01/15/2019 to be communicated to a licensed caregiver. TECHNICAL DOCUMENTATION: JOB ID: [id number] [email or web address]- All Rights Reserved Reading location - IP/workstation name: [email or web address]
[2019-01-15] MEDS ORDERED: ENOXAPARIN SODIUM INJ 40 MG/0.4 ML DISP.SYRIN SUBCUT SCH (12:00)
--- NOTE | 2019-01-15 12:04 | PDOC PROGRESS REPORT ---
Subjective Progress Note for:: 01/15/19 Subjective:: Patient was seen by the bedside, MRI brain demonstrated large area of acute infarction in the right posterior parietal lobe, there is no hemorrhage there is no mass-effect Reason For Visit: RT TEMPORAL LOBE INFARCT Physical Exam Vital Signs: Temp Pulse Resp BP Pulse Ox 98.2 F 71 15 115/79 100 01/15/19 07:49 01/15/19 08:00 01/15/19 08:00 01/15/19 08:00 01/15/19 08:00 Intake & Output 01/14/19 01/15/19 01/16/19 06:59 06:59 06:59 Intake Total 1000 Output Total 0 Balance 1000 Weight 92.5 kg General appearance: PRESENT: no acute distress, well-developed, well-nourished Head exam: PRESENT: atraumatic, normocephalic Eye exam: PRESENT: conjunctiva pink, EOMI, PERRLA Ear exam: PRESENT: normal external ear exam Mouth exam: PRESENT: moist, tongue midline Neck exam: PRESENT: full ROM Respiratory exam: PRESENT: clear to auscultation shiv Cardiovascular exam: PRESENT: RRR, +S1, +S2 Pulses: PRESENT: normal dorsalis pedis pul, +2 pedal pulses bilateral Vascular exam: PRESENT: normal capillary refill GI/Abdominal exam: PRESENT: normal bowel sounds, soft Rectal exam: PRESENT: deferred Neurological exam: PRESENT: alert, CN II-XII grossly intact Psychiatric exam: PRESENT: appropriate affect, normal mood Skin exam: PRESENT: dry, intact, warm Results Laboratory Results: 01/14/19 20:10 01/14/19 20:10 01/14/19 01/14/19 01/14/19 20:10 20:10 23:57 WBC 9.5 RBC 4.59 Hgb 15.1 Hct 43.5 MCV 95 MCH 32.8 MCHC 34.6 RDW 14.0 Plt Count 231 Seg Neutrophils % 55.6 Lymphocytes % 31.9 Monocytes % 10.2 Eosinophils % 1.4 Basophils % 0.9 Absolute Neutrophils 5.3 Absolute Lymphocytes 3.0 Absolute Monocytes 1.0 Absolute Eosinophils 0.1 Absolute Basophils 0.1 Carbonic Acid 0.98 L HCO3/H2CO3 Ratio 21:1 ABG pH 7.42 ABG pCO2 32.6 L ABG pO2 81.7 ABG HCO3 20.8 ABG O2 Saturation 96.4 ABG Base Excess -2.6 FiO2 ROOM AIR Sodium 137.6 Potassium 4.1 Chloride 101 Carbon Dioxide 25 Anion Gap 12 BUN 20 Creatinine 1.34 H Est GFR ( Amer) > 60 Est GFR (Non-Af Amer) 54 L Glucose 103 Calcium 10.0 Total Bilirubin 0.6 AST 44 Alkaline Phosphatase 70 Total Protein 7.8 Albumin 4.7 Triglycerides Cholesterol LDL Cholesterol Direct VLDL Cholesterol HDL Cholesterol Urine Color Urine Appearance Urine pH Ur Specific [place] Urine Protein Urine Glucose (UA) Urine Ketones Urine Blood Urine Nitrite Ur Leukocyte Esterase Urine WBC (Auto) Urine RBC (Auto) 01/14/19 01/15/19 23:57 02:25 WBC RBC Hgb Hct MCV MCH MCHC RDW Plt Count Seg Neutrophils % Lymphocytes % Monocytes % Eosinophils % Basophils % Absolute Neutrophils Absolute Lymphocytes Absolute Monocytes Absolute Eosinophils Absolute Basophils Carbonic Acid HCO3/H2CO3 Ratio ABG pH ABG pCO2 ABG pO2 ABG HCO3 ABG O2 Saturation ABG Base Excess FiO2 Sodium Potassium Chloride Carbon Dioxide Anion Gap BUN Creatinine Est GFR ( Amer) Est GFR (Non-Af Amer) Glucose Calcium Total Bilirubin AST Alkaline Phosphatase Total Protein Albumin Triglycerides 83 Cholesterol 150.66 LDL Cholesterol Direct 97 VLDL Cholesterol 17.0 HDL Cholesterol 39 L Urine Color YELLOW Urine Appearance CLEAR Urine pH 5.0 Ur Specific [place] 1.009 Urine Protein NEGATIVE Urine Glucose (UA) NEGATIVE Urine Ketones NEGATIVE Urine Blood NEGATIVE Urine Nitrite NEGATIVE Ur Leukocyte Esterase NEGATIVE Urine WBC (Auto) 0 Urine RBC (Auto) 1 01/14/19 01/14/19 01/14/19 20:10 20:10 20:10 Creatine Kinase 557 H CK-MB (CK-2) 2.18 Troponin I < 0.012 01/15/19 01/15/19 01/15/19 02:25 02:25 08:06 Creatine Kinase 453 H 440 H CK-MB (CK-2) 2.15 Troponin I < 0.012 01/15/19 08:06 Creatine Kinase CK-MB (CK-2) 1.74 Troponin I < 0.012 Impressions: Cervical Spine CT 01/14/19 19:19 IMPRESSION: No fracture or subluxation. Moderate degenerative changes. Head CT 01/14/19 19:19 IMPRESSION: No acute intracranial hemorrhage. Right posterior temporal region of subacute infarction, new from prior study of 02/03/2017. This is consistent with right MCA territory infarction. Chest X-Ray 01/14/19 20:34 IMPRESSION: No acute cardiopulmonary disease. Head MRI 01/15/19 00:00 IMPRESSION: Large area of acute infarction right posterior parietal lobe. No hemorrhage. No mass effect. EVIDENCE OF ACUTE STROKE: YES. RIGHT MCA. Assessment & Plan - Diagnosis (1) Acute right MCA stroke Is this a current diagnosis for this admission?: Yes Plan: Patient is managed according to stroke protocol (2) Right temporal lobe infarction Is this a current diagnosis for this admission?: Yes (3) Syncope Qualifiers: Syncope type: unspecified Qualified Code(s): R55 - Syncope and collapse Is this a current diagnosis for this admission?: Yes
[2019-01-15] MEDS: AMLODIPINE BESYLATE 10 MG TABLET PO SCH (12:47)
[2019-01-15] MEDS: MULTIVITAMIN TABLET PO SCH (12:47)
[2019-01-15] MEDS: METOPROLOL SUCCINATE 25 MG TAB.SR.24H PO SCH ×2 (12:47→21:13)
--- NOTE | 2019-01-15 13:07 | RADIOLOGY REPORT (SQ) ---
EXAM DESCRIPTION: CAROTID DOPPLER COMPLETED DATE/TIME: 01/15/2019 12:57 pm REASON FOR STUDY: CVA COMPARISON: None. TECHNIQUE: Grayscale ultrasound, Doppler velocity and spectra, and color Doppler images acquired of the extra-cranial carotid and vertebral arteries. Images stored on PACS. LIMITATIONS: None. FINDINGS: RIGHT CAROTID CCA Velocities: Within normal limits. ICA Velocities Peak systolic 0.44 m/s. End diastolic 0.19 m/s. Proximal ICA/CCA peak systolic ratio 0.9. Calcified plaque LEFT CAROTID CCA Velocities: Within normal limits. ICA Velocities Peak systolic 0.62 m/s. End diastolic 0.27 m/s. Proximal ICA/CCA peak systolic ratio 1.1. Calcified plaque VERTEBRAL ARTERIES: Antegrade flow. Normal waveforms. SUBCLAVIAN ARTERIES: No finding. OTHER: No other significant finding. IMPRESSION: NO HEMODYNAMICALLY SIGNIFICANT STENOSIS. COMMENT: Quality ID #[id number]: Velocity criteria are extrapolated from the diameter data as defined by t he Society of Radiologists in Ultrasound Consensus Conference. Radiology 2003: 229; 340-346. TECHNICAL DOCUMENTATION: JOB ID: [id number] [email or web address]- All Rights Reserved Reading location - IP/workstation name: [email or web address]
[2019-01-15 14:33] LABS: CREATINE KINASE MB 1.77 ng/mL (<4.55); TROPONIN I < 0.012 ng/mL
[2019-01-15] MEDS: ATORVASTATIN CALCIUM 80 MG TABLET PO SCH (21:13)
[2019-01-16] MEDS: AMLODIPINE BESYLATE 10 MG TABLET PO SCH (09:01)
[2019-01-16] MEDS: MULTIVITAMIN TABLET PO SCH (09:01)
[2019-01-16] MEDS: METOPROLOL SUCCINATE 25 MG TAB.SR.24H PO SCH ×2 (09:01→22:52)
[2019-01-16] MEDS: ENOXAPARIN SODIUM INJ 40 MG/0.4 ML DISP.SYRIN SUBCUT SCH (09:02)
[2019-01-16] MEDS: ASPIRIN 81 MG TABLET, ENT COATED PO SCH (09:02)
--- NOTE | 2019-01-16 19:51 | PDOC PROGRESS REPORT ---
Subjective Progress Note for:: 01/16/19 Subjective:: Patient was admitted for the management of acute right MCA infarct, he has weakness of the left side of his body but he has more hemisensory loss than he has motor deficit Reason For Visit: RT TEMPORAL LOBE INFARCT Physical Exam Vital Signs: Temp Pulse Resp BP Pulse Ox 98.2 F 78 20 118/89 H 95 01/16/19 19:34 01/16/19 19:34 01/16/19 19:34 01/16/19 19:34 01/16/19 19:34 Intake & Output 01/15/19 01/16/19 01/17/19 06:59 06:59 06:59 Intake Total 1000 544 510 Output Total 0 Balance 1000 544 510 Weight 92.5 kg 90.1 kg General appearance: PRESENT: no acute distress Eye exam: PRESENT: PERRLA Neck exam: PRESENT: full ROM Respiratory exam: PRESENT: clear to auscultation shiv Cardiovascular exam: PRESENT: RRR, +S1, +S2 Vascular exam: PRESENT: normal capillary refill GI/Abdominal exam: PRESENT: normal bowel sounds, soft Rectal exam: PRESENT: deferred Neurological exam: PRESENT: alert, motor sensory deficit Skin exam: PRESENT: dry, intact, warm Results Laboratory Results: 01/14/19 20:10 01/14/19 20:10 01/14/19 01/14/19 01/14/19 20:10 20:10 20:10 Creatine Kinase 557 H CK-MB (CK-2) 2.18 Troponin I < 0.012 01/15/19 01/15/19 01/15/19 02:25 02:25 08:06 Creatine Kinase 453 H 440 H CK-MB (CK-2) 2.15 Troponin I < 0.012 01/15/19 01/15/19 01/15/19 08:06 13:48 13:48 Creatine Kinase 424 H CK-MB (CK-2) 1.74 1.77 Troponin I < 0.012 < 0.012 Impressions: Cervical Spine CT 01/14/19 19:19 IMPRESSION: No fracture or subluxation. Moderate degenerative changes. Head CT 01/14/19 19:19 IMPRESSION: No acute intracranial hemorrhage. Right posterior temporal region of subacute infarction, new from prior study of 02/03/2017. This is consistent with right MCA territory infarction. Chest X-Ray 01/14/19 20:34 IMPRESSION: No acute cardiopulmonary disease. Carotid Doppler Study 01/15/19 00:00 IMPRESSION: NO HEMODYNAMICALLY SIGNIFICANT STENOSIS. Head MRI 01/15/19 00:00 IMPRESSION: Large area of acute infarction right posterior parietal lobe. No hemorrhage. No mass effect. EVIDENCE OF ACUTE STROKE: YES. RIGHT MCA. Assessment & Plan - Diagnosis (1) Acute right MCA stroke Is this a current diagnosis for this admission?: Yes Plan: Patient is managed according to stroke protocol (2) Right temporal lobe infarction Is this a current diagnosis for this admission?: Yes (3) Syncope Qualifiers: Syncope type: unspecified Qualified Code(s): R55 - Syncope and collapse Is this a current diagnosis for this admission?: Yes
[2019-01-16] MEDS ORDERED: ACETAMINOPHEN 325 MG TABLET PO PRN (19:57)
[2019-01-16] MEDS: ATORVASTATIN CALCIUM 80 MG TABLET PO SCH (22:52)
[2019-01-17] MEDS: AMLODIPINE BESYLATE 10 MG TABLET PO SCH (09:06)
[2019-01-17] MEDS: ENOXAPARIN SODIUM INJ 40 MG/0.4 ML DISP.SYRIN SUBCUT SCH (09:06)
[2019-01-17] MEDS: METOPROLOL SUCCINATE 25 MG TAB.SR.24H PO SCH ×2 (09:06→22:58)
[2019-01-17] MEDS: MULTIVITAMIN TABLET PO SCH (09:06)
[2019-01-17] MEDS: ASPIRIN 81 MG TABLET, ENT COATED PO SCH (09:06)
--- NOTE | 2019-01-17 19:07 | XCELERA REPORT ---
[address] [address] Transthoracic Echocardiogram Report Name: BUTCH BIRD Age: 63 yrs Gender: Male : 1955 Patient Status: Inpatient Patient Location: [address] [place], [place] [address] Study Date: 01/16/2019 11:09 AM Height: 71 in Weight: 197 lb BSA: 2.1 m2 Procedure: A two-dimensional transthoracic echocardiogram with color flow and Doppler was performed. Study Quality: Fair. Reason For Study: CVA History: CVA. Ordering Physician: MERRILL RENEE Performed By: Murali Maher Interpretation Summary There is no obvious cardiac source of embolus noted on this transthoracic echocardiogram. Follow-up with a NALDO is suggested if cardiac source is still suspected. The left ventricle is normal in size. There is normal left ventricular wall thickness. The left ventricular ejection fraction is within normal limits. LV EF is 65% Doppler measurements suggest impaired left ventricular relaxation, which is associated with grade I/IV or mild diastolic dysfunction The left ventricular wall motion is normal. There is no thrombus. No ASD ,VSD , or PFO seen. The right ventricle is grossly normal size. The right atrium is normal. The left atrial size is normal. There is no evidence of mitral valve prolapse. There is no vegetation seen on the mitral valve. There is no mitral valve stenosis. There is no mitral regurgitation noted. There is no aortic valvular vegetation. There is no aortic valve stenosis There is no LVOT obstruction. No aortic regurgitation is present. There is no tricuspid stenosis. There is a trace to mild amount of tricuspid regurgitation There is mild pulmonary hypertension by echo RVSP is 35 to 40 mm of Hg , with RA mean of 10 to 15. There is no pulmonic valvular stenosis. There is no pulmonic valvular regurgitation. The aortic root is normal size. The inferior vena cava appeared normal and decreased < 50% with respiration (RAP 10-15 mmHg) There is no pericardial effusion. There is no obvious cardiac source of embolus noted on this transthoracic echocardiogram. Follow-up with a NALDO is suggested if cardiac source is still suspected MMode/2D Measurements & Calculations RVDd: 4.0 cm LVIDd: 4.9 cm FS: 41.2 % Ao root diam: 2.9 cm IVSd: 1.1 cm LVIDs: 2.9 cm EDV(Teich): 114.4 ml Ao root area: 6.7 cm2 LVPWd: 1.1 cm ESV(Teich): 32.2 ml LA dimension: 3.4 cm EF(Teich): 71.8 % Doppler Measurements & Calculations MV E max marino: MV P1/2t max marino: Ao V2 max: LV V1 max P.7 cm/sec 76.0 cm/sec 109.8 cm/sec 2.4 mmHg MV A max marino: MV P1/2t: 76.0 msec Ao max P.8 mmHg LV V1 max: 61.7 cm/sec MVA(P1/2t): 2.9 cm2 76.8 cm/sec MV E/A: 0.81 MV dec slope: 292.9 cm/sec2 MV dec time: 0.18 sec PA V2 max: TR max marino: MV P1/2t-pr_phl: 62.9 cm/sec 251.0 cm/sec 76.0 msec PA max PG: TR max P.2 mmHg 1.6 mmHg Left Ventricle The left ventricle is normal in size. There is normal left ventricular wall thickness. The left ventricular ejection fraction is within normal limits. LV EF is 65%. Doppler measurements suggest impaired left ventricular relaxation, which is associated with grade I/IV or mild diastolic dysfunction. The left ventricular wall motion is normal. There is no thrombus. No ASD ,VSD , or PFO seen. Right Ventricle The right ventricle is grossly normal size. Atria The right atrium is normal. The left atrial size is normal. Mitral Valve There is no evidence of mitral valve prolapse. There is no vegetation seen on the mitral valve. There is no mitral valve stenosis. There is no mitral regurgitation noted. Aortic Valve There is no aortic valvular vegetation. There is no aortic valve stenosis. There is no LVOT obstruction. No aortic regurgitation is present. Tricuspid Valve There is no tricuspid stenosis. There is a trace to mild amount of tricuspid regurgitation. There is mild pulmonary hypertension by echo. RVSP is 35 to 40 mm of Hg , with RA mean of 10 to 15. Pulmonic Valve There is no pulmonic valvular stenosis. There is no pulmonic valvular regurgitation. Great Vessels The aortic root is normal size. The inferior vena cava appeared normal and decreased < 50% with respiration (RAP 10-15 mmHg). Effusions There is no pericardial effusion. : MERRILL RENEE > Kourtney Mauro
--- NOTE | 2019-01-17 21:20 | PDOC PROGRESS REPORT ---
Subjective Progress Note for:: 01/17/19 Subjective:: Patient seen by the bedside he sustained a large right cerebral infarct with left-sided hemiparesis hopefully discharge home tomorrow with outpatient PT Reason For Visit: RT TEMPORAL LOBE INFARCT Physical Exam Vital Signs: Temp Pulse Resp BP Pulse Ox 98.3 F 63 16 122/84 100 01/17/19 14:45 01/17/19 16:00 01/17/19 16:00 01/17/19 16:00 01/17/19 16:00 Intake & Output 01/16/19 01/17/19 01/18/19 06:59 06:59 06:59 Intake Total 489 512 9785 Balance 081 032 2698 Weight 90.1 kg 89.9 kg General appearance: PRESENT: no acute distress Eye exam: PRESENT: PERRLA Respiratory exam: PRESENT: clear to auscultation shiv Cardiovascular exam: PRESENT: +S1, +S2 GI/Abdominal exam: PRESENT: soft Neurological exam: PRESENT: alert Results Laboratory Results: 01/14/19 20:10 01/14/19 20:10 01/14/19 01/14/19 01/14/19 20:10 20:10 20:10 Creatine Kinase 557 H CK-MB (CK-2) 2.18 Troponin I < 0.012 01/15/19 01/15/19 01/15/19 02:25 02:25 08:06 Creatine Kinase 453 H 440 H CK-MB (CK-2) 2.15 Troponin I < 0.012 01/15/19 01/15/19 01/15/19 08:06 13:48 13:48 Creatine Kinase 424 H CK-MB (CK-2) 1.74 1.77 Troponin I < 0.012 < 0.012 Impressions: Cervical Spine CT 01/14/19 19:19 IMPRESSION: No fracture or subluxation. Moderate degenerative changes. Head CT 01/14/19 19:19 IMPRESSION: No acute intracranial hemorrhage. Right posterior temporal region of subacute infarction, new from prior study of 02/03/2017. This is consistent with right MCA territory infarction. Chest X-Ray 01/14/19 20:34 IMPRESSION: No acute cardiopulmonary disease. Carotid Doppler Study 01/15/19 00:00 IMPRESSION: NO HEMODYNAMICALLY SIGNIFICANT STENOSIS. Head MRI 01/15/19 00:00 IMPRESSION: Large area of acute infarction right posterior parietal lobe. No hemorrhage. No mass effect. EVIDENCE OF ACUTE STROKE: YES. RIGHT MCA. Assessment & Plan - Diagnosis (1) Acute right MCA stroke Is this a current diagnosis for this admission?: Yes Plan: Patient is managed according to stroke protocol (2) Right temporal lobe infarction Is this a current diagnosis for this admission?: Yes Plan: Patient is admitted to be managed for stroke, MRI brain is ordered, carotid Dopplers ordered start treatment according to the stroke protocol antiplatelet with aspirin, statin therapy with atorvastatin, 2D echo ordered (3) Syncope Qualifiers: Syncope type: unspecified Qualified Code(s): R55 - Syncope and collapse Is this a current diagnosis for this admission?: Yes
[2019-01-17] MEDS: ATORVASTATIN CALCIUM 80 MG TABLET PO SCH (22:55)
[2019-01-18] MEDS: ASPIRIN 81 MG TABLET, ENT COATED PO SCH (09:03)
[2019-01-18] MEDS: ENOXAPARIN SODIUM INJ 40 MG/0.4 ML DISP.SYRIN SUBCUT SCH (09:03)
[2019-01-18] MEDS: METOPROLOL SUCCINATE 25 MG TAB.SR.24H PO SCH (09:04)
[2019-01-18] MEDS: MULTIVITAMIN TABLET PO SCH (09:04)
[2019-01-18] MEDS: AMLODIPINE BESYLATE 10 MG TABLET PO SCH (09:04)
[2019-01-18 14:26] VITALS: BP 136/95
--- NOTE | 2019-01-18 17:01 | PDOC DISCHARGE SUMMARY ---
General - Admit/Disc Date/PCP Admission Date/Primary Care Provider: 01/14/19 21:47 MERRILL RENEE MD Discharge Date: 01/18/19 - Discharge Diagnosis (1) Acute right MCA stroke Is this a current diagnosis for this admission?: Yes (2) Right temporal lobe infarction Is this a current diagnosis for this admission?: Yes (3) Syncope Is this a current diagnosis for this admission?: Yes - Additional Information Discharge Diet: As Tolerated Discharge Activity: Activity As Tolerated Prescriptions: RX: Atorvastatin Calcium [Lipitor 80 mg Tablet] 80 mg PO QHS #90 tablet RX: Aspirin [Ecotrin 81 mg EC Tablet] 162 mg PO DAILY #90 tabec RX: Losartan Potassium 100 mg PO DAILY #90 tablet Home Medications: RX: Metoprolol Succinate [Toprol Xl] 25 mg PO BID 05/18/13 RX: Amlodipine Besylate [Norvasc 10 mg Tablet] 10 mg PO DAILY 02/03/17 RX: Multivitamin/Iron/Folic Acid [Centrum Adults Tablet] 1 each PO DAILY 0 01/15/19 RX: Acetaminophen [Tylenol 325 mg Tablet] 650 mg PO Q6HP PRN tablet 01/18/19 RX: Aspirin [Ecotrin 81 mg EC Tablet] 162 mg PO DAILY #90 tabec 01/18/19 RX: Atorvastatin Calcium [Lipitor 80 mg Tablet] 80 mg PO QHS #90 tablet 01/18/19 RX: Losartan Potassium 100 mg PO DAILY #90 tablet 01/18/19 History of Present Illness History of Present Illness: BUTCH BIRD is a 63 year old male, he came to the emergency room for evaluation of headache left arm numbness and a fall patient stated that while walking up the stairs he tripped over a garden hose causing him to fall backward onto the concrete floor hitting his head and causing him to lose consciousness, he stated that he woke from the floor and was able to ambulate he was subsequently ordered by family members to go to the emergency room for evaluation of his symptoms. He stated that several days before he felt his brother noticed that his speech was slurred. In the emergency room he underwent multiple imaging including the head, CT head without contrast was obtained, it demonstrated right posterior temporal hypodense lesion consistent with subacute infarction the ventricles and the subarachnoid spaces well-preserved no extra-axial fluid collections this CAT scan finding is consistent with right posterior temporal lobe subacute infarction consistent with right MCA territory infarct. Clinically there is no focal deficit, there is no weakness though he has left hemisensory loss, patient is admitted to be managed for stroke Hospital Course Hospital Course: Patient was admitted for the management of acute right MCA infarction. He was managed according to stroke protocol, carotid Doppler was done, demonstrated no significant stenosis of the carotid artery, 2D echo was done, it was normal he has mild residual left-sided weakness, he was started on antiplatelet, aspirin, statin, patient was advised of the need for complete smoking cessation. Is discharged home for outpatient physical therapy Physical Exam Vital Signs: Temp Pulse Resp BP Pulse Ox 98.2 F 72 18 136/95 H 100 01/18/19 14:24 01/18/19 14:24 01/18/19 14:24 01/18/19 14:24 01/18/19 14:24 Intake & Output 01/17/19 01/18/19 01/19/19 06:59 06:59 06:59 Intake Total 932 1749 320 Balance 932 1749 320 Weight 89.9 kg 91.1 kg General appearance: PRESENT: no acute distress, well-developed, well-nourished Head exam: PRESENT: atraumatic, normocephalic Eye exam: PRESENT: conjunctiva pink, EOMI, PERRLA Ear exam: PRESENT: normal external ear exam Mouth exam: PRESENT: moist, tongue midline Neck exam: PRESENT: full ROM Respiratory exam: PRESENT: clear to auscultation shiv Cardiovascular exam: PRESENT: RRR, +S1, +S2 Vascular exam: PRESENT: normal capillary refill GI/Abdominal exam: PRESENT: normal bowel sounds, soft Rectal exam: PRESENT: deferred Neurological exam: PRESENT: alert, CN II-XII grossly intact Psychiatric exam: PRESENT: appropriate affect, normal mood Skin exam: PRESENT: dry, intact, warm Results Laboratory Results: 01/14/19 20:10 01/14/19 20:10 01/14/19 01/14/19 01/14/19 20:10 20:10 20:10 Creatine Kinase 557 H CK-MB (CK-2) 2.18 Troponin I < 0.012 01/15/19 01/15/19 01/15/19 02:25 02:25 08:06 Creatine Kinase 453 H 440 H CK-MB (CK-2) 2.15 Troponin I < 0.012 01/15/19 01/15/19 01/15/19 08:06 13:48 13:48 Creatine Kinase 424 H CK-MB (CK-2) 1.74 1.77 Troponin I < 0.012 < 0.012 Impressions: Cervical Spine CT 01/14/19 19:19 IMPRESSION: No fracture or subluxation. Moderate degenerative changes. Head CT 01/14/19 19:19 IMPRESSION: No acute intracranial hemorrhage. Right posterior temporal region of subacute infarction, new from prior study of 02/03/2017. This is consistent with right MCA territory infarction. Chest X-Ray 01/14/19 20:34 IMPRESSION: No acute cardiopulmonary disease. Carotid Doppler Study 01/15/19 00:00 IMPRESSION: NO HEMODYNAMICALLY SIGNIFICANT STENOSIS. Head MRI 01/15/19 00:00 IMPRESSION: Large area of acute infarction right posterior parietal lobe. No hemorrhage. No mass effect. EVIDENCE OF ACUTE STROKE: YES. RIGHT MCA. Qualifiers - * PATIENT BEING DISCHARGED WITH ANY OF THE FOLLOWING DIAGNOSIS: Stroke VTE patient discharged on overlapping Therapy?: No Reason(s) for not prescribing Overlap Therapy:: Not indicated Stroke Pt being discharged on Anti-thrombolytic therapy?: Yes Stroke Pt being discharged on Anti-coagulation therapy?: No Reason(s) for not prescribing Anti-coagulation therapy:: Not indicated Stroke Pt being discharged on Statins?: Yes OK Pt being discharged on Aspirin therapy?: No Reason(s) for not prescribing Aspirin therapy:: Not indicated OK Pt being discharged on Statins?: No Reason(s) for not prescribing Statin therapy:: Not indicated OK Pt discharged ACEI/ARBS?: No Reason(s) for not prescribing ACEI/ARBS:: Not indicated Acute Heart Failure - Is this a Heart Failure Patient?: No 3. Anticoagulant therapy for permanect/persistent/paraoxysmal Afib or Aflutter: Yes
== END 2019-01-18 15:45 | disposition home or self-care (01) | DRG 65 ==
LOC: ER 18:56 → EH 21:47 → 3W 01-15 00:47
PROVIDERS: ADMIT Internal Medicine; ATTEND Internal Medicine
DX: I63.511 Cerebral infarction due to unspecified occlusion or stenosis of right middle cerebral artery (principal); G81.94 Hemiplegia, unspecified affecting left nondominant side; I10 Essential (primary) hypertension; M19.90 Unspecified osteoarthritis, unspecified site; F31.9 Bipolar disorder, unspecified; Z91.81 History of falling; R20.8 Other disturbances of skin sensation; Z88.8 Allergy status to other drugs, medicaments and biological substances; Z96.651 Presence of right artificial knee joint; Z79.82 Long term (current) use of aspirin
CPT/HCPCS: 36415; 70450; 70551; 71045; 72125; 80053; 80061; 81001; 82550; 82553; 82803; 84484; 85025; 85610; 85730; 93005; 93010; 93306; 93880; 96361; 96374; 96375; 99285; 99406; J1200; J1650; J2765; J7030

== ENCOUNTER → 2019-12-18 | Outpatient (CLI) | payer MEDICAID ==
--- NOTE | 2019-12-18 18:04 | RADIOLOGY REPORT (SQ) ---
EXAM DESCRIPTION: MRI HEAD WITHOUT IMAGES COMPLETED DATE/TIME: 12/18/2019 5:37 pm REASON FOR STUDY: I63.9 CEREBRAL INFARCTION, UNSPECIFIED I63.9 CEREBRAL INFARCTION, UNSPECIFIED COMPARISON: 01/15/2019 TECHNIQUE: Multiplanar imaging includes non-contrasted T1, T2, FLAIR, and diffusion with ADC map seq uences. Images stored on PACS. LIMITATIONS: None. FINDINGS: ANATOMY: No anomalies. Normal vascular flow voids. Pituitary fossa normal. CSF SPACES: Normal in size and contour. No hemorrhage. CEREBRUM: Sulci and gyri normal in size and contour. Normal white matter signal on FLAIR imaging. No evidence of hemorrhage, mass, or extraaxial fluid collection. Large, old right posterior parietal i nfarction. POSTERIOR FOSSA: No signal alteration. No hemorrhage. No edema, masses or mass effect. Internal antionette tory canals, cerebello-pontine angles, mastoids normal. DIFFUSION IMAGING: Negative for acute or sub-acute infarction. ORBITS: No masses. Globes normal. PARANASAL SINUSES: No fluid levels. Mucosa normal. OTHER: No other significant finding. IMPRESSION: Old right parietal infarction. No acute findings in the brain. EVIDENCE OF ACUTE STROKE: NO. TECHNICAL DOCUMENTATION: JOB ID: [id number] 2010 [employer]- All Rights Reserved Reading location - IP/workstation name: [email or web address]
== END ==
LOC: RAD 16:56
PROVIDERS: ATTEND Internal Medicine
DX: I63.9 Cerebral infarction, unspecified (principal)
CPT/HCPCS: 70551

== ENCOUNTER 2020-05-08 13:28 | Emergency (ER) | payer MEDICAID ==
--- NOTE | 2020-05-08 15:25 | RADIOLOGY REPORT (SQ) ---
EXAM DESCRIPTION: CHEST SINGLE VIEW IMAGES COMPLETED DATE/TIME: 05/08/2020 3:15 pm REASON FOR STUDY: weakness COMPARISON: 01/14/2019 EXAM PARAMETERS: NUMBER OF VIEWS: One view. TECHNIQUE: Single frontal radiographic view of the chest acquired. RADIATION DOSE: NA LIMITATIONS: None. FINDINGS: LUNGS AND PLEURA: No opacities, masses or pneumothorax. No pleural effusion. MEDIASTINUM AND HILAR STRUCTURES: No masses. Contour normal. HEART AND VASCULAR STRUCTURES: Heart normal in size. Normal vasculature. BONES: No acute findings. HARDWARE: None in the chest. OTHER: No other significant finding. IMPRESSION: NO ACUTE RADIOGRAPHIC FINDING IN THE CHEST. TECHNICAL DOCUMENTATION: JOB ID: [id number] 2010 [employer] All Rights Reserved Reading location - IP/workstation name: [email or web address]
--- NOTE | 2020-05-08 15:46 | ER Document Report ---
ED General - General Chief Complaint: General Weakness Stated Complaint: GENERAL WEAKNESS Time Seen by Provider: 05/08/20 14:02 Primary Care Provider: MERRILL RENEE MD [Primary Care Provider] - Follow up as needed TRAVEL OUTSIDE OF THE [place] IN LAST 30 DAYS: No - HPI Notes: Chief complaint: Generalized weakness History of present illness: 65-year-old male patient of Dr. Renee presents for evaluation of generalized weakness over the last 2 to 3 weeks. Patient has had a previous stroke back in December of this year and was left with minimal residual from this. He currently does not use a cane or walker. He says his legs have felt somewhat weak like they are going to give out intermittently. He also has a history of chronic arthritic pain and says that his arms and legs are frequently sore. He denies any focal weakness. He denies headache at this time. He denies fever or chills. He denies respiratory symptoms and says he is eating and drinking normally. Patient has history of hypertension and hyperlipidemia and is on multiple medications. No recent changes in his medicines. He smokes about 1/2 pack of cigarettes per day. He drinks about 2 beers per day. He has a past history of abuse of cannabis and drugs but says he is not using either presently. He is currently living with his brother. - Related Data Allergies/Adverse Reactions: lisinopril Allergy (Verified 05/08/20 13:56) Angioedema Past Medical History - General Information source: POA - Power of Home [employer] Work[employer] - Social History Smoking Status: Current Every Day Smoker Frequency of alcohol use: Social Drug Abuse: None Family History: Malignancy, Reviewed & Not Pertinent - Past Medical History Cardiac Medical History: Reports: Hx Hypercholesterolemia, Hx Hypertension Denies: Hx Coronary Artery Disease, Hx Heart Attack Pulmonary Medical History: Denies: Hx Asthma, Hx Bronchitis, Hx COPD, Hx Pneumonia Neurological Medical History: Reports: Hx Cerebrovascular Accident. Denies: Hx Seizures Endocrine Medical History: Denies: Hx Diabetes Mellitus Type 1, Hx Diabetes Mellitus Type 2 Renal/ Medical History: Denies: Hx Peritoneal Dialysis GI Medical History: Musculoskeletal Medical History: Reports Hx Arthritis, Reports Hx Musculoskeletal Deformity, Reports Hx Musculoskeletal Trauma Psychiatric Medical History: Reports: Hx Depression Infectious Medical History: Past Surgical History: Reports: Hx Orthopedic Surgery - right knee replacement/neck - Immunizations Hx Diphtheria, Pertussis, Tetanus Vaccination: Yes Review of Systems - Review of Systems Notes: Constitutional: Negative for fever. HENT: Negative for sore throat. Eyes: Negative for visual changes. Cardiovascular: Negative for chest pain. Respiratory: Negative for shortness of breath. Gastrointestinal: Negative for abdominal pain, vomiting or diarrhea. Genitourinary: Negative for dysuria. Musculoskeletal: Chronic musculoskeletal pain. Skin: Negative for rash. Neurological: Negative for headaches, focal weakness or numbness. 10 point ROS negative except as marked above and in HPI. Physical Exam - Vital signs Vitals: Temp Pulse Resp BP Pulse Ox 98.1 F 85 20 132/89 H 99 05/08/20 13:36 05/08/20 13:36 05/08/20 13:36 05/08/20 13:36 05/08/20 13:36 - Notes Notes: GENERAL: Well-developed well-nourished male approximately stated age appearing in no acute distress. SKIN: Good turgor no rashes. HEAD: Normocephalic atraumatic. EYES: PERRLA. EOMI. Conjunctivae and sclerae clear. EARS: CANALS AND TMS CLEAR. NOSE: CLEAR. MOUTH: Moist mucosa. Good dentition. No stridor or edema. No drooling. NECK: Supple. No masses or thyromegaly. No adenopathy. Carotids 2+ without bruits. No JVD. BACK: Symmetrical without tenderness. CHEST: Respirations unlabored. Breath sounds clear and symmetrical. HEART: Regular rhythm. No murmur gallop or rub. ABDOMEN: Soft nontender without masses, organomegaly or rebound. Bowel sounds normally active. No bruits. GENITALIA: Deferred. EXTREMITIES: No edema. No calf tenderness. Cap refill less than 1.5 seconds. Dorsalis pedis and posterior tibial pulses 3+ and symmetrical. NEUROLOGICAL: GCS 15. Alert and oriented x3. Normal gait. Fluent speech. Cranial nerves II through XII intact. Sensorimotor and cerebellar normal. Normal tone. PSYCHIATRIC: Appropriate affect. Course - Re-evaluation Re-evalutation: 05/08/20 18:16 Is a 65-year-old man whose had a past CVA and is being treated with multiple medications for hypertension and chronic pain issues. He comes in today complaining of at times his legs feel weak bilaterally and feel like they will give out although he has not actually fallen. He also has ongoing chronic musculoskeletal pain which is being treated aggressively by his primary care provider Dr. Renee. Vital signs were stable here and he was afebrile. His exam did not show any focal weakness or any other substantial abnormalities. Lab studies here included a CBC, comprehensive metabolic profile and urinalysis all of which were unremarkable. Head CT showed changes of old stroke and associated encephalomalacia with no acute findings per radiology. His chest x-ray showed no infiltrates or other abnormalities per radiology. His EKG showed no acute changes. I basically reassured patient and advised him to stay on all current medications and follow-up with his primary care physician. Findings, clinical impression and plan of treatment have been discussed with patient/family. Understanding of current findings and recommendations has been acknowledged by them and there is agreement regarding disposition and follow-up. - Vital Signs Vital signs: Temp Pulse Resp BP Pulse Ox 98.1 F 85 16 139/105 H 97 05/08/20 13:36 05/08/20 13:36 05/08/20 17:01 05/08/20 17:01 05/08/20 17:01 - Laboratory Results Result Diagrams: 05/08/20 14:10 05/08/20 16:35 Laboratory Results Interpreted: 05/08/20 05/08/20 05/08/20 14:10 16:35 16:40 RBC 4.12 L RDW 14.2 H Sodium 135.5 L Urine Protein 30 H Critical Laboratory Results Reviewed: No Critical Results - Radiology Results Radiology Results Interpreted: 05/08/20 15:43 Chest X-Ray 05/08/20 15:02 IMPRESSION: NO ACUTE RADIOGRAPHIC FINDING IN THE CHEST. 05/08/20 18:16 Chest X-Ray 05/08/20 15:02 IMPRESSION: NO ACUTE RADIOGRAPHIC FINDING IN THE CHEST. Head CT 05/08/20 15:38 IMPRESSION: No evidence of acute intracranial abnormality. Stable background of encephalomalacia and chronic microvascular ischemic changes. EVIDENCE OF ACUTE STROKE: NO. Critical Radiology Results Reviewed: No Critical Results - EKG Interpretation by Me Additional EKG results interpreted by me: 05/08/20 15:43 Twelve-lead EKG reviewed by me contemporaneously: 1541 hrs. Indication for study: Generalized weakness Rhythm: Normal sinus Rate: 65 Intervals: Normal intervals QRS axis: -[address]/T wave changes: Nonspecific Comparison with prior tracing: No significant changes compared with prior study 01/15/2019 Interpretation: Left axis deviation and nonspecific T wave changes. Discharge - Discharge Clinical Impression: Generalized weakness, Chronic pain syndrome, Late effects of old CVA Condition: Stable Disposition: HOME, SELF-CARE Additional Instructions: Continue all current medications. Schedule a visit with your primary care pr ovider within the next 1 week. Return here as needed for new or worsening symptoms. Referrals: MERRILL RENEE MD [Primary Care Provider] - Follow up as needed
[2020-05-08 16:32] LABS: ABSOLUTE BASOPHILS # (AUTO) 0.1 10^3/uL (0.0-0.2); ABSOLUTE EOSINOPHILS # (AUTO) 0.1 10^3/uL (0.0-0.6); ABSOLUTE LYMPHOCYTES (AUTO) 3.3 10^3/uL (0.5-4.7); ABSOLUTE MONOCYTES (AUTO) 0.5 10^3/uL (0.1-1.4); ABSOLUTE NEUT (AUTO) 3.5 10^3/uL (1.7-8.2); BASOPHILS % (AUTO) 0.9 % (0-2); EOSINOPHILS % (AUTO) 1.6 % (0-6); HEMATOCRIT 38.5 % (37.9-51.0); HEMOGLOBIN 13.6 g/dL (13.5-17.0); LYMPHOCYTES % (AUTO) 43.7 % (13-45); MEAN CORPUSCULAR HGB CONC 35.3 g/dL (32.0-36.0); MEAN CORPUSCULAR VOLUME 93 fl (80-97); MONOCYTES % (AUTO) 7.2 % (3-13); PLATELET COUNT 237 10^3/uL (150-450); RED BLOOD COUNT 4.12 10^6/uL (4.35-5.55); RED CELL DISTRIBUTION WIDTH 14.2 % (11.5-14.0); SEGMENTED NEUTROPHILS % (AUTO) 46.6 % (42-78); TOTAL CELLS COUNTED % (AUTO) 100 %; WHITE BLOOD COUNT 7.6 10^3/uL (4.0-10.5)
--- NOTE | 2020-05-08 16:35 | RADIOLOGY REPORT (SQ) ---
EXAM DESCRIPTION: CT HEAD WITHOUT IMAGES COMPLETED DATE/TIME: 05/08/2020 4:19 pm REASON FOR STUDY: generalized weakness; old CVA COMPARISON: 12/18/2027 TECHNIQUE: Axial images acquired through the brain without intravenous contrast. Images reviewed wi th bone, brain and subdural windows. Additional sagittal and coronal reconstructions were generated. Images stored on PACS. All CT scanners at this facility use dose modulation, iterative reconstruction, and/or weight based d osing when appropriate to reduce radiation dose to as low as reasonably achievable (ALARA). [facility]: Dose Right [facility]: CareDose [facility]: Dose Right [facility]: Teradose 4D [facility]: [employer] RADIATION DOSE: CT Rad equipment meets quality standard of care and radiation dose reduction techniq ues were employed. CTDIvol: 53.2 mGy. DLP: 1017 mGy-cm. mGy. LIMITATIONS: None. FINDINGS: VENTRICLES: Mild ex vacuo dilatation of the occipital horn of the right lateral ventricle. CEREBRUM: No masses. No hemorrhage. No midline shift. Re- demonstration of a right parieto-occipit al encephalomalacia. Additional scattered areas of low density in the white matter most likely due t o chronic micro-vascular ischemic change. No evidence for acute infarction. CEREBELLUM: No masses. No hemorrhage. No alteration of density. No evidence for acute infarction. EXTRAAXIAL SPACES: No fluid collections. No masses. ORBITS AND GLOBE: No intra- or extraconal masses. Normal contour of globe without masses. CALVARIUM: No fracture. PARANASAL SINUSES: No fluid or mucosal thickening. SOFT TISSUES: No mass or hematoma. OTHER: No other significant finding. IMPRESSION: No evidence of acute intracranial abnormality. Stable background of encephalomalacia an d chronic microvascular ischemic changes. EVIDENCE OF ACUTE STROKE: NO. TECHNICAL DOCUMENTATION: JOB ID: [id number] Quality ID # [id number]: Final reports with documentation of one or more dose reduction techniques (e.g., Au tomated exposure control, adjustment of the mA and/or kV according to patient size, use of iterative reconstruction technique) 2010 [employer]- All Rights Reserved Reading location - IP/workstation name: [email or web address]
[2020-05-08 17:15] LABS: ALBUMIN 4.2 g/dL (3.5-5.0); ALKALINE PHOSPHATASE 81 U/L (38-126); ANION GAP 7 (5-19); ASPARTATE AMINO TRANSFERASE 36 U/L (17-59); BILIRUBIN,DIRECT 0.1 mg/dL (0.0-0.4); BILIRUBIN,TOTAL 0.5 mg/dL (0.2-1.3); BLOOD UREA NITROGEN 15 mg/dL (7-20); CALCIUM 9.7 mg/dL (8.4-10.2); CARBON DIOXIDE 24 mmol/L (22-30); CHLORIDE 105 mmol/L (98-107); GLUCOSE 93 mg/dL (75-110); POTASSIUM 4.1 mmol/L (3.6-5.0); TOTAL PROTEIN 7.2 g/dL (6.3-8.2)
[2020-05-08 17:42] LABS: APPEARANCE,URINE CLEAR; BILIRUBIN,URINE NEGATIVE (NEGATIVE); COLOR,URINE YELLOW; GLUCOSE, URINE NEGATIVE (NEGATIVE); KETONES,URINE NEGATIVE (NEGATIVE); PROTEIN,URINE 30 mg/dL (NEGATIVE); URINE SPECIFIC GRAVITY 1.023; UROBILINOGEN,URINE NEGATIVE mg/dL (<2.0)
--- NOTE | 2020-05-08 18:51 | EKG REPORT ---
SEVERITY:- BORDERLINE ECG - SINUS RHYTHM LEFT AXIS DEVIATION CONSIDER ANTERIOR INFARCT BORDERLINE T ABNORMALITIES, INFERIOR LEADS : Confirmed by: Chandni Boone 08-May-2020 18:50:19
[2020-05-08 19:17] VITALS: BP 136/102
== END 2020-05-08 19:32 | disposition home or self-care (01) ==
LOC: ER 13:28
DX: I69.359 Hemiplegia and hemiparesis following cerebral infarction affecting unspecified side (principal); G89.4 Chronic pain syndrome; M79.601 Pain in right arm; M79.602 Pain in left arm; M79.604 Pain in right leg; M79.605 Pain in left leg; I10 Essential (primary) hypertension; E78.5 Hyperlipidemia, unspecified; Z79.899 Other long term (current) drug therapy; F17.210 Nicotine dependence, cigarettes, uncomplicated; F10.10 Alcohol abuse, uncomplicated; Z88.8 Allergy status to other drugs, medicaments and biological substances
CPT/HCPCS: 36415; 70450; 71045; 80053; 81001; 85025; 93005; 93010; 99285